=== PATIENT | female | born 1965 | race Caucasian/White ===

== ENCOUNTER 2020-03-24 16:25 | Outpatient (REF) | payer OTHER, SELFPAY | END 2020-03-24 16:26 | disposition home or self-care (01) | LOC: HO.LAB 16:25 | PROVIDERS: Visit Provider Internal Medicine | DX: Z20.828 Contact with and (suspected) exposure to other viral communicable diseases (principal) | CPT/HCPCS: 87635 ==

== ENCOUNTER 2020-04-09 08:55 | Outpatient (REF) | payer OTHER, SELFPAY | END 2020-04-09 08:56 | disposition home or self-care (01) | LOC: HO.LAB 08:55 | PROVIDERS: Visit Provider Internal Medicine | DX: Z20.828 Contact with and (suspected) exposure to other viral communicable diseases (principal) | CPT/HCPCS: 87635 ==

== ENCOUNTER 2020-04-28 08:46 | Outpatient (REF) | payer OTHER, SELFPAY | END 2020-04-28 08:47 | disposition home or self-care (01) | LOC: HO.LAB 08:46 | PROVIDERS: PCP Internal Medicine; Visit Provider Internal Medicine | DX: Z20.828 Contact with and (suspected) exposure to other viral communicable diseases (principal) | CPT/HCPCS: C9803; U0003 ==

== ENCOUNTER 2020-05-27 11:35 | Outpatient (REF) | payer OTHER, SELFPAY | END 2020-05-27 11:36 | disposition home or self-care (01) | LOC: HO.LAB 11:35 | PROVIDERS: PCP Internal Medicine; Visit Provider Internal Medicine | DX: Z20.828 Contact with and (suspected) exposure to other viral communicable diseases (principal) | CPT/HCPCS: C9803; U0003 ==

== ENCOUNTER 2022-05-16 14:00 | Outpatient (RCR) | payer OTHER, SELFPAY | END 2022-05-16 14:57 | disposition home or self-care (01) | LOC: HO.PT 14:00 | PROVIDERS: PCP Internal Medicine; Visit Provider Internal Medicine | DX: M54.50 Low back pain, unspecified (principal); M46.1 Sacroiliitis, not elsewhere classified | CPT/HCPCS: 97110; 97112; 97140; 97161 ==

== ENCOUNTER 2022-12-16 08:58 | Outpatient (REF) | payer OTHER, SELFPAY ==
[2022-12-19 13:37] LABS: TS Negative Control Passed; TS Panel A 2; TS Panel B 0; TS Positive Control Passed; TSpotTB Negative (Negative)
[2022-12-19 23:54] LABS: Rubeola IgG (Measles) >300.00 AU/mL
[2022-12-20 15:43] LABS: Anti Nuclear Antibody Screen NEGATIVE (NEGATIVE)
== END 2022-12-16 08:59 | disposition home or self-care (01) ==
LOC: HO.LAB 08:58
PROVIDERS: Visit Provider Internal Medicine
DX: Z01.84 Encounter for antibody response examination (principal); M25.50 Pain in unspecified joint; R19.7 Diarrhea, unspecified
CPT/HCPCS: 36415; 80061; 80076; 82306; 85025; 86038; 86140; 86431; 86481; 86735; 86762; 86765

== ENCOUNTER 2023-06-07 12:50 | Outpatient (REF) | payer OTHER, SELFPAY | END 2023-06-07 12:51 | disposition home or self-care (01) | LOC: HO.XRAY 12:50 | PROVIDERS: PCP Internal Medicine; Visit Provider Internal Medicine | DX: M72.2 Plantar fascial fibromatosis (principal) | CPT/HCPCS: 73630 ==

== ENCOUNTER 2023-07-10 10:35 | Outpatient (REF) | payer OTHER, SELFPAY ==
[2023-07-10 11:13] LABS: COVID-19 Test Negative (Negative); IDNOW Serial# 58CA691E; IDNOW Serial# 9DB6401D; Influenza A Negative (Negative); Influenza B2 Negative (Negative)
== END 2023-07-10 10:36 | disposition home or self-care (01) ==
LOC: HO.LAB 10:35
PROVIDERS: Visit Provider Physician Assistant Medical
DX: Z11.52 Encounter for screening for COVID-19 (principal); M79.10 Myalgia, unspecified site; R68.89 Other general symptoms and signs
CPT/HCPCS: 87502; 87635

== ENCOUNTER 2023-10-12 07:23 | Outpatient (REF) | payer OTHER, SELFPAY ==
[2023-10-12 09:19] LABS: Cholesterol 197 mg/dL (<200); HDL Cholesterol 76 mg/dL (>40); LDL Cholesterol Calculated 112 mg/dL (<100); Triglycerides 45 mg/dL (<150)
[2023-10-12 09:51] LABS: Cortisol Random 10.9 ug/dL
[2023-10-12 18:22] LABS: Cortisol Random 6.8 ug/dL
[2023-10-13 07:24] LABS: LDL Cholesterol Direct 88 mg/dL (<100)
[2023-10-18 14:08] LABS: Adrenocorticotropic Hormone 10 pg/mL (6-50)
== END 2023-10-12 07:24 | disposition home or self-care (01) ==
LOC: HO.LAB 07:23
PROVIDERS: PCP Internal Medicine; Visit Provider Nurse Practitioner Family
DX: R53.83 Other fatigue (principal); E78.5 Hyperlipidemia, unspecified
CPT/HCPCS: 36415; 80061; 82024; 82533; 83721

== ENCOUNTER 2023-11-30 11:23 | Outpatient (REF) | payer OTHER, SELFPAY ==
--- NOTE | ~2023-11-30 | XR_ITS ---
Examination: Bilateral knees CLINICAL INFORMATION: Pain COMPARISON: 07/18/2019 right knee TECHNIQUE: AP, lateral, oblique views of both knees. FINDINGS: Left kidney revealed no evidence of joint effusion fractures or osseous destruction. There is no narrowing of the joint spaces. Right knee revealed no evidence of fractures, dislocation, joint effusion. Osseous structures are unremarkable. XR/XR knee LT 3V IMPRESSION: unremarkable bilateral knees
--- NOTE | ~2023-11-30 | XR_ITS ---
Examination: Right hand and right wrist. COMPARISON: None TECHNIQUE: 3 views of right hand and right wrist CLINICAL INFORMATION: Pain FINDINGS: There is no evidence of fractures or osseous destruction. No evidence of osteoarthritis. Soft tissues unremarkable. XR/XR hand RT min 3V IMPRESSION: no abnormal findings
--- NOTE | ~2023-11-30 | XR_ITS ---
Examination: Bilateral knees CLINICAL INFORMATION: Pain COMPARISON: 07/18/2019 right knee TECHNIQUE: AP, lateral, oblique views of both knees. FINDINGS: Left kidney revealed no evidence of joint effusion fractures or osseous destruction. There is no narrowing of the joint spaces. Right knee revealed no evidence of fractures, dislocation, joint effusion. Osseous structures are unremarkable. XR/XR knee RT 3V IMPRESSION: unremarkable bilateral knees
--- NOTE | ~2023-11-30 | XR_ITS ---
Examination: Right hand and right wrist. COMPARISON: None TECHNIQUE: 3 views of right hand and right wrist CLINICAL INFORMATION: Pain FINDINGS: There is no evidence of fractures or osseous destruction. No evidence of osteoarthritis. Soft tissues unremarkable. XR/XR wrist RT min 3V IMPRESSION: no abnormal findings
== END 2023-11-30 11:24 | disposition home or self-care (01) ==
LOC: HO.HHCX 11:23
PROVIDERS: Visit Provider Internal Medicine
DX: M17.10 Unilateral primary osteoarthritis, unspecified knee (principal); M65.9 Synovitis and tenosynovitis, unspecified; M25.531 Pain in right wrist; M79.641 Pain in right hand
CPT/HCPCS: 73110; 73130; 73562

== ENCOUNTER 2023-12-05 09:24 | Outpatient (REF) | payer OTHER, SELFPAY ==
[2023-12-05 12:24] LABS: Cholesterol 205 mg/dL (<200); HDL Cholesterol 80 mg/dL (>40); LDL Cholesterol Calculated 117 mg/dL (<100); Triglycerides 41 mg/dL (<150)
[2023-12-05 12:34] LABS: Erythrocyte Sedimentation Rate 6 MM/HR (0-20)
[2023-12-05 12:43] LABS: TSH reflex Free T4 2.42 uIU/mL (0.32-4.0); Vitamin D 25-OH Total 51.8 ng/mL (>30)
[2023-12-05 13:16] LABS: Reflex LDLD? No
== END 2023-12-05 09:25 | disposition home or self-care (01) ==
LOC: HO.HHCL 09:24
PROVIDERS: Visit Provider Internal Medicine
DX: M17.0 Bilateral primary osteoarthritis of knee (principal); M17.10 Unilateral primary osteoarthritis, unspecified knee
CPT/HCPCS: 36415; 80061; 82306; 84443; 85652

== ENCOUNTER 2024-02-29 10:58 | Outpatient (REF) | payer OTHER, SELFPAY ==
--- NOTE | ~2024-02-29 | XR_ITS ---
EXAMINATION: XR FOOT, RIGHT CLINICAL INFORMATION: Right foot trauma. Pain. COMPARISON: Right foot x-rays of 06/07/2023 TECHNIQUE: AP, lateral, and oblique views of the right foot. FINDINGS: There is no evidence of acute fracture or dislocation. No focal erosion. Normal osseous mineralization. No soft tissue air or radiopaque foreign body is seen. No significant abnormality of the bones, joints or soft tissues is demonstrated. XR/XR foot RT min 3V IMPRESSION: No evidence of acute fracture or dislocation in the right foot. Electronically signed by: Norman Haji MD 03/14/2024 10:13 AM EDT
--- NOTE | ~2024-02-29 | XR_ITS ---
EXAMINATION: XR KNEE, LEFT CLINICAL INFORMATION: Left knee pain COMPARISON: Left knee x-rays of 11/30/2023 TECHNIQUE: Three views of the left knee. FINDINGS: Probable minimal narrowing of the knee joint spaces. No evidence of significant subarticular sclerosis and cystic changes. Minimal motion artifacts are noted. No evidence of acute fracture or dislocation. No suprapatellar joint effusion. No significant marginal osteophytic changes are noted. No evidence of radiopaque foreign body or soft tissue air. No soft tissue calcifications. XR/XR knee LT 3V IMPRESSION: No evidence of acute fracture or dislocation in the left knee. Minimal degenerative changes in the left knee. Electronically signed by: Norman Haji MD 03/14/2024 10:19 AM EDT
== END 2024-02-29 10:59 | disposition home or self-care (01) ==
LOC: HO.XRAY 10:58
PROVIDERS: PCP Internal Medicine; Visit Provider Internal Medicine
DX: S99.921A Unspecified injury of right foot, initial encounter (principal); S93.601A Unspecified sprain of right foot, initial encounter; M17.12 Unilateral primary osteoarthritis, left knee
CPT/HCPCS: 73562; 73630

== ENCOUNTER 2024-03-15 09:20 | Outpatient (REF) | payer OTHER, SELFPAY ==
[2024-03-21 23:12] LABS: Testosterone, Total 50 ng/dL (2-45)
== END 2024-03-15 09:21 | disposition home or self-care (01) ==
LOC: HO.HHCL 09:20
PROVIDERS: Visit Provider Advanced Practice Midwife
DX: R37 Sexual dysfunction, unspecified (principal); Z79.899 Other long term (current) drug therapy
CPT/HCPCS: 36415; 84403

== ENCOUNTER 2024-05-21 17:13 | Outpatient (REF) | payer OTHER, SELFPAY ==
[2024-05-22 11:47] LABS: Bacterial Vaginosis PCR NEGATIVE (Negative); Candida Group PCR NOT DETECTED (Not Detect); Candida glab krusei PCR NOT DETECTED (Not Detect); Trichomonas vaginalis PCR NOT DETECTED (Not Detect)
--- OUTSIDE RECORDS SUMMARY | 2024-05-22 22:30 | XMS_ITS ---
Author Name [facility] Organization Unknown Results Test Name/Text Value Interpretation Date Range Source TSH WITH REFLEX T4 FREE 1.92uIU/mL Normal [id number] 0.35 - 4.5 [facility] PROLACTIN 6.6ng/mL Normal [id number] [facility] VITAMIN D (25-HYDROXY) 37.4ng/mL Normal [id number] 30 - 100 [facility] WBC 5.6K/uL Normal [id number] 3.7 - 10.3 [facility] ABSOLUTE GRANULOCYTES 3.1K/uL Normal [id number] 2.2 - 7.3 [facility] ABSOLUTE BASO 0.1K/uL Normal [id number] 0 - 0.2 [facility] RBC 4.42M/uL Normal [id number] 4 - 5.4 [facility] H IMMATURE GRANULOCYTES 0% Normal [id number] 0 - 0 .45 [facility] EOSINOPHILS 3% Normal [id number] 0 - 6 [facility] MPV 11fL Normal [id number] 8 - 12 [facility] H ABSOLUTE MONOS 0.4K/uL Normal [id number] 0.2 - 1.5 CT [facility] BASOPHILS 1% Normal [id number] 0 - 2 [facility] H NUCLEATED RBC 0% Normal [id number] 0 - 0.2 [facility] MCV 92fL Normal [id number] 83 - 102 [facility] H MCH 30PG Normal [id number] 27 - 34 [facility] H HCT 40.6% Normal [id number] 36 - 46 [facility] H ABSOLUTE LYMPHS 1.8K/uL Normal [id number] 1.5 - 4.9 C [facility] GRANULOCYTES 56% Normal [id number] 23 - 78 [facility] MONOCYTES 7% Normal [id number] 0 - 12 [facility] H ABSOLUTE EOS 0.2K/uL Normal [id number] 0 - 0.7 [facility] LYMPHS 32% Normal [id number] 16 - 50 [facility] H ABSOLUTE IMMATURE GRANULOCYTES 0K/uL Normal [id number] 0 - 0.3 [facility] HGB 13.2g/dL Normal [id number] 12.1 - 15.7 [facility] MMH RDW 14.1% Above high normal [id number] 11.1 - 13 .3 [facility] PLATELET COUNT 205K/uL Normal [id number] 150 - 480 [facility] MCHC 32.5g/dL Normal [id number] 31 - 36 [facility] ABSOLUTE NUCLEATED RBC 0K/uL Normal [id number] 0 - 0.012 [facility]
== END 2024-05-21 17:14 | disposition home or self-care (01) ==
LOC: HO.HHCLNP 17:13
PROVIDERS: Visit Provider Advanced Practice Midwife
DX: N89.8 Other specified noninflammatory disorders of vagina (principal)
CPT/HCPCS: 0352U

== ENCOUNTER 2024-11-27 12:46 | Outpatient (REF) | payer OTHER, SELFPAY ==
--- NOTE | ~2024-11-27 | XR_ITS ---
EXAMINATION: XR HIP, RIGHT CLINICAL INFORMATION: right hip pain COMPARISON: None available. TECHNIQUE: Two views of the right hip. FINDINGS: No fracture. Alignment is anatomic. Hip joint space is maintained. Soft tissues are unremarkable. XR/XR hip RT min 2V IMPRESSION: Normal right hip. Electronically signed by: Dante Hagan MD 11/27/2024 02:00 PM EDT
--- OUTSIDE RECORDS SUMMARY | 2024-11-27 14:36 | XMS_ITS | Encounter Summary ---
Author Organization [employer] Address [address] [facility] [place] [address] Care Team Providers Care Sales Consultant Insurance Name Role Phone Amara Lou MD Primary Care Provider + Reason for Visit * Reason Comments Med Refill Encounter Details Date Type Department Care Team ([facility] st Contact Info) Description 09/06/2023 Refill [facility] OPTOMETRY [address] [place], [place] [phone] Garrett, Jaqueline, OD [address] [place] [address] Social History Tobacco Use Types Packs/Day Years Used Date Smoking Tobacco: Never Smokeless Tobacco: Never Alcohol Use Standard Drinks/Week Comments Never 0 (1 standard drink = 0.6 oz pur e alcohol) Housing Stability Answer Date Recorded What is your housing situation today? I have sharlajane cole 04/11/[address] you li ve. Do you have problems with any of the following? None of the above 04/11/2023 Food Insecurity Answer Date Recorded Within the past 12 months, y ou worried that your food would run out before you got money to buy more: Never True 04/11/2023 Within the past 12 months,th e food you bought just didn't last and you didn't have enough money to get more: Never True Transportation Answer Date Recorded In the past 12 months, has l ack of transportation kept you from medical appts, meetings, work or from getting things needed for daily living? No 04/11/2023 Utilities Answer Date Recorded In the past 12 months, has t he electric, gas, oil or water company threatened to shut off services in your home? No 04/11/2023 Depression Answer Date Recorded Patient Health Questionnaire-2 Score 0 11/24/2022 Comments Unknown Sex and Gender Information Value Date Recorded Sex Assigned at Female 04/11/2022 10:16 AM EDT Legal Sex Female 10:16 AM EDT Gender Identity Female 04/11/2022 10:16 AM EDT Sexual Orientation Choose not to disclose 2021 10:16 AM EDT documented as of this encounter Plan of Treatment Upcoming Encounters Date Type Department Care Team (Late st Contact Info) Description 12/05/2024 9:45 AM EDT Office Visit [facility] MEDICINE [address] [place] [address] [phone] Amara Lou MD [address] [place] [phone] documented as of this encounter Visit Diagnoses Not on filedocumented in this encounter Care Teams Sales Consultant Insurance Relationship Specialty Start Date End Date Amara Lou MD [address] [place] [address] [phone] PCP - General Family Medicine 03/14/16 documented as of this encounter
== END 2024-11-27 12:47 | disposition home or self-care (01) ==
LOC: HO.XRAY 12:46
PROVIDERS: PCP Internal Medicine; Visit Provider Internal Medicine
DX: M46.1 Sacroiliitis, not elsewhere classified (principal)
CPT/HCPCS: 73502

== ENCOUNTER → 2024-11-27 12:50 | Outpatient (BNV) | payer OTHER, SELFPAY | PROVIDERS: PCP Internal Medicine; Visit Provider Radiology Diagnostic Radiology | DX: M25.551 Pain in right hip (principal) | CPT/HCPCS: 73502 ==

== ENCOUNTER 2024-12-04 09:15 | Outpatient (REF) | payer OTHER, SELFPAY ==
[2024-12-04 09:30] LABS: MANUAL DIFF FLAG NO
[2024-12-04 09:50] LABS: Basophils Absolute Auto 0.1 X10*3/uL (0.0-0.2); Basophils Percent Auto 1.7 % (0-2); Eosinophils Absolute Auto 0.2 X10*3/uL (0.0-0.4); Eosinophils Percent Auto 3.6 % (0-4); Hematocrit 40.2 % (37.0-47.0); Hemoglobin 13.2 g/dl (12.0-16.0); Imm Gran Abs Auto 0.02 X10*3/uL (0.00-0.03); Imm Gran Pct Auto 0.4 % (0.0-0.4); Lymphocytes Absolute Auto 1.7 X10*3/uL (1.2-4.9); Lymphocytes Percent Auto 34.9 % (20-40); Mean Corpuscular HGB Conc 32.8 g/dl (31.0-35.0); Mean Corpuscular Hemoglobin 30.1 pg (27.0-33.0); Mean Corpuscular Volume 91.8 fL (80.0-98.0); Mean Platelet Volume 10.3 fL (9.4-12.3); Monocytes Absolute Auto 0.3 X10*3/uL (0.1-1.2); Monocytes Percent Auto 6.1 % (2-11); Neutrophils Absolute Auto 2.5 x10*3/uL (2.0-8.3); Neutrophils Percent Auto 53.3 % (45-73); Platelet Count 204 X10*3/uL (160-400); Red Blood Count 4.38 X10*6/uL (4.20-5.50); Red Cell Distribution Width 14.2 % (11.0-16.0); White Blood Count 4.8 X10*3/uL (4.8-10.8)
--- OUTSIDE RECORDS SUMMARY | 2024-12-04 10:05 | XMS_ITS | Encounter Summary ---
Author Organization [employer] Address [address] 7[address] [place] [address] Care Team Providers Care Ornamental Painter Name Role Phone Amara Lou MD Primary Care Provider + Reason for Visit * Reason Comments Med Refill Encounter Details Date Type Department Care Team ([facility] st Contact Info) Description 09/06/2023 Refill [facility] OPTOMETRY [address] [place], [place] [phone] Garrett, Jaqueline, OD [address] [place] [address] Social History Tobacco Use Types Packs/Day Years [...] Description 12/05/2024 9:45 AM EDT Office Visit [facility] MEDICINE [address] [place] [address] [phone] Amara Lou MD [address] [place] [phone] documented as of this encounter Visit Diagnoses Not on filedocumented in this encounter Care Teams Ornamental Painter Relationship Specialty Start Date End Date Amara Lou MD [address] [place] [address] [phone] PCP - General Family Medicine 03/14/16 documented as of this encounter
[2024-12-04 10:20] LABS: Rheumatoid Factor < 13.0 IU/mL (<15.0)
[2024-12-04 10:21] LABS: C Reactive Protein 0.46 mg/dL (< or = 0.50); Cholesterol 213 mg/dL (<200); HDL Cholesterol 83 mg/dL (>40); LDL Cholesterol Calculated 121 mg/dL (<100); Triglycerides 46 mg/dL (<150)
[2024-12-04 10:33] LABS: Erythrocyte Sedimentation Rate 9 MM/HR (0-20)
[2024-12-04 10:45] LABS: TSH reflex Free T4 3.23 uIU/mL (0.32-4.0); Uric Acid 4.2 mg/dL (2.4-5.7); Vitamin D 25-OH Total 29.3 ng/mL (>30)
[2024-12-04 10:48] LABS: HBS Num1 17.15 mIU/mL (0-7.99); HBc Num1 0.05 S/CO (0.00-0.79); HBsAGNum1 0.44 S/CO (0.00-0.99); Hepatitis B Core Antibody Nonreactive (Nonreactive); Hepatitis B Surface Antigen Negative (Negative); ~HepC Num1 0.07 S/CO (0.00-0.79); ~Hepatitis A Antibody IgM Nonreactive (Nonreactive); ~Hepatitis B Surface Antibody REACTIVE (Nonreactive); ~Hepatitis C Antibody Nonreactive (Nonreactive)
[2024-12-04 11:43] LABS: Reflex LDLD? No
[2024-12-06 11:43] LABS: Anti Nuclear Antibody Screen NEGATIVE (NEGATIVE)
== END 2024-12-04 09:16 | disposition home or self-care (01) ==
LOC: HO.LAB 09:15
PROVIDERS: PCP Internal Medicine; Visit Provider Internal Medicine
DX: M17.0 Bilateral primary osteoarthritis of knee (principal); F41.9 Anxiety disorder, unspecified; N95.1 Menopausal and female climacteric states
CPT/HCPCS: 36415; 80061; 82306; 84443; 84550; 85025; 85652; 86038; 86140; 86431; 86704; 86706; 86709; 86803; 87340

== ENCOUNTER 2025-02-05 14:27 | Outpatient (AMB) | payer OTHER, SELFPAY ==
--- NOTE | 2025-02-05 14:48 | MHC.OFFVIS ---
Vital Signs 02/05/25 14:56 Height 5 ft Weight 127 lb BMI 24.8 BP 85/51 L Blood Pressure Location Lt brachial Position Sitting Pulse 86 Pulse Oximetry (%) 96 Oxygen Delivery Method Room Air Intake Visit Reasons: epigastric pain Intake Note: Patient new consult for Epigastric pain. Patient cc: GERD, nauseas on and off, burping. abdominal pain/no digestive the food, and loose stool. Denies any other GI issues. Heel Builder Required: No Accompanied by: Self / Same As Patient Allergies clarithromycin (CLARITHROMYCIN) Allergy (Intermediate, Verified 02/05/25 15:06) INSOMNIA HPI Comments Details: 60 y.o F with PMH of PUD s/p partial gastrectomy, POTS, asthma who is here for GI issues as below. Pt reports longstanding issues with gastritis and gastric ulcers - had to have a surgery back in [facility] for duodenal ulcer when she was in her teens. Is very sensitive to certain foods in terms of pain and bloating. More recently since 2-3 months ago, has been noticing increased bloating and discomfort juan c on empty stomach. Has increased belching. Unable to tolerate her morning coffee. Sometimes takes crackers to help. Bowels are normal colored and normal consistency. Has been taking pantoprazole which hasnt been helping. Prev prescribed famotidine by [facility] which was helpful. Also notices some correlation with stress levels at home - was sick recently. Last colo around 2019 per pt report with 10 year recall. [facility], [facility] Medical History (Updated 02/05/25 @ 15:36 by Larisa Tony MD) History of gastric ulcer Prolapsed external hemorrhoids Surgical History (Updated 02/05/25 @ 17:11 by Larisa Tony MD) Hx of section History of partial gastrectomy Social History (Updated 02/05/25 @ 15:10 by April Wyatt) Household Members: Family Alcohol intake: never Patient Tobacco Use Status: Never used Tobacco Review of Systems Const All systems reviewed & are unremarkable except as noted in HPI and below Physical Exam Exam Exam: No apparent distress Nonicteric Abdomen soft, nondistended Alert and oriented x3, normal gait Vital Signs: Last Vital Signs Pulse 86 02/05/25 14:56 BP 85/51 L 02/05/25 14:56 Pulse Ox 96 02/05/25 14:56 Oxygen Delivery Method Room Air 02/05/25 14:56 BMI result Body Mass Index 24.8 Assessment & Plan Assessment & Plan (1) Postprandial epigastric pain: Code(s): R10.13 - Epigastric pain Category: Medical (2) Abdominal bloating: Code(s): R14.0 - Abdominal distension (gaseous) Category: Medical (3) History of partial gastrectomy: Code(s): Z90.3 - Acquired absence of stomach [part of] Category: Medical Plan Ddx include recurrent PUD, H pylori gastritis or ulcer, symptomatic cholelithiasis, celiac, GERD. Plan: - Labs - US Abd - UGIS - EGD to be booked - H Pylori testing OFF ppi and H2 wanda x 2 weeks - Switch to famotidine 20 once daily FOllow up after egd Orders: Orders TSH reflex Free T4 Today R14.0 - Abdominal distension (gaseous) US abdomen complete Today R10.13 - Epigastric pain FL upper GI series Today R10.13 - Epigastric pain Transglutaminase IgA Today R14.0 - Abdominal distension (gaseous) Immunoglobulin A Today R14.0 - Abdominal distension (gaseous) Medications: Changed From famotidine (Heartburn Relief (famotidine)) 10 mg PO BID 3 months 180 tabs 3RF To famotidine 20 mg PO DAILY 90 tabs 0RF 90 days Coding Level of Care Code New Pt Level 4 (54179) Complex EM visit Add On G2211 Diagnoses Postprandial epigastric pain R10.13 Abdominal bloating R14.0 History of partial gastrectomy Z90.3
[2025-02-05 14:56] VITALS: BP 85/51; PULSE 86; O2SAT 96; BMI 24.8
--- OUTSIDE RECORDS SUMMARY | 2025-02-05 15:28 | XMS_ITS | Encounter Summary ---
Author Organization [employer] Address [address] [facility] 7 [place] [address] Care Team Providers Care Client Service Professional Name Role Phone Amara Lou MD Primary Care Provider + Encounter Details Date Type Department Care Team (Latest Contact Info) Description 07/03/2019 Abstract [facility] CONVERSIONS Dental, Provider, DDS Social History Tobacco Use Types Packs/Day Years Used Date Smoking Tobacco: Never Assessed Comments Unknown Sex and Gender Information Value Date Recorded Sex Assigned at Female 04/11/2022 10:16 AM EDT Legal Sex Female 10:16 AM EDT Gender Identity Female 04/11/2022 10:16 AM EDT Sexual Orientation Choose not to disclose 2021 10:16 AM EDT documented as of this encounter Plan of Treatment Upcoming Encounters Date Type Department Care Team (Late st Contact Info) Description 02/18/2025 9:00 AM EDT Office Visit [facility] MEDICINE [address] [place] [address] Amara Lou MD [address] [place] [address] documented as of this encounter Visit Diagnoses Not on filedocumented in this encounter Care Teams Client Service Professional Relationship Specialty Start Date End Date Amara Lou MD [address] [place] [phone] PCP - General Family Medicine 03/14/16 documented as of this encounter
--- OUTSIDE RECORDS SUMMARY | 2025-02-05 15:28 | XMS_ITS | Encounter Summary ---
Author Organization [employer] Address [address] [facility] 7 [place] [address] Care Team Providers Care Grape Grower Name Role Phone Amara Lou MD Primary Care Provider + Reason for Visit * Reason Comments Med Refill Encounter Details Date Type Department Care Team (Late st Contact Info) Description 11/04/2022 Refill [facility] MEDICINE [address] [place] [address] [phone] Amara Lou MD [address] [place] [address] [phone] Vertigo Social History Tobacco Use Types Packs/Day Years Used Date Smoking Tobacco: Never Smokeless Tobacco: Never Comments Unknown Sex and Gender Information Value [...] Description 02/18/2025 9:00 AM EDT Office Visit [facility] MEDICINE [address] [place] [address] [phone] Amara Lou MD [address] [place] [address] [phone] documented as of this encounter Visit Diagnoses Diagnosis Vertigo Dizziness and giddiness documented in this encounter Care Teams Grape Grower Relationship Specialty Start Date End Date Amara Lou MD [address] [place] [phone] PCP - General Family Medicine 03/14/16 documented as of this encounter
--- OUTSIDE RECORDS SUMMARY | 2025-02-05 15:28 | XMS_ITS | Encounter Summary ---
Author Organization [employer] Address [address] [facility] [address] [place] [address] Care Team Providers Care Hydroponics Worker Name Role Phone Amara Lou MD Primary Care Provider + Reason for Visit * Reason Comments Med Refill Encounter Details Date Type Department Care Team ([facility] st Contact Info) Description 09/06/2023 Refill [facility] OPTOMETRY [address] [place], [place] [phone] Garrett, Jaqueline, OD [address] [place] [address] Social History Tobacco Use Types Packs/Day Years [...] Description 02/18/2025 9:00 AM EDT Office Visit [facility] MEDICINE [address] [place] [address] [phone] Amara Lou MD [address] [place] [phone] documented as of this encounter Visit Diagnoses Not on filedocumented in this encounter Care Teams Hydroponics Worker Relationship Specialty Start Date End Date Amara Lou MD [address] [place] [address] [phone] PCP - General Family Medicine 03/14/16 documented as of this encounter
--- OUTSIDE RECORDS SUMMARY | 2025-02-05 15:28 | XMS_ITS | Encounter Summary ---
Author Organization [employer] Address [address] [facility] 7 [place] [address] Care Team Providers Care Service Specialist Name Role Phone Amara Lou MD Primary Care Provider + Encounter Details Date Type Department Care Team (Latest Contact Info) Description 08/13/2020 Abstract [facility] CONVERSIONS Dental, Provider, DDS Social History [...] Description 02/18/2025 9:00 AM EDT Office Visit [facility] MEDICINE [address] [place] [address] Amara Lou MD [address] [place] [address] documented as of this encounter Visit Diagnoses Not on filedocumented in this encounter Care Teams Service Specialist Relationship Specialty Start Date End Date Amara Lou MD [address] [place] [address] PCP - General Family Medicine 03/14/16 documented as of this encounter
--- OUTSIDE RECORDS SUMMARY | 2025-02-05 15:28 | XMS_ITS ---
Author Name [facility] Organization Unknown Results Test Name/Text Value Interpretation Date Range Source PROLACTIN 6.6 ng/mL Normal 09/28/2023 [facility] VITAMIN D (25-HYDROXY) 37.4 ng/mL Normal 09/27/2023 30 - 100 [facility] TSH WITH REFLEX T4 FREE 1.92 uIU/mL Normal 09/28/2023 0.3 5 - 4.5 [facility] ABSOLUTE BASO 0.1 K/uL Normal 09/27/2023 0 - 0.2 [facility] EOSINOPHILS 3.0 % Normal 09/27/2023 0 - 6 [facility] H WBC 5.6 K/uL Normal 09/27/2023 3.7 - 10.3 [facility] ABSOLUTE GRANULOCYTES 3.1 K/uL Normal 09/27/2023 2.2 - 7 .3 [facility] HGB 13.2 g/dL Normal 09/27/2023 12.1 - 15.7 [facility] MCV 92.0 fL Normal 09/27/2023 83 - 102 [facility] MCHC 32.5 g/dL Normal 09/27/2023 31 - 36 [facility] ABSOLUTE LYMPHS 1.8 K/uL Normal 09/27/2023 1.5 - 4.9 [facility] PLATELET COUNT 205.0 K/uL Normal 09/27/2023 150 - 480 [facility] IMMATURE GRANULOCYTES 0.0 % Normal 09/27/2023 0 - 0.4 5 [facility] BASOPHILS 1.0 % Normal 09/27/2023 0 - 2 [facility] HCT 40.6 % Normal 09/27/2023 36 - 46 [facility] MONOCYTES 7.0 % Normal 09/27/2023 0 - 12 [facility] MPV 11.0 fL Normal 09/27/2023 8 - 12 [facility] MCH 30.0 PG Normal 09/27/2023 27 - 34 [facility] NUCLEATED RBC 0.0 % Normal 09/27/2023 0 - 0.2 [facility]H ABSOLUTE EOS 0.2 K/uL Normal 09/27/2023 0 - 0.7 [facility] MH RDW 14.1 % Above high normal 09/27/2023 11.1 - 13.3 [facility] GRANULOCYTES 56.0 % Normal 09/27/2023 23 - 78 [facility] MH ABSOLUTE MONOS 0.4 K/uL Normal 09/27/2023 0.2 - 1.5 [facility] RBC 4.42 M/uL Normal 09/27/2023 4 - 5.4 [facility] LYMPHS 32.0 % Normal 09/27/2023 16 - 50 [facility] ABSOLUTE NUCLEATED RBC 0.0 K/uL Normal 09/27/2023 0 - 0. 012 [facility] ABSOLUTE IMMATURE GRANULOCYTES 0.0 K/uL Normal 09/27/2023 0 - 0.3 [facility] Encounters Encounter Type Encounter Reason Primary Diagnosis Location Date Ambulatory [facility] 09/27/2023 Care Team Organization Name Specialty Phone Email Start Date End [facility] provided,No Primary Care 09/28/2023 01/05/2024 [facility] No provided Primary Care 09/27/2023
--- OUTSIDE RECORDS SUMMARY | 2025-02-05 15:28 | XMS_ITS | Encounter Summary ---
Author Organization [employer] Address [address] [facility] [address] [facility] [address] [place] [address] Care Team Providers Care Helicopter Pilot Name Role Phone Amara Lou MD Primary Care Provider + Encounter Details Date Type Department Care Team ([facility] st Contact Info) Description 12/12/2024 Results Follow-Up [facility] MEDICINE [address] [place] [address] Teri Kat, [facility] [address] [place] [address] Testosterone, Total, males (Adult), [place] Social History Tobacco Use Types Packs/Day Years Used Date Smoking Tobacco: Never Passive Smoke Exposure: Never Smokeless Tobacco: Never Alcohol Use Standard Drinks/Week Comments Never 0 (1 standard drink = 0.6 oz pur e alcohol) Housing Stability Answer Date Recorded What is your housing situation today? I have sharla cole 12/05/[address] you li ve. Do you have problems with any of the following? None of the above 12/05/2024 Food Insecurity Answer Date Recorded Within the past 12 months, y ou worried that your food would run out before you got money to buy more: Never True 12/05/2024 Within the past 12 months,th e food you bought just didn't last and you didn't have enough money to get more: Never True Transportation Answer Date Recorded In the past 12 months, has l ack of transportation kept you from medical appts, meetings, work or from getting things needed for daily living? No 12/05/2024 Utilities Answer Date Recorded In the past 12 months, has t he electric, gas, oil or water company threatened to shut off services in your home? No 12/05/2024 Depression Answer Date Recorded Patient Health Questionnaire-2 Score 0 12/05/2024 Internet Access Answer Date Recorded Internet Access Q1 No 12/05/2024 Internet Access Q2 I do not want or need it 11/11 Comments No Sex and Gender Information Value Date Recorded [...] AM EDT Office Visit [facility] MEDICINE [address] [place] [phone] Amara Lou MD [address] [place] [phone] documented as of this encounter Visit Diagnoses Not on filedocumented in this encounter Care Teams Helicopter Pilot Relationship Specialty Start Date End Date Amara Lou MD [address] [place] [phone] PCP - General Family Medicine 03/14/16 documented as of this encounter
--- OUTSIDE RECORDS SUMMARY | 2025-02-05 15:28 | XMS_ITS | Encounter Summary ---
Author Organization [employer] Address [address] [facility] 7 [place] [address] Care Team Providers Care Leather Stitcher Name Role Phone Amara Lou MD Primary Care Provider + Reason for Visit * Reason Comments Med Refill Encounter Details Date Type Department Care Team ([facility] Contact Info) Description 12/23/2022 Refill [facility] MEDICINE [address] [place], [place] [phone] Amara Lou MD [address] [place] [address] Vertigo Social History Tobacco Use Types Packs/Day Years Used Date Smoking Tobacco: Never Smokeless Tobacco: Never Alcohol Use Standard Drinks/Week Comments Never 0 (1 standard drink = 0.6 oz pur e alcohol) Depression Answer Date Recorded Patient Health Questionnaire-2 Score 0 11/24/2022 Comments Unknown Sex and Gender Information Value Date Recorded Sex Assigned at Female 04/11/2022 10:16 AM EDT Legal Sex Female 10:16 AM EDT Gender Identity Female 04/11/2022 10:16 AM EDT Sexual Orientation Choose not to disclose 2021 10:16 AM EDT COVID-19 Exposure Response Date Recorded In the last 10 days, have yo u been in contact with someone who was confirmed or suspected to have Coronavirus/COVID-19? No / Unsure 11/24/2022 9:22 AM EDT documented as of this encounter Plan of Treatment Upcoming Encounters Date Type Department Care Team ([facility] Contact Info) Description 02/18/2025 9:00 AM EDT Office Visit [facility] MEDICINE [address] [place] [address] Amara Lou MD [address] [place] [address] documented as of this encounter Visit Diagnoses Diagnosis Vertigo Dizziness and giddiness documented in this encounter Care Teams Leather Stitcher Relationship Specialty Start Date End Date Amara Lou MD [address] [place] [phone] PCP - General Family Medicine 03/14/16 documented as of this encounter
--- OUTSIDE RECORDS SUMMARY | 2025-02-05 15:28 | XMS_ITS | Encounter Summary ---
Author Organization [employer] Address [address] [place] [address] Care Team Providers Care Aerospace Assembler Name Role Phone Amara Lou MD Primary Care Provider + Encounter Details Date Type Department Care Team (Latest Contact Info) Description 06/19/2018 Abstract [facility] CONVERSIONS Dental, Provider, DDS Social History [...] Description 02/18/2025 9:00 AM EDT Office Visit [facility] MEDICINE [address] [place] [address] Amara Lou MD [address] [place] [address] documented as of this encounter Visit Diagnoses Not on filedocumented in this encounter Care Teams Aerospace Assembler Relationship Specialty Start Date End Date Amara Lou MD [address] [place] [address] PCP - General Family Medicine 03/14/16 documented as of this encounter
--- OUTSIDE RECORDS SUMMARY | 2025-02-05 15:28 | XMS_ITS | Clinical Summary ---
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 02/06/20 20 Active zoster vaccine, live, (Zostavax) 00234 UNT/0.65ML injection inject 0.65 milliliter by subcutaneous route once 01/09/20 19 Active estradiol (Estrace) 0.1 MG/GM vaginal creamIndicatio ns:Perimenopau se 0.5g daily x 1 week then 0.5g intravaginally three times per week for 2 weeks then 0.5g intravaginally BIW thereafter 42.5 g 2 01/12/20 23 Active azelastine (Astelin) 0.1 % nasal spray Administer 1 spray into each nostril at bedtime. Use in each nostril as directed 30 mL 01/08/20 24 Active meclizine (Antivert) 12.5 MG tablet TAKE 1 TABLET BY MOUTH THREE TIMES DAILY NEEDED FOR DIZZINESS 90 tablet 1 10/05/19 25 Active meloxicam (Mobic) 15 MG tablet Take 1 tablet (15 mg) by mouth Once per day. 30 tablet 11/28/19 25 026 Active betamethasone valerate (Valisone) 0.1 % cream Apply topically if needed in the morning and at bedtime (dryness). 45 g 2 11/28/19 Active pantoprazole (ProtoNix) 40 MG EC tablet TAKE 1 TABLET BY MOUTH EVERY DAY BEFORE BREAKFAST. DO NOT BREAK, CRUSH, DISSOLVE OR CHEW. 90 tablet 1 12/27/19 25 Active escitalopram (Lexapro) 5 MG tablet Take 1 tablet (5 mg) by mouth Once per day. 90 tablet 1 01/09/20 25 025 Active Acetaminophen Extra Strength 500 MG tablet TAKE 1 TABLET BY MOUTH EVERY 6 HOURS NEEDED FOR MILD PAIN 120 tablet 10/05/19 25 025 Discontin ued(Thera py completed ) venlafaxine XR (Effexor XR) 37.5 MG 24 hr capsule Take 1 capsule (37.5 mg) by mouth 2 times daily. Do not crush or chew. 60 capsule 1 11/28/19 025 Discontin ued(Side effects) Active Problems Problem Noted Date Diagnosed Date Hypercholesterolemia 12/05/2024 Assessment & Plan (12/05/2024 3:12 PM EDT): LDL is slightly high, I discussed with patient regarding low-fat diet and gave her information on lifestyle modifications We discussed re rx options. Recommended moderate amount of exercise and increase consumption of fruit, vegetables, fish and high fiber foods. Should decrease consumption of highly saturated fats or trans fats. Follow lipids in 1 year Hypersomnia 11/27/2024 Assessment & Plan (11/27/2024 12:52 PM EDT): Order labs, it could be also related to menopause or even S-Citalopram. Follow-up with me in 4 to 6 weeks, will consider referral to sleep specialist Bursitis of right hip 11/27/2024 Assessment & Plan (11/27/2024 12:51 PM EDT): Associated to sacroiliitis, she is referred to PT Follow-up in 3 months, may need steroid injection Given information regarding acupuncture Heel pain, chronic, right 02/28/2024 Assessment & Plan (02/28/2024 7:00 PM EDT): Its probably related to a calcaneal spur. Advised to use a donut shaped insole on affected area and re consult prn Dietary counseling 01/08/2024 Exercise counseling 01/08/2024 Overweight 01/08/2024 Assessment & Plan (01/08/2024 10:27 AM EDT): Discussed re weight reduction options including exercise, life style modifications, diet Recommended to decrease soda and sugary beverage consumption, increase protein intake with meals (at least 1 portion of protein with each meal) to assist with satiety, increase dietary fiber Recommended at least 150 min/week of moderate intensity exercise, she exercises routinely. Tenosynovitis of finger and hand 11/30/2023 Assessment & Plan (11/30/2023 3:05 PM EDT): Advised to use hand immobilizer prn activities and overnight Menopause syndrome 11/30/2023 Assessment & Plan (11/27/2024 12:44 PM EDT): We discussed about option treatment for HRT but I told her that importantly she needs to clarify about her mother's history of breast cancer (unclear at this time she did or did not have breast cancer) and also verified with [facility] if her breast lesions are not a contraindication for HRT (I believe they are not, but according to patient they told her there are premalignant lesions?). She will continue on vaginal estrogen cream for dyspareunia I will refer her to pelvic floor physical therapy at the [address] [place] [address] in [place] I will treat anxiety and follow-up with her in 6 weeks Assessment & Plan (01/08/2024 10:23 AM EDT): On estrogen cream by [facility] Advised to discuss systemic HRT instead due to multiple sxs including decreased libido. She inquired about testosterone, we discussed about it being 2nd or 3rd tier rx, mostly for decreased libido and vaginal dryness if not corrected with topical estrogens or systemic HRT (combined). Advised to clarify about her mother's hx early breast Ca? If def not the case, she may bot have contraindication for systemic rx Assessment & Plan (11/30/2023 3:08 PM EDT): Has decreased libido/dyspareunia and exacerbation of arthralgias. Advised to discuss with [facility] re oral HRT, has ? Hx breast Ca? Dental calculus 10/11/2023 Encounter for preventive health examination 11/10 Assessment & Plan (12/05/2024 3:17 PM EDT): Discussed with patient re increase fresh fruit and vegetable intake. Counseled re moderate exercise as tolerated, up to 20min/d Patient feels safe at home. I advised to fill healthcare proxy form and drop with medical records. PAP smear: UTD. Next 1 due on 2027 Mammogram: UTD, next one due on April 2025 Bone density test: N/A, due at age 67 Eye exam: UTD, next one due on April 2025 CRC screen: UTD, next 1 due 2030 Lipids/FBS: UTD, next 1 due in 2025 Vaccinations: Advised to complete Zoster (shingrix 2 ) and recommended Bivalent covid booster, she can have them at a local pharmacy. Other adult immunizations are up-to-date dental visit: Up to date, next 1 due on May 2025 Assessment & Plan (11/24/2022 3:11 PM EDT): Discussed with patient re increase fresh fruit and vegetable intake. Counseled re moderate exercise as tolerated, up to 20min/d Patient feels safe at home. PAP smear: Reportedly up to date, obtain last report from [facility] Mammogram: Reportedly up to date, obtain last report from [facility] Bone density test: N/A, due at age 67 Eye exam: Up to date, next one due on 11/2024 CRC screen: Obtain report form [facility] and fu at next appt Lipids/FBS: TBO Vaccinations: Complete Zoster (shingrix 2 ) and recommended Bivalent covid booster, she will have them at local pharmacy. Order MMR titers, Hep B is up to date, titers due On 2023 Dental visit: Up to date Varicose veins of both lower extremities with pa in 11/24/2022 Assessment & Plan (11/30/2023 2:59 PM EDT): Reassurance, re consult prn May need laser rx, unclear if covered by insurance. Assessment & Plan (11/24/2022 2:52 PM EDT): Multiple spider veins on LE Recons prn, will fu at next RV Anxiety 05/04/2022 Assessment & Plan (11/27/2024 12:50 PM EDT): She has been doing well on Lexapro, however there is concern regarding decreased libido or headaches. She has been cutting down slowly medication, advised her to keep on 2.5 mg for the next 2 or 3 weeks and stop. She will start venlafaxine 37.5 mg daily for the next 2 weeks and increase to 75 mg if tolerated. Follow-up in 6 weeks Assessment & Plan (04/22/2024 5:56 PM EST): She's doing well on lexapro but given patient's concern re low libido, I will slowly titrate it down to off. Will start Lexapro 2.5mg today and fu w me in 2-3m. FU anxiety on HRT Assessment & Plan (12/23/2022 10:27 AM EDT): Seems to be doing well on low dose lexapro, I told her that symptoms may even improve on HRT, see above she is able to contract for safety, no change in medications, FU with me in 6 months Chronic serous otitis media of right ear 022 Inflammation of sacroiliac joint 05/04/2022 Assessment & Plan (11/27/2024 12:51 PM EDT): Given multiple site OA, I will order arthritis workup and x-ray. Rx meloxicam x 1 to 2 weeks and Tylenol as needed Refer to PT and follow-up with me after she completes PT Polyarthropathy 05/04/2022 Assessment & Plan (12/05/2024 3:20 PM EDT): For inflammatory arthritis are negative, discussed with patient that she probably has degenerative arthritis and pain may be triggered by menopausal changes. She will start physical therapy for hip bursitis and will continue with knee OA. Continue meloxicam daily with Tylenol as needed, advised to come to acupuncture. Will work on weight reduction and continue exercise, will consider HRT although I have discussed with her the importance of obtaining accurate information regarding her mother's history of? Breast cancer, she should follow-up with [facility] Primary osteoarthritis of both knees 05/04/2022 Assessment & Plan (11/27/2024 12:50 PM EDT): Chronic, has improved with PT in the past. Advised to take meloxicam for 1 or 2 weeks and then Tylenol as needed Will start with PT for hip bursitis follow-up in 3 months to see if she needs additional treatment for OA refer to orthopedics, may need surgery Assessment & Plan (01/08/2024 10:20 AM EDT): Xray are normal, most likely has mild/mod arthritis, mostly with ligament and meniscal compromise as she's very symptomatic. Start PT Take Meloxicam for 1-2w when sxs restart Advised to come to acupuncture FU in 3m Assessment & Plan (11/30/2023 3:01 PM EDT): Mostly on left side this time. Has failed conservative rx, will order Xrays again and refer to PT Rx Meloxicam daily x 2w + Tylenol prn Fu with me in 1mo, consider referral to orthopedics if sxs have not improved. Assessment & Plan (11/24/2022 3:02 PM EDT): Take tylenol prn, recommend acupuncture. FU with orthopedics for knee injection. 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 Follow-up with me as scheduled for 6 weeks. Assessment & Plan (11/24/2022 3:03 PM EDT): She has been on lexapro 5m > 1y, fu at next appt w labs, consider increasing meds. Feels safe at home Epigastric pain 07/25/2017 Assessment & Plan (04/22/2024 5:54 PM EST): Doing well on Protonix Food intolerance 07/25/2017 Weight loss 07/25/2017 Asthenia 04/24/2017 Viral upper respiratory tract infection 04/04/20 17 Acute back pain with sciatica 02/16/2017 Neck pain 02/16/2017 Mild intermittent asthma 03/28/2016 Postural orthostatic tachycardia syndrome 2012 Cough 02/24/2012 Assessment & Plan (01/08/2024 10:18 AM EDT): It's probably sinus congestin Advised to use Flonase daily and Astelin at bedtime, she's sp Augmentin 10d ago. Order PFTs due to hx asthma and fu in 3m It is most likely residual from covid. Allergic rhinitis 11/14/2011 Breast lump 11/14/2011 Contact dermatitis 11/14/2011 Assessment & Plan (11/27/2024 12:52 PM EDT): On fingers. Advised to use Betamethasone cream and covering affected areas with gauze, she will use protective gloves for house chores or activities that require handling chemicals Disorder of skin 11/14/2011 Tinnitus 11/14/2011 Resolved Problems Problem Noted Date Diagnosed Date Resolved Date Sprain of right ankle 04/22/20242024 Assessment & Plan (04/22/2024 5:57 PM EST): Xrays were normal Continue ankle immobilizer to complete 3-4w Refer to PT Foot trauma, right, initial encounter 02/28/2024 12/05/2024 Assessment & Plan (02/28/2024 7:00 PM EDT): Twist and inversion trauma. See sprain. Arthralgia 11/24/2022 12/05/2024 Assessment & Plan (12/23/2022 2:16 PM EDT): She has underlying OA, no evidence of inflammatory arthritis Or it could be related to menopause vs triggered by environmental agents. Start ibuprofen 600mg in the morning and tylenol 650 qhs x 2w then prn (to decrease risk of GI intolerance) Encouraged to continue exercise, avoid red meat or other inflammatory foods FU in 3 months, repeat CBC with CRP Discussed with pt that symptoms may improve with HRT she will fu with [facility] Assessment & Plan (11/24/2022 2:53 PM EDT): On multiple sites, I don't see significant deformity or inflammation/synovitis today. RO inflammatory arthritis, I think is OA exacerbated by menopause/anxiety. Order labs, use tylenol prn Herpes labialis 05/04/2022 12/05/2024 Herpes simplex 05/04/2022 12/05/2024 Perimenopause 04/04/2017 11/30/2023 Assessment & Plan (12/23/2022 2:17 PM EDT): Pt could be a candidate for HRT but unfortunately I don't have latest PAP smear and mammogram and it is unclear why is she getting them every year. I explained to her that I would like to make sure that there is no other [facility] pathology before I start HRT. She agreed with the POC. We will try to obtain 2021 pap smear and mammorgam from [facility], pt has appointment with [facility] in February. FU in 2mo Assessment & Plan (11/24/2022 3:04 PM EDT): May be a candidate for HRT, I told her to fu with her [facility]. Order labs to evaluate CV RF, dayami and PAP smear results n/a t me FU at upcoming appt consider vaginal HRT cream Encounters Date Type Department Care Team Description 12/25/2024 Refill [facility] [address] [place], [place] [phone] Rodrigo Lou MD 12/12/2024 Results Follow-Up [address] [address] Teri Kat CNM Testosterone, Total, males (Adult), [place] 12/11/[address] [address] Rodrigo Lou MD 12/05/2024 9:45 AM EDT Office Visit [address] [address] Rodrigo Lou MD Encounter for preventive health examination (Primary Dx); Hypercholesterolemia; Polyarthropathy; Anxiety disorder, transient organic 12/05/2024 Travel 12/04/[address] [address] Rodrigo Lou MD chart prep 12/03/2024 Results Follow-Up [address] [address] Rodrigo Lou MD XR Hip 2 or 3 Views Right 11/27/2024 10:00 AM EDT Office Visit [address] [address] Rodrigo Lou MD Menopause syndrome (Primary Dx); Allergic contact dermatitis, unspecified trigger; Anxiety; Primary osteoarthritis of both knees; Bursitis of other bursa of right hip; Inflammation of sacroiliac joint (CMS/HCC); Hypersomnia 11/27/2024 Patient Outreach [address] [address] Rodrigo Lou MD Pre-visit Planning (SDOH to be done in office ) 11/27/2024 Travel 11/26/2024 Telephone [facility] [address] [place] [address] Rodrigo Lou MD Chart prep 11/20/2024 Patient Outreach [facility] [address] [place], [place] [phone] Rodrigo Lou MD Pre-visit Planning (SDOH unable to reach [facility] ) from Last 3 Months Immunizations Immunization Administration Dates Next Due Hep B, adult 06/12/2001 Influenza Injectable Quadriv alant Preservative Free IIV4 MDCK 02/24/2022,02/25/2021,02/27/2020 Influenza injectable quadriv alent IIV4 with preservative 02/20/2019,02/21/2018 Influenza, IIV3, injectable 03/30/2011 MMR 06/12/2001 TD (adult), 2 Lf tetanus tox oid, preservative free, adsorbed 07/27/2001 Tdap 06/15/2022,04/20/2012 Zoster, live 01/08/2019 Family History Medical History Relation Name Comments htn Father Breast cancer Mother per garcía Maloney did not have breast cancer Arthritis Sister Relation Name Status Comments Father Mother Sister Social History Tobacco Use Types Packs/Day Years Used Date Smoking Tobacco: Never Passive Smoke Exposure: Never Smokeless Tobacco: Never Tobacco Cessation:Counseling Given: Not Answered Alcohol Use Standard Drinks/Week Comments Never 0 [...] not to disclose 2021 10:16 AM EDT Last Filed Vital Signs Vital Sign Reading Time Taken Comments Blood Pressure 118/68 12/05/2024 10:10 AM EDT Pulse 80 12/05/2024 10:10 AM EDT Temperature 36.4 C (97.5 F) 12/05/2024 10:10 AM EDT Respiratory Rate 12 12/05/2024 10:10 AM EDT Oxygen Saturation 98% 05/21/2024 1:02 PM EST Inhaled Oxygen Concentration - - Weight 58.7 kg (129 lb 6 oz) 12/05/2024 10:10 AM EDT Height 152.4 cm (5') 12/05/2024 10:10 AM EDT Body Mass Index 25.27 12/05/2024 10:10 AM EDT Plan of Treatment Upcoming Encounters Date Type Department Care Team (Late st Contact Info) Description 02/18/2025 9:00 AM EDT Office Visit [facility] [address] [place] [address] Rodrigo Lou MD [address] [place] [address] Health Maintenance Due Date Last Done Comments CT Colonography 1967 FIT DNA/Cologuard 1967 FIT 1967 FOBT 1967 HIV Screening 1967 Sigmoidoscopy 1967 Pneumococcal Vaccine: 50+ Years (1 of 2 - PCV) 1986 Zoster Vaccines (2 of 3) 03/05/2019 01/08/2019 Dental Oral Exam 02/14/2021 08/13/2020, , 12/31/2018, Additional history exists Dental X-Ray: Bitewings 08/14/2021 08/14/19 21, 12/31/2018, 01/05/2018, Additional history exists Dental X-Ray: Full Mouth 08/15/2023 08/13/2020, 08/11 COVID-19 Vaccine ( season) 2024 05/11/2021, 07/07/2020, 06/09/2020 Influenza Vaccine (#1) 2025 2, 02/25/2021, 02/27/2020, Additional history exists Mammogram 04/29/2025 04/29/2024 Dental Prophylaxis 05/05/2025 11/01/2024, 0 08/13/2020, 07/03/2019, Additional history exists Alcohol/Substance Use Screening 12/05/2025 12/05/2024 Depression Screening 12/05/2025 12/05/2024, 12/06/19 25 Disability Screening 12/05/2025 12/05/2024 SDOH Screening 12/05/2025 12/05/2024 Tobacco Screening 12/05/2025 12/05/2024 Pap Smear 02/15/2026 02/15/2023 Cervical Cancer Screening 02/16/2028 HPV/Cotest 02/16/2028 02/15/2023 Colonoscopy 03/19/2031 03/19/2021, 03/19/2021 Colorectal Cancer Screening 03/19/2031 DTaP/Tdap/Td Vaccines (3 - Td or Tdap) 06/15/2032 06/15/2022, 04/20/2012, 07/27/2001 RSV Patients and Patients Aged 60 years or older (1 - 1-dose 75+ series) 2042 Hepatitis B Vaccines Discontinued 06/12/2001 Hepatitis C Screening Completed 12/04/2024 HIB Vaccines Aged Out No longer eligi ble based on patient's age to complete this topic HPV Vaccines Aged Out No longer eligi ble based on patient's age to complete this topic Hepatitis A Vaccines Aged Out No long er eligible based on patient's age to complete this topic IPV Vaccines Aged Out No longer eligi ble based on patient's age to complete this topic Meningococcal B Vaccine Aged Out No l onger eligible based on patient's age to complete this topic Meningococcal Vaccine Aged Out No rigoberto berny eligible based on patient's age to complete this topic RSV under 20 months Aged Out No longe r eligible based on patient's age to complete this topic Rotavirus Vaccines Aged Out No longer eligible based on patient's age to complete this topic Procedures Procedure Name Priority Date/Time Associated Diagnosis Comments VITAMIN D,25-OH,TOTAL,IA Routine 12/04/2024 9:28 AM EDT Primary osteoarthritis of both knees LIPID PANEL WITH REFLEX TO DIRECT LDL Routine 12/04/2024 9:28 AM EDT Menopause syndrome TSH W/REFLEX TO FT4 Routine 12/04/2024 9 :28 AM EDT Anxiety Primary osteoarthritis of both knees HEPATITIS PANEL, GENERAL Routine 12/04/2024 9:28 AM EDT Primary osteoarthritis of both knees CBC WITH AUTO DIFFERENTIAL Routine 12/04/2024 9:28 AM EDT Primary osteoarthritis of both knees URIC ACID Routine 12/04/2024 9:28 AM EDT Primary osteoarthritis of both knees RHEUMATOID FACTOR Routine 12/04/2024 9:2 8 AM EDT Primary osteoarthritis of both knees C-REACTIVE PROTEIN Routine 12/04/2024 9: 28 AM EDT Primary osteoarthritis of both knees SED RATE BY MODIFIED WESTERGREN Routine 12/04/2024 9:28 AM EDT Primary osteoarthritis of both knees RODRIGO SCREEN, IFA, W/REFL TITER AND PATTERN Routine 12/04/2024 9:28 AM EDT Primary osteoarthritis of both knees XR HIP 2 OR 3 VIEWS RIGHT Routine 11/27/2024 1:10 PM EDT Inflammation of sacroiliac joint (CMS/HCC) HM PAP/HPV Routine 02/15/2023 HM COLONOSCOPY Routine 03/19/2021 7:46 AM EDT PROPHYLAXIS - ADULT Routine 08/13/2020 1 2:00 AM EST INTRAORAL - COMPLETE SERIES OF RADIOGRAPHIC IMAGES Routine 08/13/2020 12:00 AM EST PERIODIC ORAL EVALUATION - ESTABLISHED PATIENT Routine 08/13/2020 12:00 AM EST from Last 3 Months or Most Recently Relevant to Health Maintenance Results * (ABNORMAL) Vitamin D, 25-Hydroxy, Total, Immunoassay (12/04/2024 9:28 AM EDT) Vitamin D 25-OH Total 29.3(L) >30 ng/mL [facility] Comment: Health Based Reference Values*< 20 ng/mL Bocmqyavo14-25 ng/mL Insufficient> 30 ng/mL Sufficient*Coy HERNANDEZ. N Engl J Med. 2007;357:266-280There is no well-established upper level of normal vitamin Dlevels. Some laboratories use 50 ng/mL as an upper limit ofnormal. However, toxicity is patient-dependent and may occurat any level. Careful correlation with the patient'spresentation is necessary and, if there is concern forvitamin D toxicity, treatment should be consideredirrespective of the serum level.Care must be taken in interpreting Vitamin D results fromdifferent laboratories and methodologies. Published datademonstrated that results from patients undergoinghemodialysis may show a negative bias when tested withvarious automated 25-OH vitamin D assays when compared toLC-MS/MS.When testing samples from patients whose predominant form ofVitamin D is Vitamin D2, such as patients receiving VitaminD2 supplementation, results that are subtherapeutic shouldbe confirmed with another method such as LC-MS/MS. Blood 12/04/2024 9:28 AM EDT 12/04/2024 9:28 AM EDT us Rodrigo Lou MD LAB BLOOD ORDERABLES Fin al Result [facility] [address] [place] [phone] * TSH with Reflex to Free T4 (12/04/2024 9:28 AM EDT) TSH reflex Free T4 3.23 0.32 - 4.0 uIU/mL [facility] Blood 12/04/2024 9:28 AM EDT 12/04/2024 9:28 AM EDT Rodrigo Lou MD LAB BLOOD ORDERABLES Fin al Result Performing Organization Address [facility] Co de Phone Number [facility] [address] [place] [phone] * (ABNORMAL) Lipid Panel with Reflex to Direct LDL (12/04/2024 9:28 AM EDT) Triglycerides 46 <150 mg/dL [facility] Comment:Desirable Triglyceri de: less than 150 mg/dLBorderline High Triglyceride 150-199 mg/dLHigh Triglyceride: 200-499 mg/dLVery High Triglyceride: greater than or equal to 5OO mg/dL Cholesterol 213(H) <200 mg/dL [facility] Comment:Desirable Cholestero l: less than 200 mg/dLBorderline High Cholesterol: 200-239 mg/dLHigh Cholesterol: greater than 239 mg/dL LDL Cholesterol Calculated 121(H) <100 mg/dL [facility] Comment:Desirable LDL: less than 100 mg/dLNear Optimal/Above Optimal LDL: 110- 129 mg/dLBorderline High LDL: 130-159 mg/dLHigh LDL: 160-189 mg/dLVery High LDL: greater than or equal to 190 mg/dL HDL Cholesterol 83 >40 mg/dL [facility] Comment:Desirable HDL: great er than 40 mg/dL Note: This HDL assay may give artificially low results in patients with liver disease. Blood 12/04/2024 9:28 AM EDT 12/04/2024 9:28 AM EDT us Rodrigo Lou MD LAB BLOOD ORDERABLES Fin al Result Performing Organization Address [facility]/ZIP Co de Phone Number [facility] [address] [place] [address] [phone] * Hepatitis Panel, General (12/04/2024 9:28 AM EDT) Hepatitis A IgM Nonreactive Nonreactive [facility] Comment:IgM antibodies to MCDUFFIE V not detected; does not exclude earlyacute or recovered HAV infection. ~Hepatitis B Surface Antibody REACTIVE Nonreactive [facility] Comment:REACTIVE: > 11.99 mI U/mL Hepatitis B Core Antibody Nonreactive Nonreactive [facility] Hepatitis C Antibody Nonreactive Nonreactive [facility] Comment:Antibodies to HCV no t detected; does not exclude early acuteHCV infection. Hepatitis B Surface Ag Negative Negative [facility] Blood 12/04/2024 9:28 AM EDT 12/04/2024 9:28 AM EDT us Rodrigo Lou MD LAB BLOOD ORDERABLES Fin al Result [facility] [address] [place], [place] [phone] * CBC auto differential (12/04/2024 9:28 AM EDT) White Blood Count 4.8 4.8 - 10.8 X10*3/uL [facility] Red Blood Count 4.38 4.20 - 5.50 X10*6/uL [facility] Hemoglobin 13.2 12.0 - 16.0 g/dl [facility] Hematocrit 40.2 37.0 - 47.0 % [facility] Mean Corpuscular Volume 91.8 80.0 - 98.0 fL [facility] Mean Corpuscular Hemoglobin 30.1 27.0 - 33.0 pg [facility] Mean Corpuscular HGB Conc 32.8 31.0 - 35.0 g/dl [facility] Red Cell Distribution Width 14.2 11.0 - 16.0 % [facility] Platelet Count 204 160 - 400 X10*3/uL [facility] Mean Platelet Volume 10.3 9.4 - 12.3 fL [facility] Neutrophils Percent Auto 53.3 45 - 73 % [facility] Imm Gran Pct Auto 0.4 0.0 - 0.4 % [facility] Lymphocytes Percent Auto 34.9 20 - 40 % [facility] Monocytes Percent Auto 6.1 2 - 11 % [facility] Eosinophils Percent Auto 3.6 0 - 4 % [facility] Basophils Percent Auto 1.7 0 - 2 % [facility] NRBC Pct Auto 0.0 0.0 - 0.2 /100WBC [facility] Neutrophils Absolute Auto 2.5 2.0 - 8.3 x10*3/uL [facility] Imm Gran Abs Auto 0.02 0.00 - 0.03 X10*3/uL [facility] Lymphocytes Absolute Auto 1.7 1.2 - 4.9 X10*3/uL [facility] Monocytes Absolute Auto 0.3 0.1 - 1.2 X10*3/uL [facility] Eosinophils Absolute Auto 0.2 0.0 - 0.4 X10*3/uL [facility] Basophils Absolute Auto 0.1 0.0 - 0.2 X10*3/uL [facility] NRBC Abs Auto 0.000 0.0 - 0.012 X10*3/uL [facility] Blood Venous blood specimen / Unknown 12/04/2024 9:28 AM EDT 12/04/2024 9:28 AM EDT us Rodrigo Lou MD LAB BLOOD ORDERABLES Fin al Result Performing Organization Address [facility] Co de Phone Number [facility] [address] [place] [phone] * Sed Rate by Modified Jenniferren (12/04/2024 9:28 AM EDT) Erythrocyte Sedimentation Rate 9 0 - 20 MM/HR [facility] Comment:Patients with polycy themia and many hemoglobin abnormalitiesmay have depressed sed rates whereas patients with anemiamay have elevated sed rates. Blood Venous blood specimen / Unknown 12/04/2024 9:28 AM EDT 12/04/2024 9:28 AM EDT us Rodrigo Lou MD LAB BLOOD ORDERABLES Fin al Result Performing Organization Address City/[facility]/ZIP Co de Phone Number [facility] [address] [place] [phone] * Rheumatoid Factor (12/04/2024 9:28 AM EDT) Pathologist [facility] Rheumatoid Factor <13.0 <15.0 IU/mL [facility] Blood Venous blood specimen / Unknown 12/04/2024 9:28 AM EDT 12/04/2024 9:28 AM EDT Rodrigo Lou MD LAB BLOOD ORDERABLES Fin al Result Performing Organization Address [facility]/ZIP Co de Phone Number [facility] [address] [place] [address] [phone] * C-reactive Protein (12/04/2024 9:28 AM EDT) [facility] C Reactive Protein 0.46 < or = 0.50 mg/dL [facility] Blood Venous blood specimen / Unknown 12/04/2024 9:28 AM EDT 12/04/2024 9:28 AM EDT Rodrigo Lou MD LAB BLOOD ORDERABLES Fin al Result Performing Organization Address [facility] Co de Phone Number [facility] [address] [place] [address] [phone] * RODRIGO Screen,IFA, with Reflex to Titer and Pattern (12/04/2024 9:28 AM EDT) [facility] Anti Nuclear Antibody Screen NEGATIVE NEGATIVE [facility] Comment:RODRIGO IFA is a first l ine screen for detecting thepresence of up to approximately 150 autoantibodies invarious autoimmune diseases. A negative RODRIGO IFA resultsuggests an RODRIGO-associated autoimmune disease is notpresent at this time, but is not definitive. If thereis high clinical suspicion for Sjogren's syndrome,testing for anti-SS-A/Ro antibody should be considered.Anti-Ashley-1 antibody should be considered for clinicallysuspected inflammatory myopathies.AC-0: NegativeInternational Consensus on RODRIGO Patterns(https://doi.org/10.1515/nwdr-7180-4351)For additional information, please refer tohttp://education.Zorap/faq/YRC922(This link is being provided for informational/educational purposes only.)THIS TEST WAS PERFORMED AT:[employer] [address] [id number] VIGIL MD RODRIGO Titer TNP [facility] RODRIGO Pattern TNP [facility] RODRIGO TITER 2 (REF LAB) [facility] 2 [facility] ROD[facility] TITER 3 [facility] ROD[facility]IGO PATTERN 3 [facility] Blood Venous blood specimen / Unknown 12/04/2024 9:28 AM EDT 12/04/2024 9:28 AM EDT Rodrigo Lou MD LAB BLOOD ORDERABLES Fin al Result Performing Organization Address City/[facility]/ZIP Co de Phone Number [facility] [address] [place] [phone] * Uric acid (12/04/2024 9:28 AM EDT) Uric Acid 4.2 2.4 - 5.7 mg/dL [facility] Blood Venous blood specimen / Unknown 12/04/2024 9:28 AM EDT 12/04/2024 9:28 AM EDT Rodrigo Lou MD LAB BLOOD ORDERABLES Fin al Result Performing Organization Address [facility]/ZIP Co de Phone Number [facility] [address] [place] [phone] * XR Hip 2 or 3 Views Right (11/27/2024 1:10 PM EDT) Anatomical Region Laterality Modality Lower Extremities, Hip Right Radiograp hic Imaging 11/27/2024 1:10 PM EDT Narrative 11/27/2024 2:03 PM EDT [address] [address] XRay Report Signed Patient: Rodrigo Kennedy MR#: [id number] : 1965 Acct:[id number] Age/Sex: 59 / F ADM Date: 11/27/24 Loc: HO.DEJUANAY Attending Dr: Rodrigo Lou MD Ordering Physician: Rodrigo Lou MD Date of Service: 11/27/24 Procedure(s): XR hip RT min 2V Accession Number(s): [id number] cc: Rodrigo Lou MD EXAMINATION: XR HIP, RIGHT CLINICAL INFORMATION: right hip pain COMPARISON: None available. TECHNIQUE: Two views of the right hip. FINDINGS: No fracture. Alignment is anatomic. Hip joint space is maintained. Soft tissues are unremarkable. XR/XR hip RT min 2V IMPRESSION: Normal right hip. Electronically signed by: Dante Hagan MD 11/27/2024 02:00 PM EDT Dictated By: Dante Hagan MD Signed By: <Electronically signed by Dante Hagan MD in OV> 11/27/24 1400 DD/ 1310 TD/TT: 11/27/24 1323 Pathology Collector: Procedure Note Donotuseinterpreter, Image - 11/27/[address] [address] XRay Report Signed Patient: Rodrigo Kennedy LMR#: [id number] : 1965Acct:[id number] Age/Sex: 59 / FADM Date: 11/27/24 Loc: HOALISIA Attending Dr: Rodrigo Lou MD Ordering Physician: Rodrigo Lou MD Date of Service: 11/27/24 Procedure(s): XR hip RT min 2V Accession Number(s): [id number] cc: Rodrigo Lou MD EXAMINATION: XR HIP, RIGHT CLINICAL INFORMATION: right hip pain COMPARISON: None available. TECHNIQUE: Two views of the right hip. FINDINGS: No fracture. Alignment is anatomic. Hip joint space is maintained. Soft tissues are unremarkable. XR/XR hip RT min 2V IMPRESSION: Normal right hip. Electronically signed by: Dante Hagan MD 11/27/2024 02:00 PM EDT RP Dictated By: Dante Hagan MD Signed By: <Electronically signed by Dante Hagan MD in OV> 11/27/24 1400 DD/ 1310 TD/TT: 11/27/24 1323 Pathology Collector: Rodrigo Lou MD IMG XR PROCEDURES Final Result * Pap Smear (02/15/2023) Pap Negative for intraephithelial lesion or malignancy Negative for intraephithelial lesion or malignancy, Other HPV Not Detected Undetected, Indeterminate, Quantitative, Not Detected Historical Provider HEALTH MAINTENANCE Final Result * Colonoscopy (03/19/2021 7:46 AM EDT) Historical Provider HEALTH MAINTENANCE Final Result from Last 3 Months or Most Recently Relevant to Health Maintenance Insurance [facility] , [address] [place] [address] Care Teams Tire Rebuilder Relationship Specialty Start Date End Date Rodrigo Lou MD [address] [place] [phone] PCP - General Family Medicine 03/14/16
--- OUTSIDE RECORDS SUMMARY | 2025-02-05 15:28 | XMS_ITS | Encounter Summary ---
Author Organization [employer] Address [address] [facility] 7 [place] [address] Care Team Providers Care Laser Systems Engineer Name Role Phone Amara Lou MD Primary Care Provider + Encounter Details Date Type Department Care Team (Late st Contact Info) Description 05/04/2022 Abstract [facility] ADULT DENTAL [address] [place] [address] Dental, Provider, DDS Social History Tobacco Use [...] Description 02/18/2025 9:00 AM EDT Office Visit [facility] MEDICINE [address] [place] [address] Amara Lou MD [address] [place] [address] documented as of this encounter Procedures Procedure Name Priority Date/Time Associated Diagnosis Comments 19 PREFABRICATED POST AND CORE IN ADDITION TO CROWN Routine 05/04/2022 12:00 AM EST 3 PREFABRICATED POST AND CORE IN ADDITION TO CROWN Routine 05/04/2022 12:00 AM EST 4 MOD COMPOSITE FILLING Routine 11/23/20 22 12:00 AM EST 5 DO COMPOSITE FILLING Routine 2 12:00 AM EST 7 L COMPOSITE FILLING Routine 05/04/2022 12:00 AM EST 10 L COMPOSITE FILLING Routine 2 12:00 AM EST 12 DO COMPOSITE FILLING Routine 05/04/20 12:00 AM EST 13 MO COMPOSITE FILLING Routine 05/04/20 12:00 AM EST 14 DOL COMPOSITE FILLING Routine 022 12:00 AM EST 18 B COMPOSITE FILLING Routine 2 12:00 AM EST 21 O COMPOSITE FILLING Routine 2 12:00 AM EST 20 DO COMPOSITE FILLING Routine 05/04/20 12:00 AM EST 28 O COMPOSITE FILLING Routine 2 12:00 AM EST 29 DO COMPOSITE FILLING Routine 05/04/20 12:00 AM EST 31 B COMPOSITE FILLING Routine 2 12:00 AM EST 31 MO AMALGAM FILLING Routine 05/04/2022 12:00 AM EST 18 MO AMALGAM FILLING Routine 05/04/2022 12:00 AM EST 15 MOL AMALGAM FILLING Routine 2 12:00 AM EST 2 MOL AMALGAM FILLING Routine 05/04/2022 12:00 AM EST 32 EXTRACTION Routine 05/04/2022 12:00 AM EST 17 EXTRACTION Routine 05/04/2022 12:00 AM EST 16 EXTRACTION Routine 05/04/2022 12:00 AM EST 1 EXTRACTION Routine 05/04/2022 12:00 AM EST 19 ROOT CANAL Routine 05/04/2022 12:00 AM EST 3 ROOT CANAL Routine 05/04/2022 12:00 AM EST 30 PFM CROWN Routine 05/04/2022 12:00 AM EST 19 PFM CROWN Routine 05/04/2022 12:00 AM EST 3 PFM CROWN Routine 05/04/2022 12:00 AM EST documented in this encounter Visit Diagnoses Not on filedocumented in this encounter Care Teams Laser Systems Engineer Relationship Specialty Start Date End Date Amara Lou MD [address] [place] [phone] PCP - General Family Medicine 03/14/16 documented as of this encounter
--- OUTSIDE RECORDS SUMMARY | 2025-02-05 15:28 | XMS_ITS | Encounter Summary ---
Author Organization [employer] Address [address] [facility] [address] 7[address] [place] [address] Care Team Providers Care Professor Of Communication And Writing Name Role Phone Amara Lou MD Primary Care Provider + Encounter Details Date Type Department Care Team ([facility] st Contact Info) Description 11/08/2023 Orders Only [facility] MEDICINE [address] [place] [address] ProviderAnastasiya MD Social History Tobacco Use Types Packs/Day Years [...] Description 02/18/2025 9:00 AM EDT Office Visit [facility] MEDICINE [address] [place] [address] Amara Lou MD [address] [place] [address] documented as of this encounter Procedures Procedure Name Priority Date/Time Associated Diagnosis Comments COLONOSCOPY Routine 03/19/2021 7:48 AM EDT documented in this encounter Results * Hm Colonoscopy (03/19/2021 7:48 AM EDT) Historical Provider HEALTH MAINTENANCE Final Result documented in this encounter Visit Diagnoses Not on filedocumented in this encounter Care Teams Professor Of Communication And Writing Relationship Specialty Start Date End Date Amara Lou MD [address] [place] [phone] PCP - General Family Medicine 03/14/16 documented as of this encounter
--- OUTSIDE RECORDS SUMMARY | 2025-02-05 15:28 | XMS_ITS | Encounter Summary ---
Author Organization [employer] Address [address] [facility] 7t [place] [address] Care Team Providers Care Acoustical Installer Name Role Phone Amara Lou MD Primary Care Provider + Reason for Visit * Reason Comments Med Refill Encounter Details Date Type Department Care Team ([facility] st Contact Info) Description 06/03/[address] [facility] MEDICINE [address] [place], [place] [phone] Teri Kat CN [address] [place] [address] Social History Tobacco Use Types Packs/Day Years Used Date Smoking Tobacco: Never Smokeless Tobacco: Never Alcohol Use Standard Drinks/Week Comments Never 0 (1 standard drink = 0.6 oz pur e alcohol) Housing Stability Answer Date Recorded What is your housing situation today? I have sharla cole 11/30/[address] you li ve. Do you have problems with any of the following? None of the above 11/30/2023 Food Insecurity Answer Date Recorded Within the past 12 months, y ou worried that your food would run out before you got money to buy more: Never True 11/30/2023 Within the past 12 months,th e food you bought just didn't last and you didn't have enough money to get more: Never True Transportation Answer Date Recorded In the past 12 months, has l ack of transportation kept you from medical appts, meetings, work or from getting things needed for daily living? No 11/30/2023 Utilities Answer Date Recorded In the past 12 months, has t he electric, gas, oil or water company threatened to shut off services in your home? No 11/30/2023 Depression Answer Date Recorded Patient Health Questionnaire-2 Score 0 11/30/2023 Internet Access Answer Date Recorded Internet Access Q1 No 02/12/2024 Internet Access Q2 I do not want or need it 07/2023 Comments No Sex and Gender Information Value Date Recorded Sex Assigned at Female 04/11/2022 10:16 AM EDT Legal Sex Female 10:16 AM EDT Gender Identity Female 04/11/2022 10:16 AM EDT Sexual Orientation Choose not to disclose 2021 10:16 AM EDT documented as of this encounter Miscellaneous Notes * Telephone Encounter - Teri Kat CNM - 06/03/2024 2:18 PM EST She and I decided to discontinue patch at last visit. documented in this encounter Plan of Treatment Upcoming Encounters Date Type Department Care Team (Late st Contact Info) Description 02/18/2025 9:00 AM EDT Office Visit [facility] MEDICINE [address] [place] [address] Amara Lou MD [address] [place] [address] documented as of this encounter Visit Diagnoses Not on filedocumented in this encounter Care Teams Acoustical Installer Relationship Specialty Start Date End Date Amara Lou MD [address] [place] [phone] PCP - General Family Medicine 03/14/16 documented as of this encounter
== END 2025-02-05 15:45 | disposition home or self-care (01) ==
LOC: HO.HGI 14:28
PROVIDERS: PCP Internal Medicine; Visit Provider Internal Medicine
DX: R10.13 Epigastric pain (principal); R14.0 Abdominal distension (gaseous); Z90.3 Acquired absence of stomach [part of]
CPT/HCPCS: 99204; G2211

== ENCOUNTER 2025-02-12 14:03 | Outpatient (REF) | payer OTHER, SELFPAY ==
--- OUTSIDE RECORDS SUMMARY | 2025-02-12 16:20 | XMS_ITS | Encounter Summary ---
Author Organization [employer] Address [address] [facility] 7 [place] [address] Care Team Providers Care Headstart Teacher Name Role Phone Amara Lou MD Primary Care Provider + Encounter Details Date Type Department Care Team (Latest Contact Info) Description 07/03/2019 Abstract [facility] CONVERSIONS Dental, Provider, DDS Social History [...] Description 02/18/2025 9:00 AM EDT Office Visit [facility] MEDICINE [address] [place] [address] Amara Lou MD [address] [place] [address] documented as of this encounter Visit Diagnoses Not on filedocumented in this encounter Care Teams Headstart Teacher Relationship Specialty Start Date End Date Amara Lou MD [address] [place] [phone] PCP - General Family Medicine 03/14/16 documented as of this encounter
--- OUTSIDE RECORDS SUMMARY | 2025-02-12 16:20 | XMS_ITS | Encounter Summary ---
Author Organization [employer] Address [address] [facility] 7 [place] [address] Care Team Providers Care Hand Compositor Name Role Phone Amara Lou MD Primary Care Provider + Encounter Details Date Type Department Care Team (Latest Contact Info) Description 08/13/2020 Abstract [facility] CONVERSIONS Dental, Provider, DDS Social History [...] Description 02/18/2025 9:00 AM EDT Office Visit [facility] MEDICINE [address] [place] [address] Amara Lou MD [address] [place] [address] documented as of this encounter Visit Diagnoses Not on filedocumented in this encounter Care Teams Hand Compositor Relationship Specialty Start Date End Date Amara Lou MD [address] [place] [address] PCP - General Family Medicine 03/14/16 documented as of this encounter
--- OUTSIDE RECORDS SUMMARY | 2025-02-12 16:20 | XMS_ITS | Encounter Summary ---
Author Organization [employer] Address [address] [facility] [address] 7t [place] [address] Care Team Providers Care Dental Assistant Name Role Phone Amara Lou MD Primary Care Provider + Encounter Details Date Type Department Care Team ([facility] st Contact Info) Description 11/08/2023 Orders Only [facility] MEDICINE [address] [place] [address] ProviderAnastasiya MD Social History Tobacco Use Types [...] 9:00 AM EDT Office Visit [facility] MEDICINE [address] [place] [address] Amara Lou MD [address] [place] [address] documented as of this encounter Procedures Procedure Name Priority Date/Time Associated Diagnosis Comments COLONOSCOPY Routine 03/19/2021 7:48 AM EDT documented in this encounter Results * Hm Colonoscopy (03/19/2021 7:48 AM EDT) Historical Provider HEALTH MAINTENANCE Final Result documented in this encounter Visit Diagnoses Not on filedocumented in this encounter Care Teams Dental Assistant Relationship Specialty Start Date End Date Amara Lou MD [address] [place] [phone] PCP - General Family Medicine 03/14/16 documented as of this encounter
--- OUTSIDE RECORDS SUMMARY | 2025-02-12 16:20 | XMS_ITS | Encounter Summary ---
Author Organization [employer] Address [address] [facility] 7t [place] [address] Care Team Providers Care Railroad Police Officer Name Role Phone Amara Lou MD Primary Care Provider + Reason for Visit * Reason Comments Med Refill Encounter Details Date Type Department Care Team ([facility] st Contact Info) Description 06/03/[address] [facility] MEDICINE [address] [place], [place] [phone] Teri Kat CN [address] [place] [address] Social History Tobacco Use Types Packs/Day Years Used Date Smoking Tobacco: Never Smokeless Tobacco: Never Alcohol Use Standard Drinks/Week Comments Never 0 (1 standard drink = 0.6 oz pur e alcohol) Housing Stability Answer Date Recorded What is your housing situation today? I have hsarla cole 11/30/[address] you [...] Description 02/18/2025 9:00 AM EDT Office Visit [facility] MEDICINE [address] [place] [address] Amara Lou MD [address] [place] [address] documented as of this encounter Visit Diagnoses Not on filedocumented in this encounter Care Teams Railroad Police Officer Relationship Specialty Start Date End Date Amara Lou MD [address] [place] [phone] PCP - General Family Medicine 03/14/16 documented as of this encounter
--- OUTSIDE RECORDS SUMMARY | 2025-02-12 16:20 | XMS_ITS | Encounter Summary ---
Author Organization [employer] Address [address] [facility] [address] 7[address] [place] [address] Care Team Providers Care Rodding Machine Tender Name Role Phone Amara Lou MD Primary Care Provider + Reason for Visit * Reason Comments Med Refill Encounter Details Date Type Department Care Team ([facility] st Contact Info) Description 09/06/2023 Refill [facility] OPTOMETRY [address] [place], [place] [phone] Garrett, Jaqueline, OD [address] [place] [address] Social History Tobacco Use Types Packs/Day Years [...] AM EDT Office Visit [facility] MEDICINE [address] [place] [address] [phone] Amara Lou MD [address] [place] [phone] documented as of this encounter Visit Diagnoses Not on filedocumented in this encounter Care Teams Rodding Machine Tender Relationship Specialty Start Date End Date Amara Lou MD [address] [place] [address] [phone] PCP - General Family Medicine 03/14/16 documented as of this encounter
--- OUTSIDE RECORDS SUMMARY | 2025-02-12 16:20 | XMS_ITS | Encounter Summary ---
Author Organization [employer] Address [address] [facility] 7 [place] [address] Care Team Providers Care Mophead Trimmer And Wrapper Name Role Phone Amara Lou MD Primary Care Provider + Encounter Details Date Type Department Care Team (Late st Contact Info) Description 05/04/2022 Abstract [facility] ADULT DENTAL [address] [place] [address] Dental, Provider, DDS Social History Tobacco Use [...] Description 02/18/2025 9:00 AM EDT Office Visit [facility] MEDICINE [address] [place] [address] Amara Lou MD [address] [place] [address] documented as of this encounter Procedures Procedure [...] on filedocumented in this encounter Care Teams Mophead Trimmer And Wrapper Relationship Specialty Start Date End Date Amara Lou MD [address] [place] [phone] PCP - General Family Medicine 03/14/16 documented as of this encounter
--- OUTSIDE RECORDS SUMMARY | 2025-02-12 16:20 | XMS_ITS | Encounter Summary ---
Author Organization [employer] Address [address] [facility] 7 [place] [address] Care Team Providers Care Gas Technician Name Role Phone Amara Lou MD Primary Care Provider + Reason for Visit * Reason Comments Med Refill Encounter Details Date Type Department Care Team ([facility] Contact Info) Description 12/23/2022 Refill [facility] MEDICINE [address] [place], [place] [phone] Amara Lou MD [address] [place] [address] Vertigo Social History Tobacco Use Types Packs/Day [...] Upcoming Encounters Date Type Department Care Team ([facility] Contact Info) Description 02/18/2025 9:00 AM EDT Office Visit [facility] MED[facility]INE [address] [place] [address] Amara Lou MD [address] [place] [address] documented as of this encounter Visit Diagnoses Diagnosis Vertigo Dizziness and giddiness documented in this encounter Care Teams Gas Technician Relationship Specialty Start Date End Date Amara Lou MD [address] [place] [phone] PCP - General Family Medicine 03/14/16 documented as of this encounter
--- OUTSIDE RECORDS SUMMARY | 2025-02-12 16:20 | XMS_ITS | Encounter Summary ---
Author Organization [employer] Address [address] [facility] 7 [place] [address] Care Team Providers Care Knitting Machine Operator Helper Name Role Phone Amara Lou MD Primary Care Provider + Reason for Visit * Reason Comments Med Refill Encounter Details Date Type Department Care Team (Late st Contact Info) Description 11/04/2022 Refill [facility] MEDICINE [address] [place] [address] [phone] Amara Lou MD [address] [place] [address] [phone] Vertigo Social History Tobacco Use Types Packs/Day [...] Description 02/18/2025 9:00 AM EDT Office Visit [facility] MEDICINE [address] [place] [address] [phone] Amara Lou MD [address] [place] [address] [phone] documented as of this encounter Visit Diagnoses Diagnosis Vertigo Dizziness and giddiness documented in this encounter Care Teams Knitting Machine Operator Helper Relationship Specialty Start Date End Date Amara Lou MD [address] [place] [phone] PCP - General Family Medicine 03/14/16 documented as of this encounter
--- OUTSIDE RECORDS SUMMARY | 2025-02-12 16:20 | XMS_ITS | Encounter Summary ---
Author Organization [employer] Address 75 [facility] 7 [place] [address] Care Team Providers Care Vehicle Leasing And Rental Manager Name Role Phone Amara Lou MD Primary Care Provider + Encounter Details Date Type Department Care Team (Latest Contact Info) Description 06/19/2018 Abstract [facility] CONVERSIONS Dental, Provider, DDS Social History [...] Description 02/18/2025 9:00 AM EDT Office Visit [facility] [address] [place] [address] Amara Lou MD [address] [place] [address] documented as of this encounter Visit Diagnoses Not on filedocumented in this encounter Care Teams Vehicle Leasing And Rental Manager Relationship Specialty Start Date End Date Amara Lou MD [address] [place] [address] PCP - General Family Medicine 03/14/16 documented as of this encounter
--- OUTSIDE RECORDS SUMMARY | 2025-02-12 16:20 | XMS_ITS | Clinical Summary ---
Author Organization [employer] Address 75 [facility] 7t [place] [address] Care Team Providers Care Solid Waste Collection Worker Name Role Phone Amara Lou MD Primary Care Provider + Allergies Active Allergy Reactions Criticality Noted Date Comments Clarithromycin High 08/28/2014 Monosodium Glutamate 07/21/2017 [place] Oil 08/13/2020 Tilactase 08/13/2020 Medications albuterol (ProAir HFA) 108 (90 Base) MCG/ACT inhaler Inhale 2 puffs every 4 (four) hours if needed. 0 Active zoster vaccine, live, (Zostavax) 87964 UNT/0.65ML injection inject 0.65 milliliter by subcutaneous route once 9 Active estradiol (Estrace) 0.1 MG/GM vaginal creamIndicatio ns:Perimenopau se 0.5g daily x 1 week then 0.5g intravaginally three times per week for 2 weeks then 0.5g intravaginally BIW thereafter 42.5 g 2 3 Active azelastine (Astelin) 0.1 % nasal spray Administer 1 spray into each nostril at bedtime. Use in each nostril as directed 30 mL 4 Active meclizine (Antivert) 12.5 MG tablet TAKE 1 TABLET BY MOUTH THREE TIMES DAILY NEEDED FOR DIZZINESS 90 tablet 1 5 Active meloxicam (Mobic) 15 MG tablet Take 1 tablet (15 mg) by mouth Once per day. 30 tablet 5 026 Active betamethasone valerate (Valisone) 0.1 % cream Apply topically if needed in the morning and at bedtime (dryness). 45 g 2 5 Active pantoprazole (ProtoNix) 40 MG EC tablet TAKE 1 TABLET BY MOUTH EVERY DAY BEFORE BREAKFAST. DO NOT BREAK, CRUSH, DISSOLVE OR CHEW. 90 tablet 1 5 Active escitalopram (Lexapro) 5 MG tablet Take 1 tablet (5 mg) by mouth Once per day. 90 tablet 1 5 025 Active Active Problems Problem Noted Date Diagnosed Date [...] have breast cancer) and also verified with CHEMICAL COMPOUNDER if her breast lesions are not a contraindication for HRT (I believe they are not, but according to patient they told her there are premalignant lesions?). She will continue on vaginal estrogen cream for dyspareunia I will refer her to pelvic floor physical therapy at the [address] [place] [address] in [place] I will treat anxiety and follow-up with her in 6 weeks Assessment & Plan (01/08/2024 10:23 AM EDT): On estrogen cream by CHEMICAL COMPOUNDER Advised to discuss systemic HRT instead due [...] exacerbation of arthralgias. Advised to discuss with CHEMICAL COMPOUNDER re oral HRT, has ? Hx breast [...] up to date, obtain last report from [facility] CHEMICAL COMPOUNDER Mammogram: Reportedly up to date[facility] test: N/A, due at age 67 Eye exam: Up to date, next one due on 11/2024 CRC screen: Obtain report form [facility] and fu at next appt Lipids/FBS: TBO [...] of? Breast cancer, she should follow-up with CHEMICAL COMPOUNDER Primary osteoarthritis of both knees 05/04/2022 Assessment [...] improve with HRT she will fu with CHEMICAL COMPOUNDER Assessment & Plan (11/24/2022 2:53 PM EDT): [...] make sure that there is no other CHEMICAL COMPOUNDER pathology before I start HRT. She agreed with the POC. We will try to obtain 2021 pap smear and mammorgam from [facility], pt has appointment with CHEMICAL COMPOUNDER in February. FU in 2mo Assessment & Plan (11/24/2022 3:04 PM EDT): May be a candidate for HRT, I told her to fu with her CHEMICAL COMPOUNDER. Order labs to evaluate CV RF, dayami and PAP smear results n/a t me FU at upcoming appt consider vaginal HRT cream Encounters Date Type Department Care Team Description 02/07/2025 Patient Outreach [facility] [address] [place] [address] Amara Lou MD Pre-visit Planning (SDOH screening completed on 12/05/2024) 12/25/2024 Refill [facility] [address] [place], [place] [phone] Amara Lou MD 12/12/2024 Results Follow-Up [address] [address] Teri Kat, W[place] Testosterone, Total, males (Adult), [place] 12/11/[address] [address] Amara Lou MD 12/05/2024 9:45 AM EDT Office Visit [address] [address] Amara Lou MD Encounter for preventive health examination (Primary Dx); Hypercholesterolemia; Polyarthropathy; Anxiety disorder, transient organic 12/05/2024 Travel 12/04/[address] [address] Amara Lou MD chart prep 12/03/2024 Results Follow-Up [address] [address] Amara Lou MD XR Hip 2 or 3 Views Right 11/27/2024 10:00 AM EDT Office Visit [address] [address] Amara Lou MD Menopause syndrome (Primary Dx); Allergic contact dermatitis, unspecified trigger; Anxiety; Primary osteoarthritis of both knees; Bursitis of other bursa of right hip; Inflammation of sacroiliac joint ([facility]/HCC); Hypersomnia 11/27/2024 Patient Outreach [address] [address] Amara Lou MD Pre-visit Planning (SDOH to be done in office ) 11/27/2024 Travel 11/26/2024 Telephone [facility] [address] [place] [address] Amara Lou MD Chart prep 11/20/2024 Patient Outreach [facility] [address] [place] [address] Amara Lou MD Pre-visit Planning (SDOH unable to reach [facility] ) from Last 3 Months Immunizations Immunization [...] Description 02/18/2025 9:00 AM EDT Office Visit [facility] [address] [place], [place] [phone] Amara Lou MD [address] [place], [place] [phone] Health Maintenance Due Date Last Done Comments [...] AM EDT Primary osteoarthritis of both knees AMARA SCREEN, IFA, W/REFL TITER AND PATTERN Routine [...] Vitamin D 25-OH Total 29.3(L) >30 ng/mL [facility] Comment: Health Based Reference Values*< 20 ng/mL Hpxyuvvjo96-44 ng/mL Insufficient> 30 ng/mL Sufficient*Coy HERNANDEZ. N [...] AM EDT 12/04/2024 9:28 AM EDT us Amara Lou MD LAB BLOOD ORDERABLES Fin al Result Performing Organization Address City/[facility]/ZIP Co de Phone Number [facility] [address] [place] [phone] * TSH with Reflex to Free T4 (12/04/2024 9:28 AM EDT) TSH reflex Free T4 3.23 0.32 - 4.0 uIU/mL [facility] Blood 12/04/2024 9:28 AM EDT 12/04/2024 9:28 AM EDT Amara Lou MD LAB BLOOD ORDERABLES Fin al Result Performing Organization Address City/[facility]/ZIP Co de Phone Number [facility] [address] [place] [phone] * (ABNORMAL) Lipid Panel with Reflex to Direct LDL (12/04/2024 9:28 AM EDT) Triglycerides 46 <150 mg/dL [facility] Comment:Desirable Triglyceri de: less than 150 mg/dLBorderline High Triglyceride 150-199 mg/dLHigh Triglyceride: 200-499 mg/dLVery High Triglyceride: greater than or equal to 5OO mg/dL Cholesterol 213(H) <200 mg/dL [facility] Comment:Desirable Cholestero l: less than 200 mg/dLBorderline High Cholesterol: 200-239 mg/dLHigh Cholesterol: greater than 239 mg/dL LDL Cholesterol Calculated 121(H) <100 mg/dL [facility] Comment:Desirable LDL: less than 100 mg/dLNear Optimal/Above Optimal LDL: 110- 129 mg/dLBorderline High LDL: 130-159 mg/dLHigh LDL: 160-189 mg/dLVery High LDL: greater than or equal to 190 mg/dL HDL Cholesterol 83 >40 mg/dL [facility] Comment:Desirable HDL: great er than 40 mg/dL Note: This HDL assay may give artificially low results in patients with liver disease. Blood 12/04/2024 9:28 AM EDT 12/04/2024 9:28 AM EDT us Amara Lou MD LAB BLOOD ORDERABLES Fin al Result [facility] [address] [place] [phone] * Hepatitis Panel, General (12/04/2024 9:28 AM EDT) Hepatitis A IgM Nonreactive Nonreactive [facility] Comment:IgM antibodies to MCDUFFIE V not detected; does not exclude earlyacute or recovered HAV infection. ~Hepatitis B Surface Antibody REACTIVE Nonreactive [facility] Comment:REACTIVE: > 11.99 mI U/mL Hepatitis B Core Antibody Nonreactive Nonreactive [facility] Hepatitis C Antibody Nonreactive Nonreactive [facility] Comment:Antibodies to HCV no t detected; does not exclude early acuteHCV infection. Hepatitis B Surface Ag Negative Negative [facility] Blood 12/04/2024 9:28 AM EDT 12/04/2024 9:28 AM EDT Amara Lou MD LAB BLOOD ORDERABLES Fin al Result [facility] [address] [place] [phone] * CBC auto differential (12/04/2024 9:28 AM EDT) White Blood Count 4.8 4.8 - 10.8 X10*3/uL [facility] Red Blood Count 4.38 4.20 - 5.50 X10*6/uL [facility] Hemoglobin 13.2 12.0 - 16.0 g/dl [facility] Hematocrit 40.2 37.0 - 47.0 % [facility] Mean Corpuscular Volume 91.8 80.0 - 98.0 fL [facility] Mean Corpuscular Hemoglobin 30.1 27.0 - 33.0 pg [facility] Mean Corpuscular HGB Conc 32.8 31.0 - 35.0 g/dl [facility] Red Cell Distribution Width 14.2 11.0 - 16.0 % [facility] Platelet Count 204 160 - 400 X10*3/uL [facility] Mean Platelet Volume 10.3 9.4 - 12.3 fL [facility] Neutrophils Percent Auto 53.3 45 - 73 % [facility] Imm Gran Pct Auto 0.4 0.0 - 0.4 % [facility] Lymphocytes Percent Auto 34.9 20 - 40 % [facility] Monocytes Percent Auto 6.1 2 - 11 % [facility] Eosinophils Percent Auto 3.6 0 - 4 % [facility] Basophils Percent Auto 1.7 0 - 2 % [facility] NRBC Pct Auto 0.0 0.0 - 0.2 /100WBC [facility] Neutrophils Absolute Auto 2.5 2.0 - 8.3 x10*3/uL [facility] Imm Gran Abs Auto 0.02 0.00 - 0.03 X10*3/uL [facility] Lymphocytes Absolute Auto 1.7 1.2 - 4.9 X10*3/uL [facility] Monocytes Absolute Auto 0.3 0.1 - 1.2 X10*3/uL [facility] Eosinophils Absolute Auto 0.2 0.0 - 0.4 X10*3/uL [facility] Basophils Absolute Auto 0.1 0.0 - 0.2 X10*3/uL [facility] NRBC Abs Auto 0.000 0.0 - 0.012 X10*3/uL [facility] Blood Venous blood specimen / Unknown 12/04/2024 9:28 AM EDT 12/04/2024 9:28 AM EDT us Amara Lou MD LAB BLOOD ORDERABLES Fin al Result Performing Organization Address City/[facility]/ZIP Co de Phone Number [facility] [address] [place] [phone] * Sed Rate by Modified Mookieergren (12/04/2024 9:28 AM EDT) Pathologist [facility] Erythrocyte Sedimentation Rate 9 0 - 20 MM/HR [facility] Comment:Patients with polycy themia and many hemoglobin abnormalitiesmay have depressed sed rates whereas patients with anemiamay have elevated sed rates. Blood Venous blood specimen / Unknown 12/04/2024 9:28 AM EDT 12/04/2024 9:28 AM EDT us Amara Lou MD LAB BLOOD ORDERABLES Fin al Result Performing Organization Address City/[facility]/ZIP Co de Phone Number [facility] [address] [place] [phone] * Rheumatoid Factor (12/04/2024 9:28 AM EDT) Pathologist [facility] Rheumatoid Factor <13.0 <15.0 IU/mL [facility] Blood Venous blood specimen / Unknown 12/04/2024 9:28 AM EDT 12/04/2024 9:28 AM EDT Amara Lou MD LAB BLOOD ORDERABLES Fin al Result Performing Organization Address [facility] Co de Phone Number [facility] [address] [place] [phone] * C-reactive Protein (12/04/2024 9:28 AM EDT) C Reactive Protein 0.46 < or = 0.50 mg/dL [facility] Blood Venous blood specimen / Unknown 12/04/2024 9:28 AM EDT 12/04/2024 9:28 AM EDT Amara Lou MD LAB BLOOD ORDERABLES Fin al Result Performing Organization Address [facility] Co de Phone Number [facility] [address] [place] [phone] * AMARA Screen,IFA, with Reflex to Titer and Pattern (12/04/2024 9:28 AM EDT) Anti Nuclear Antibody Screen NEGATIVE NEGATIVE [facility] Comment:AMARA IFA is a first l ine screen for detecting thepresence of up to approximately 150 autoantibodies invarious autoimmune diseases. A negative AMARA IFA resultsuggests an AMARA-associated autoimmune disease is notpresent at this time, but is not definitive. If thereis high clinical suspicion for Sjogren's syndrome,testing for anti-SS-A/Ro antibody should be considered.Anti-Ashley-1 antibody should be considered for clinicallysuspected inflammatory myopathies.AC-0: NegativeInternational Consensus on AMARA Patterns(https://doi.org/10.1515/ubcj-9655-4331)For additional information, please refer tohttp://education.Banjo.fl3ur/faq/ARG647(This link is being provided for informational/educational purposes only.)THIS TEST WAS PERFORMED AT:[employer] [place] [phone] VIGIL MD AMARA Titer TNP [facility] AMARA Pattern TNP [facility] AMARA TITER 2 (REF LAB) [facility] AMARA Pattern 2 TNP [facility] AMARA TITER 3 [facility] AMARA PATTERN 3 [facility] Blood Venous blood specimen / Unknown 12/04/2024 9:28 AM EDT 12/04/2024 9:28 AM EDT Amara Lou MD LAB BLOOD ORDERABLES Fin al Result Performing Organization Address [facility] Co de Phone Number [facility] [address] [place] [phone] * Uric acid (12/04/2024 9:28 AM EDT) Uric Acid 4.2 2.4 - 5.7 mg/dL [facility] Blood Venous blood specimen / Unknown 12/04/2024 9:28 AM EDT 12/04/2024 9:28 AM EDT Amara Lou MD LAB BLOOD ORDERABLES Fin al Result Performing Organization Address [facility] de Phone Number [facility] [address] [place] [phone] * XR Hip 2 or 3 Views Right (11/27/2024 1:10 PM EDT) Anatomical Region Laterality Modality Lower Extremities, Hip Right Radiograp hic Imaging 11/27/2024 1:10 PM EDT Narrative 11/27/2024 2:03 PM EDT [address] [address] XRay Report Signed Patient: Amara Kennedy MR#: [id number] : 1965 Acct:[id number] Age/Sex: 59 / F ADM Date: 11/27/24 Loc: HO.XRAY Attending Dr: Amara Lou MD Ordering Physician: Amara Lou MD Date of Service: 11/27/24 Procedure(s): XR hip RT min 2V Accession Number(s): [id number] cc: Amara Lou MD EXAMINATION: XR HIP, RIGHT CLINICAL [...] 11/27/24 1400 DD/ 1310 TD/TT: 11/27/24 1323 Regulatory Associate: Procedure Note Donotuseinterpreter, Image - 11/27/2024 [place] [address] XRay Report Signed Patient: Amara Kennedy LMR#: [id number] : 1965Acct:[id number] Age/Sex: 59 / FADM Date: 11/27/24 Loc: HO.XRAY Attending Dr: Amara Lou MD Ordering Physician: Amara Lou MD Date of Service: 11/27/24 Procedure(s): XR hip RT min 2V Accession Number(s): [id number] cc: Amara Lou MD EXAMINATION: XR HIP, RIGHT CLINICAL [...] 11/27/24 1400 DD/ 1310 TD/TT: 11/27/24 1323 Regulatory Associate: Amara Lou MD IMG XR PROCEDURES Final Result * Pap Smear (02/15/2023) Pap Negative for intraephithelial lesion or malignancy Negative for intraephithelial lesion or malignancy, Other HPV Not Detected Undetected, Indeterminate, Quantitative, Not Detected Historical Provider HEALTH MAINTENANCE Final Result * Colonoscopy (03/19/2021 7:46 AM EDT) Historical Provider HEALTH MAINTENANCE Final Result from Last 3 Months or Most Recently Relevant to Health Maintenance Insurance [facility] , [address] [place] [address] Care Teams Solid Waste Collection Worker Relationship Specialty Start Date End Date Amara Lou MD [address] [place] [phone] PCP - General Family Medicine 03/14/16
--- OUTSIDE RECORDS SUMMARY | 2025-02-12 16:20 | XMS_ITS | Encounter Summary ---
Author Organization [employer] Address [address] 7t [place] [address] Care Team Providers Care Machine Shop Specialist Name Role Phone Amara Lou MD Primary Care Provider + Encounter Details Date Type Department Care Team ([facility] st Contact Info) Description 12/12/2024 Results Follow-Up [facility] [address] [place] [address] Teri Kat, [facility] [address] [place] [address] Testosterone, Total, males (Adult), [place] Social History [...] Description 02/18/2025 9:00 AM EDT Office Visit [facility] [address] [place] [phone] Amara Lou MD [address] [place] [phone] documented as of this encounter Visit Diagnoses Not on filedocumented in this encounter Care Teams Machine Shop Specialist Relationship Specialty Start Date End Date Amara Lou MD [address] [place] [phone] PCP - General Family Medicine 03/14/16 documented as of this encounter
--- OUTSIDE RECORDS SUMMARY | 2025-02-12 16:20 | XMS_ITS | Encounter Summary ---
Author Organization [employer] Address 75 [facility] 7 [place] [address] Care Team Providers Care Clearance Coordinator Name Role Phone Amara Lou MD Primary Care Provider + Reason for Visit * Reason Comments Pre-visit Planning SDOH screening compl eted on 12/05/2024 Encounter Details Date Type Department Care Team ([facility] st Contact Info) Description 02/07/2025 Patient Outreach [facility] [address] [place], [place] [phone] Amara Lou MD [address] [place], [place] [phone] Pre-visit Planning (SDOH screening completed on 12/05/2024) Social History Tobacco Use Types Packs/Day Years [...] AM EDT documented as of this encounter Progress Notes * Marisabel Duckworth - 02/07/2025 9:27 AM EDT CC Marisabel placed successful outbound call to patient for pre-visit planning. Patient name and confirmed. Patient confirms appt date and time, and has transportation. Biggest concern for appointment at this time is none Patient advised to bring to appointment a photo id and insurance card. Appropriate screenings completed in anticipation of appointment. documented in this encounter Plan of Treatment Upcoming Encounters Date Type Department Care Team (Late st Contact Info) Description 02/18/2025 9:00 AM EDT Office Visit [facility] [address] [place] [address] Amara Lou MD [address] [place] [address] documented as of this encounter Visit Diagnoses Not on filedocumented in this encounter Care Teams Clearance Coordinator Relationship Specialty Start Date End Date Amara Lou MD [address] [place] [address] PCP - General Family Medicine 03/14/16 documented as of this encounter
[2025-02-13 07:53] LABS: Immunoglobulin A 143 mg/dL (47-310)
== END 2025-02-12 14:04 | disposition home or self-care (01) ==
LOC: HO.HHCL 14:03
PROVIDERS: PCP Internal Medicine; Visit Provider Internal Medicine
DX: R14.0 Abdominal distension (gaseous) (principal)
CPT/HCPCS: 36415; 82784; 84443; 86364

== ENCOUNTER 2025-02-26 10:09 | Outpatient (REF) | payer OTHER, SELFPAY | END 2025-02-26 10:10 | disposition home or self-care (01) | LOC: HO.LAB 10:09 | PROVIDERS: PCP Internal Medicine; Visit Provider Internal Medicine | DX: R14.0 Abdominal distension (gaseous) (principal); R10.13 Epigastric pain | CPT/HCPCS: 83013 ==

== ENCOUNTER 2025-02-26 10:09 | Outpatient (AMB) | payer OTHER, SELFPAY ==
--- NOTE | 2025-02-26 10:21 | AM.OFFVISNUR ---
Intake Visit Reasons: H. Pylori Intake Note: Patient presents for collection of?H Pylori?breath test. Patient has been fasting for 1 hour (nothing to eat, drink, no chewing gum or smoking) has not taken any antacid medication for at least 2 weeks and has no allergies to artificial sweeteners.?? Allergies clarithromycin (CLARITHROMYCIN) Allergy (Intermediate, Verified 02/05/25 15:06) INSOMNIA Assessment & Plan Assessment & Plan (1) Abdominal bloating: Code(s): R14.0 - Abdominal distension (gaseous) Category: Medical (2) Postprandial epigastric pain: Code(s): R10.13 - Epigastric pain Category: Medical Plan Patient presents for collection of?H Pylori?breath test. Patient has been fasting for 1 hour (nothing to eat, drink, no chewing gum or smoking) has not taken any antacid medication for at least 2 weeks and has no allergies to artificial sweeteners.???This test checks for an overgrowth of bacteria in your stomach. We all have bacteria but some may have more than others. It is treatable. if the test comes back negative there is nothing else to do. If the test result is positive we will treat you with 2 antibiotics and a medication to decrease the acid in your stomach (PPI) for 2 weeks. Two weeks after you have completed the treatment we will retest you to make sure the overgrowth has resolved. Patient Instructions: Process for specimen collection and reason for testing was explained to the patient. Specimen collection. Patient instructed to take a deep breath and then exhale into the blue bag, filling it up as much as possible. Patient instructed to drink a mixture of water and the artificial sweetener with a straw. A 15 minute wait period was observed. Patient instructed to take a deep breath and then exhale into the pink bag, filling it up as much as possible. Coding Level of Care Code Est Pt Level 1 (86510) Diagnoses Abdominal bloating R14.0 Postprandial epigastric pain R10.13
--- OUTSIDE RECORDS SUMMARY | 2025-02-26 12:21 | XMS_ITS | Encounter Summary ---
Author Organization [employer] Address [address] [facility] [address] 7[address] [place] [address] Care Team Providers Care Ferryboat Deckhand Name Role Phone Amara Lou MD Primary Care Provider + Encounter Details Date Type Department Care Team ([facility] st Contact Info) Description 11/08/2023 Orders Only [facility] [address] [place] [address] ProviderAnastasiya MD Social History Tobacco Use Types [...] as of this encounter Plan of Treatment Not on file documented as of this encounter Procedures Procedure Name Priority Date/Time Associated Diagnosis Comments HM COLONOSCOPY Routine 03/19/2021 7:48 AM EDT documented in this encounter Results * Hm Colonoscopy (03/19/2021 7:48 AM EDT) us Historical Provider HEALTH MAINTENANCE Final Result documented in this encounter Visit Diagnoses Not on filedocumented in this encounter Care Teams Ferryboat Deckhand Relationship Specialty Start Date End Date Amara Lou MD [address] [place] [phone] PCP - General Family Medicine 03/14/16 documented as of this encounter
--- OUTSIDE RECORDS SUMMARY | 2025-02-26 12:21 | XMS_ITS | Encounter Summary ---
Author Organization [employer] Address [address] [facility] 7 [place] [address] Care Team Providers Care Molding Technician Name Role Phone Amara Lou MD Primary Care Provider + Encounter Details Date Type Department Care Team (Latest Contact Info) Description 08/13/2020 Abstract [facility] Dental, Provider, DDS Social History Tobacco [...] on file documented as of this encounter Visit Diagnoses Not on filedocumented in this encounter Care Teams Molding Technician Relationship Specialty Start Date End Date Amara Lou MD [address] [place] [phone] PCP - General Family Medicine 03/14/16 documented as of this encounter
--- OUTSIDE RECORDS SUMMARY | 2025-02-26 12:21 | XMS_ITS | Encounter Summary ---
Author Organization [employer] Address [address] [facility] [address] [place] [address] Care Team Providers Care Club Manager Name Role Phone Amara Lou MD Primary Care Provider + Encounter Details Date Type Department Care Team (Latest Contact Info) Description 07/03/2019 Abstract C CONVERSIONS Dental, Provider, DDS Social History Tobacco [...] on filedocumented in this encounter Care Teams Club Manager Relationship Specialty Start Date End Date Amara Lou MD [address] [place] [id number] PCP - General Family Medicine 03/14/16 documented as of this encounter
--- OUTSIDE RECORDS SUMMARY | 2025-02-26 12:21 | XMS_ITS | Clinical Summary ---
Author Organization [employer] Address [address] [facility] [address] [place] [address] Care Team Providers Care Provider Network Mgr Name Role Phone Rodrigo Lou MD Primary Care Provider + Allergies Active Allergy Reactions Criticality Noted Date Comments Clarithromycin High 08/28/2014 Monosodium Glutamate 07/21/2017 Merced Oil 08/13/2020 Tilactase 08/13/2020 Medications zoster vaccine, live, (Zostavax) 65029 UNT/0.65ML injection inject 0.65 milliliter by subcutaneous route once 019 Active estradiol (Estrace) 0.1 MG/GM vaginal creamIndicati ons:Perimenop ause 0.5g daily x 1 week then 0.5g intravaginally three times per week for 2 weeks then 0.5g intravaginally BIW thereafter 42.5 g 2 023 Active azelastine (Astelin) 0.1 % nasal spray Administer 1 spray into each nostril at bedtime. Use in each nostril as directed 30 mL 024 Active meclizine (Antivert) 12.5 MG tablet TAKE 1 TABLET BY MOUTH THREE TIMES DAILY NEEDED FOR DIZZINESS 90 tablet 1 025 Active betamethasone valerate (Valisone) 0.1 % cream Apply topically if needed in the morning and at bedtime (dryness). 45 g 2 025 Active escitalopram (Lexapro) 5 MG tablet Take 1 tablet (5 mg) by mouth Once per day. 90 tablet 1 025 2024 Active albuterol (ProAir HFA) 108 (90 Base) MCG/ACT inhaler Inhale 2 puffs every 4 (four) hours if needed for wheezing or shortness of breath. 18 g Active meloxicam (Mobic) 15 MG tablet Take 1 tablet (15 mg) by mouth Once per day. 30 tablet 025 2025 Active albuterol (ProAir HFA) 108 (90 Base) MCG/ACT inhaler Inhale 2 puffs every 4 (four) hours if needed. 020 2024 Discontinued(R eorder (will not trigger notification to Pharmacy)) meloxicam (Mobic) 15 MG tablet Take 1 tablet (15 mg) by mouth Once per day. 30 tablet 025 2024 Discontinued(R eorder (will not trigger notification to Pharmacy)) pantoprazole (ProtoNix) 40 MG EC tablet TAKE 1 TABLET BY MOUTH EVERY DAY BEFORE BREAKFAST. DO NOT BREAK, CRUSH, DISSOLVE OR CHEW. 90 tablet 1 025 2024 Discontinued(I neffective) sucralfate (Carafate) 1 g tablet Take 1 tablet (1 g) by mouth before breakfast, before lunch, before evening meal, and at bedtime for 7 days. 28 tablet 025 2024 Active Problems Problem Noted Date Diagnosed Date Postprandial bloating 02/18/2025 Assessment & Plan (02/18/2025 2:56 PM EDT): Unclear if symptoms are related to dumping syndrome vs anxiety vs significant GERD (exacerbated by menopausal changes). H. pylori testing is pending She will start sucralfate after H. pylori testing x 1 week and continue as needed until she follows up with GI Continue Pepcid for now I gave her information regarding dumping syndrome, to remain hydrated, to have a small and fraction meals always including protein and avoid high carb loads. 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 IBS. I gave her information regarding lifestyle and dietary modifications. Will consider checking vitamin and trace minerals labs at next visit Hypercholesterolemia 12/05/2024 Assessment & Plan (12/05/2024 3:12 [...] of moderate intensity exercise, she exercises routinely. Menopause syndrome 11/30/2023 Assessment & Plan (02/18/2025 2:59 PM EDT): Surgical oncology information and report of breast biopsy reviewed. Given patient's new information regarding absence of family history of breast cancer, she may be a candidate for HRT or other menopause treatments. She tells me she has appointment with [employer] [employer] [facility] (format proofreader Flakita Yu) in few weeks. Increase Lexapro for treatment of anxiety, she did not tolerate venlafaxine. Follow-up with me in 3 to 4 months Assessment & Plan (11/27/2024 12:44 PM EDT): We discussed about option treatment for HRT but I told her that importantly she needs to clarify about her mother's history of breast cancer (unclear at this time she did or did not have breast cancer) and also verified with [employer] if her breast lesions are not a contraindication for HRT (I believe they are not, but according to patient they told her there are premalignant lesions?). She will continue on vaginal estrogen cream for dyspareunia I will refer her to pelvic floor physical therapy at the [address] [place] [address] in [place] I will treat anxiety and follow-up with her in 6 weeks Assessment & Plan (01/08/2024 10:23 AM EDT): On estrogen cream by [employer] Advised to discuss systemic HRT instead due [...] exacerbation of arthralgias. Advised to discuss with [employer] re oral HRT, has ? Hx breast Ca? Dental calculus 10/11/2023 Arthralgia 11/24/2022 Assessment & Plan (02/18/2025 3:02 PM EDT): No evidence of inflammatory arthritis on more recent exams. Symptoms may be have been exacerbated by menopause, will start meloxicam daily x 2 weeks then as needed, can take Tylenol as needed breakthrough pain Advised to use compression gloves at night, she is doing hand exercises at home (she did OT few years ago) Assessment & Plan (12/23/2022 2:16 PM EDT): [...] improve with HRT she will fu with [employer] Assessment & Plan (11/24/2022 2:53 PM EDT): On multiple sites, I don't see significant deformity or inflammation/synovitis today. RO inflammatory arthritis, I think is OA exacerbated by menopause/anxiety. Order labs, use tylenol prn Encounter for preventive health examination 11/10 Assessment [...] up to date, obtain last report from [facility] [employer] Mammogram: Reportedly up to date, [facility]: N/A, due at age 67 Eye exam: Up to date, next one due on 11/2024 CRC screen: Obtain report form [facility] and fu at next appt Lipids/FBS: TBO [...] next RV Anxiety 05/04/2022 Assessment & Plan (02/18/2025 3:00 PM EDT): She did not tolerate venlafaxine, she will increase Lexapro to 5 mg daily and follow-up with me in 3 to 4 months Will follow closely regarding decreased libido, she is probably a candidate for menopausal treatment, (she wants to follow-up with format proofreader for this, see above) Will add hydroxyzine as needed if symptoms do not improve, so that she can take for anxiety exacerbation, patient will call me back in about 2 to 3 weeks if symptoms do not improve significantly Assessment & Plan (11/27/2024 12:50 PM EDT): [...] medications, FU with me in 6 months Inflammation of sacroiliac joint 05/04/2022 Assessment & [...] of? Breast cancer, she should follow-up with [facility] [facility] Primary osteoarthritis of both knees 05/04/2022 Assessment [...] hemorrhoids 03/15/2018 Chronic low back pain 10/06/2017 Vertigo 10/06/2017 Epigastric pain 07/25/2017 Assessment & Plan (04/22/2024 5:54 PM EST): Doing well on Protonix Food intolerance 07/25/2017 Asthenia 04/24/2017 Mild intermittent asthma 03/28/2016 Assessment & Plan (02/18/2025 3:00 PM EDT): No recent exacerbation, use albuterol as needed Advised regarding PCV, influenza and COVID immunization this fall Postural orthostatic tachycardia syndrome 2012 Breast lump 11/14/2011 Overview (02/18/2025): Sp biopsy on 2011 (basytate): Fibroadenoma with ductal sclerosis + adenosis and ductal hyperplasia without atypia or apocrine changes. FU by surgical oncology Assessment & Plan (02/18/2025 3:14 PM EDT): Patient status post breast biopsy in 2011 with benign findings: Fibroadenoma with no malignant changes. Continue routine mammogram screening, follow-up with surgical oncology Advised to avoid smoking. She may not be a high risk candidate for HRT for menopausal symptoms, she will follow-up with format proofreader and with me in 3 months. Contact dermatitis 11/14/2011 Assessment & Plan (02/18/2025 3:01 PM EDT): On hands, doing well on Betamethasone Advised to use protective gloves Assessment & Plan (11/27/2024 12:52 PM EDT): On fingers. Advised to use Betamethasone cream and covering affected areas with gauze, she will use protective gloves for house chores or activities that require handling chemicals Tinnitus 11/14/2011 Resolved Problems Problem Noted Date Diagnosed Date Resolved Date Sprain of right ankle 04/22/20242024 Assessment & Plan (04/22/2024 5:57 PM EST): Xrays were normal Continue ankle immobilizer to complete 3-4w Refer to PT Foot trauma, right, initial encounter 02/28/2024 12/05/2024 Assessment & Plan (02/28/2024 7:00 PM EDT): Twist and inversion trauma. See sprain. 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 Follow-up with me as scheduled for 6 weeks. Assessment & Plan (11/24/2022 3:03 PM EDT): She has been on lexapro 5m > 1y, fu at next appt w labs, consider increasing meds. Feels safe at home Weight loss 07/25/2017 02/18/2025 Perimenopause 04/04/2017 11/30/2023 Assessment & Plan (12/23/2022 2:17 PM EDT): Pt could be a candidate for HRT but unfortunately I don't have latest PAP smear and mammogram and it is unclear why is she getting them every year. I explained to her that I would like to make sure that there is no other [employer] pathology before I start HRT. She agreed with the POC. We will try to obtain 2021 pap smear and mammorgam from [facility], pt has appointment with [employer]MENT INST[employer] in February. FU in 2mo Assessment & Plan (11/24/2022 3:04 PM EDT): May be a candidate for HRT, I told her to fu with her [employer]. Order labs to evaluate CV RF, dayami and PAP smear results n/a t me FU at upcoming appt consider vaginal HRT cream Viral upper respiratory tract infection 04/04/2017 02/18/2025 Acute back pain with sciatica 02/16/2017 02/18/2025 Neck pain 02/16/2017 02/18/2025 Cough 02/24/2012 02/18/2025 Assessment & Plan (01/08/2024 10:18 AM EDT): It's probably sinus congestin Advised to use Flonase daily and Astelin at bedtime, she's sp Augmentin 10d ago. Order PFTs due to hx asthma and fu in 3m It is most likely residual from covid. Allergic rhinitis 11/14/2011 02/18/2025 Disorder of skin 11/14/2011 02/18/2025 Encounters Date Type Department Care Team Description 02/18/2025 9:00 AM EDT Office Visit [facility] [address] [place] [address] Rdorigo Lou MD Anxiety (Primary Dx); Arthralgia of both hands; Dumping syndrome; Menopause syndrome; Mass of breast, unspecified laterality; Allergic contact dermatitis, unspecified trigger; Postprandial bloating; Mild intermittent asthma without complication 02/18/2025 Travel 02/17/[address] [address] Rodrigo Lou MD chart prep 02/17/2025 Travel 02/12/2025 Orders Only GENERIC EXTERNAL DATA DEPARTMENT Provider, Generic External Data 02/07/2025 Patient Outreach [address] [address] Rodrigo Lou MD Pre-visit Planning (SDOH screening completed on 12/05/2024) 12/25/[address] [address] Rodrigo Lou MD 12/12/2024 Results Follow-Up [address] [address] Teri Kat, CN Testosterone, Total, males (Adult), [place] 12/11/[address] [address] Rodrigo Lou MD 12/05/2024 9:45 AM EDT Office Visit [address] [address] Rodrigo Lou MD Encounter for preventive health examination (Primary Dx); Hypercholesterolemia; Polyarthropathy; Anxiety disorder, transient organic 12/05/2024 Travel 12/04/[address] [address] Rodrigo Lou MD chart prep 12/03/2024 Results Follow-Up [address] [address] Rodrigo Lou MD XR Hip 2 or 3 Views Right 11/27/2024 10:00 AM EDT Office Visit [address] [address] Rodrigo Lou MD Menopause syndrome (Primary Dx); Allergic contact dermatitis, unspecified trigger; Anxiety; Primary osteoarthritis of both knees; Bursitis of other bursa of right hip; Inflammation of sacroiliac joint (CMS/HCC); Hypersomnia 11/27/2024 Patient Outreach [address] [address] Rodrigo Lou MD Pre-visit Planning (SDOH to be done in office ) 11/27/2024 Travel 11/26/2024 Telephone [facility] [address] [place] [address] Rodrigo Lou MD Chart prep from Last 3 Months Immunizations Immunization Administration [...] Father Breast cancer Mother per garcía Maloney r did not have breast cancer Arthritis Sister [...] Sign Reading Time Taken Comments Blood Pressure 110/60 02/18/2025 8:58 AM EDT Pulse 80 02/18/2025 8:58 AM EDT Temperature 36.3 C (97.4 F) 02/18/2025 8:58 AM EDT Respiratory Rate 20 02/18/2025 8:58 AM EDT Oxygen Saturation 98% 05/21/2024 1:02 PM EST Inhaled Oxygen Concentration - - Weight 57.7 kg (127 lb 3.2 oz) 02/18/2025 8:58 A M EDT Height 152.4 cm (5') 02/18/2025 8:58 AM EDT Body Mass Index 24.84 02/18/2025 8:58 AM EDT Plan of Treatment Health Maintenance Due Date Last Done Comments [...] 08/15/2023 08/13/2020, 08/11 COVID-19 Vaccine ( season) 2025 05/11/2021, 07/07/2020, 06/09/2020 Influenza Vaccine (#1) 2025 , 02/25/2021, 02/27/2020, Additional history exists Mammogram 04/29/2025 [...] Procedure Name Priority Date/Time Associated Diagnosis Comments TISSUE TRANSGLUTAMINASE AB, IGA Routine 02/12/2025 2:06 PM EDT IMMUNOGLOBULIN A Routine 02/12/2025 2:06 PM EDT TSH W/REFLEX TO FT4 Routine 02/12/2025 2 :06 PM EDT VITAMIN D,25-OH,TOTAL,IA Routine 12/04/2024 9:28 AM EDT [...] Recently Relevant to Health Maintenance Results * TSH with Reflex to Free T4 (02/12/2025 2:06 PM EDT) Only the most recent of2 resultswithin the time period is included. TSH reflex Free T4 1.50 0.32 - 4.0 uIU/mL [facility] 02/12/2025 2:06 PM EDT 02/12/2025 4:17 PM EDT Generic External Data Provider LAB BLOOD ORDERAB LES Final Result Performing Organization Address [facility] Co de Phone Number [facility] [address] [place] [phone] * Tissue Transglutaminase Antibody, IgA (02/12/2025 2:06 PM EDT) Transglutaminase IgA <1.0 U/mL [facility] Comment:Value Interpretation ----- <15.0 Antibody not detected> or = 15.0 Antibody detectedTHIS TEST WAS PERFORMED AT:[employer] [place] [phone] VIGIL MD 02/12/2025 2:06 PM EDT 02/12/2025 4:17 PM EDT Generic External Data Provider LAB BLOOD ORDERAB LES Final Result Performing Organization Address [facility] Co de Phone Number [facility] [address] [place] [phone] * Immunoglobulin A (02/12/2025 2:06 PM EDT) Immunoglobulin A, Qn, Serum 143 47 - 310 mg/dL [facility] Comment:THIS TEST WAS PERFOR MED AT:[facility] [place] [phone] VIGIL MD 02/12/2025 2:06 PM EDT 02/12/2025 4:17 PM EDT us Generic External Data Provider LAB BLOOD ORDERAB LES Final Result [facility] [address] [place] [phone] * (ABNORMAL) Vitamin D, 25-Hydroxy, Total, Immunoassay (12/04/2024 9:28 AM EDT) Vitamin D 25-OH Total 29.3(L) >30 ng/mL [facility] Comment: Health Based Reference Values*< 20 ng/mL [id number] ng/mL Insufficient> 30 ng/mL Sufficient*Coy HERNANDEZ. N [...] ORDERABLES Fin al Result Performing Organization Address [facility] Co de Phone Number [facility] [address] [place] [phone] * (ABNORMAL) Lipid Panel with Reflex to Direct LDL (12/04/2024 9:28 AM EDT) Triglycerides 46 <150 mg/dL [facility] Comment:Desirable Triglyceri de: less than 150 mg/dLBorderline High Triglyceride 150-199 mg/dLHigh Triglyceride: 200-499 mg/dLVery High Triglyceride: greater than or equal to 5OO mg/dL Cholesterol 213(H) <200 mg/dL [facility] Comment:Desirable Cholestero l: less than 200 mg/dLBorderline High Cholesterol: 200-239 mg/dLHigh Cholesterol: greater than 239 mg/dL LDL Cholesterol Calculated 121(H) <100 mg/dL [facility] Comment:Desirable LDL: less than 100 mg/dLNear Optimal/Above Optimal LDL: 110- 129 mg/dLBorderline High LDL: 130-159 mg/dLHigh LDL: 160-189 mg/dLVery High LDL: greater than or equal to 190 mg/dL HDL Cholesterol 83 >40 mg/dL [facility] Comment:Desirable HDL: great er than 40 mg/dL Note: This HDL assay may give artificially low results in patients with liver disease. Blood 12/04/2024 9:28 AM EDT 12/04/2024 9:28 AM EDT us Rodrigo Lou MD LAB BLOOD ORDERABLES Fin al Result Performing Organization Address [facility]/ZIP Co de Phone Number [facility] [address] [place] [phone] * Hepatitis Panel, General (12/04/2024 9:28 AM EDT) Hepatitis A IgM Nonreactive Nonreactive [facility] Comment:IgM antibodies to MCDUFFIE V not detected; does not exclude earlyacute or recovered HAV infection. ~Hepatitis B Surface Antibody REACTIVE Nonreactive [facility] Comment:REACTIVE: > 11.99 mI U/mL Hepatitis B Core Antibody Nonreactive Nonreactive [facility] Hepatitis C Antibody Nonreactive Nonreactive [facility] Comment:Antibodies to HCV no t detected; does not exclude early acuteHCV infection. Hepatitis B Surface Ag Negative Negative [facility] Blood 12/04/2024 9:28 AM EDT 12/04/2024 9:28 AM EDT us Rodrigo Lou MD LAB BLOOD ORDERABLES Fin al Result [facility] [address] [place] [phone] [phone] * CBC auto differential (12/04/2024 9:28 AM EDT) White Blood Count 4.8 4.8 - 10.8 X10*3/uL [facility] Red Blood Count 4.38 4.20 - 5.50 X10*6/uL [facility] Hemoglobin 13.2 12.0 - 16.0 g/dl [facility] Hematocrit 40.2 37.0 - 47.0 % [facility] Mean Corpuscular Volume 91.8 80.0 - 98.0 fL [facility] Mean Corpuscular Hemoglobin 30.1 27.0 - 33.0 pg [facility] Mean Corpuscular HGB Conc 32.8 31.0 - 35.0 g/dl [facility] Red Cell Distribution Width 14.2 11.0 - 16.0 % [facility] Platelet Count 204 160 - 400 X10*3/uL [facility] Mean Platelet Volume 10.3 9.4 - 12.3 fL [facility] Neutrophils Percent Auto 53.3 45 - 73 % [facility] Imm Gran Pct Auto 0.4 0.0 - 0.4 % [facility] Lymphocytes Percent Auto 34.9 20 - 40 % [facility] Monocytes Percent Auto 6.1 2 - 11 % [facility] Eosinophils Percent Auto 3.6 0 - 4 % [facility] Basophils Percent Auto 1.7 0 - 2 % [facility] NRBC Pct Auto 0.0 0.0 - 0.2 /100WBC [facility] Neutrophils Absolute Auto 2.5 2.0 - 8.3 x10*3/uL [facility] Imm Gran Abs Auto 0.02 0.00 - 0.03 X10*3/uL [facility] Lymphocytes Absolute Auto 1.7 1.2 - 4.9 X10*3/uL [facility] Monocytes Absolute Auto 0.3 0.1 - 1.2 X10*3/uL [facility] Eosinophils Absolute Auto 0.2 0.0 - 0.4 X10*3/uL [facility] Basophils Absolute Auto 0.1 0.0 - 0.2 X10*3/uL [facility] NRBC Abs Auto 0.000 0.0 - 0.012 X10*3/uL [facility] Blood Venous blood specimen / Unknown 12/04/2024 9:28 AM EDT 12/04/2024 9:28 AM EDT us Rodrigo Lou MD LAB BLOOD ORDERABLES Fin al Result Performing Organization Address City/[facility]/ZIP Co de Phone Number [facility] [address] [place] [phone] * Sed Rate by Modified Payal (12/04/2024 9:28 AM EDT) Erythrocyte Sedimentation Rate 9 0 - 20 MM/HR [facility] Comment:Patients with polycy themia and many hemoglobin abnormalitiesmay have depressed sed rates whereas patients with anemiamay have elevated sed rates. Blood Venous blood specimen / Unknown 12/04/2024 9:28 AM EDT 12/04/2024 9:28 AM EDT us Rodrigo Lou MD LAB BLOOD ORDERABLES Fin al Result [facility] [address] [place] [phone] * Rheumatoid Factor (12/04/2024 9:28 AM EDT) Pathologist [facility] Rheumatoid Factor <13.0 <15.0 IU/mL [facility] Blood Venous blood specimen / Unknown 12/04/2024 9:28 AM EDT 12/04/2024 9:28 AM EDT Rodrigo Lou MD LAB BLOOD ORDERABLES Fin al Result Performing Organization Address [facility] Co de Phone Number [facility] [address] [place] [phone] * C-reactive Protein (12/04/2024 9:28 AM EDT) Pathologist [facility] C Reactive Protein 0.46 < or = 0.50 mg/dL [facility] Blood Venous blood specimen / Unknown 12/04/2024 9:28 AM EDT 12/04/2024 9:28 AM EDT Rodrigo Lou MD LAB BLOOD ORDERABLES Fin al Result Performing Organization Address [facility] Co de Phone Number [facility] [address] [place] [phone] * RODRIGO Screen,IFA, with Reflex to Titer and Pattern (12/04/2024 9:28 AM EDT) Pathologist [facility] Anti Nuclear Antibody Screen NEGATIVE NEGATIVE [facility] Comment:RODRIGO IFA is a first [...] clinicallysuspected inflammatory myopathies.AC-0: NegativeInternational Consensus on RODRIGO Patterns(https://doi.org/10.1515/tiwo-2198-3317)For additional information, please refer tohttp://education.M_SOLUTION/faq/EHL764(This link is being provided for informational/educational purposes only.)THIS TEST WAS PERFORMED AT:[employer] [address] [phone] VIGIL MD RODRIGO Titer TNP [facility] RODRIGO Pattern TNP [facility] RODRIGO TITER 2 (REF LAB) [facility]OD[facility] Pattern 2 TNP [facility] RODRIGO TITER 3 [facility] RODRIGO PATTERN 3 [facility] Blood Venous blood specimen / Unknown 12/04/2024 9:28 AM EDT 12/04/2024 9:28 AM EDT Rodrigo Lou MD LAB BLOOD ORDERABLES Fin al Result Performing Organization Address City/[facility]/ZIP Co de Phone Number [facility] [address] [place] [phone] * Uric acid (12/04/2024 9:28 AM EDT) Uric Acid 4.2 2.4 - 5.7 mg/dL [facility] Blood Venous blood specimen / Unknown 12/04/2024 9:28 AM EDT 12/04/2024 9:28 AM EDT Rodrigo Lou MD LAB BLOOD ORDERABLES Fin al Result Performing Organization Address [facility]/ZIP Co de Phone Number [facility] [address] [place] [phone] * XR Hip 2 or 3 Views Right (11/27/2024 1:10 PM EDT) Anatomical Region Laterality Modality Lower Extremities, Hip Right Radiograp hic Imaging 11/27/2024 1:10 PM EDT Narrative 11/27/2024 2:03 PM EDT [address] [address] XRay Report Signed Patient: Rodrigo Kennedy MR#: [id number] : 1965 Acct:[id number] Age/Sex: 59 / F ADM Date: 11/27/24 Loc: HO.XRAY Attending Dr: Rodrigo Lou MD Ordering Physician: Rodrigo Lou MD Date of Service: 11/27/24 Procedure(s): XR hip RT min 2V Accession Number(s): [id number] cc: Rodrigo Lou MD EXAMINATION: XR HIP, [...] 11/27/24 1400 DD/ 1310 TD/TT: 11/27/24 1323 Ear Flap Binder: Procedure Note Donotuseinterpreter, Image - 11/27/[address] [address] XRay Report Signed Patient: Rodrigo Kennedy LMR#: [id number] : 1965Acct:[id number] Age/Sex: 59 / FADM Date: 11/27/24 Loc: HO.SEAN Attending Dr: Rodrigo Lou MD Ordering Physician: Rodrigo Lou MD Date of Service: 11/27/24 Procedure(s): XR hip RT min 2V Accession Number(s): [id number] cc: Rodrigo Lou MD EXAMINATION: XR HIP, RIGHT CLINICAL INFORMATION: right hip pain COMPARISON: None available. TECHNIQUE: Two views of the right hip. FINDINGS: No fracture. Alignment is anatomic. Hip joint space is maintained. Soft tissues are unremarkable. XR/XR hip RT min 2V IMPRESSION: Normal right hip. Electronically signed by: Dante Hagan MD 11/27/2024 02:00 PM EDT Dictated By: Dante aHgan MD Signed By: <Electronically signed by Dante Hagan MD in OV> 11/27/24 1400 DD/ 1310 TD/TT: 11/27/24 1323 Ear Flap Binder: Rodrigo Lou MD IMG XR PROCEDURES Final [...] Most Recently Relevant to Health Maintenance Insurance [facility] , [address] [place] [address] Care Teams Provider Network Mgr Relationship Specialty Start Date End Date Rodrigo Lou MD [address] [place] [phone] PCP - General Family Medicine 03/14/16
--- OUTSIDE RECORDS SUMMARY | 2025-02-26 12:21 | XMS_ITS | Encounter Summary ---
Author Organization [id number] Address 75 [facility] 7 [place] [address] Care Team Providers Care Applied Psychology Teacher Name Role Phone Amara Lou MD Primary Care Provider + Reason for Visit * Reason Comments Med Refill Encounter Details Date Type Department Care Team ([facility] st Contact Info) Description 06/03/2024 Refill [facility] [address] [place], [place] [phone] Teri Kat CN [address] [place] [address] Social History Tobacco Use Types Packs/Day Years [...] documented in this encounter Plan of Treatment Not on file documented as of this encounter Visit Diagnoses Not on filedocumented in this encounter Care Teams Applied Psychology Teacher Relationship Specialty Start Date End Date Amara Lou MD [address] [place] [phone] PCP - General Family Medicine 03/14/16 documented as of this encounter
--- OUTSIDE RECORDS SUMMARY | 2025-02-26 12:21 | XMS_ITS | Encounter Summary ---
Author Organization [employer] Address 75 [facility] 7 [place] [address] Care Team Providers Care International Broadcast Music Librarian Name Role Phone Amara Lou MD Primary Care Provider + Encounter Details Date Type Department Care Team (Latest Contact Info) Description 06/19/2018 Abstract [facility] Dental, Provider, DDS Social [...] on filedocumented in this encounter Care Teams International Broadcast Music Librarian Relationship Specialty Start Date End Date Amara Lou MD [address] [place] [phone] PCP - General Family Medicine 03/14/16 documented as of this encounter
--- OUTSIDE RECORDS SUMMARY | 2025-02-26 12:21 | XMS_ITS | Encounter Summary ---
Author Organization [employer] Address 75 [facility] 7 [place] [address] Care Team Providers Care Dolly Pusher Name Role Phone Amara Lou MD Primary Care Provider + Reason for Visit * Reason Comments Med Refill Encounter Details Date Type Department Care Team ([facility] st Contact Info) Description 12/23/2022 Refill [facility] [address] [place], [place] [phone] Amara Lou MD [address] [place] [address] Vertigo Social History Tobacco Use Types Packs/Day [...] giddiness documented in this encounter Care Teams Dolly Pusher Relationship Specialty Start Date End Date Amara Lou MD [address] [place] [address] PCP - General Family Medicine 03/14/16 documented as of this encounter
--- OUTSIDE RECORDS SUMMARY | 2025-02-26 12:21 | XMS_ITS | Encounter Summary ---
Author Organization [employer] Address [address] [facility] [address] 7[address] [place] [address] Care Team Providers Care Hr Director Name Role Phone Amara Lou MD Primary Care Provider + Encounter Details Date Type Department Care Team ([facility] st Contact Info) Description 05/04/2022 Abstract [facility] D[facility] [address] [place] [address] Dental, Provider, DDS Social History Tobacco Use [...] AM EST 4 MOD COMPOSITE FILLING Routine 05/04/20 12:00 AM EST 5 DO COMPOSITE FILLING Routine 12:00 AM EST 7 L COMPOSITE FILLING Routine 05/04/2022 12:00 AM EST 10 L COMPOSITE FILLING Routine 12:00 AM EST 12 DO COMPOSITE FILLING Routine 05/04/20 12:00 AM EST 13 MO COMPOSITE FILLING Routine 05/04/20 12:00 AM EST 14 DOL COMPOSITE FILLING Routine 022 12:00 AM EST 18 B COMPOSITE FILLING Routine 12:00 AM EST 21 O COMPOSITE FILLING [...] AM EST 15 MOL AMALGAM FILLING Routine 12:00 AM EST 2 MOL AMALGAM FILLING [...] on filedocumented in this encounter Care Teams Hr Director Relationship Specialty Start Date End Date Amara Lou MD [address] [place] [phone] PCP - General Family Medicine 03/14/16 documented as of this encounter
--- OUTSIDE RECORDS SUMMARY | 2025-02-26 12:21 | XMS_ITS | Encounter Summary ---
Author Organization [employer] Address 75 [facility] 7 [place] [address] Care Team Providers Care Tube Laser Operator Name Role Phone Amara Lou MD Primary Care Provider + Reason for Visit * Reason Comments Med Refill Encounter Details Date Type Department Care Team ([facility] st Contact Info) Description 11/04/2022 Refill [facility] MED[facility]INE [address] [place] [address] Amara Lou MD 230 [place] [address] Vertigo Social History Tobacco Use Types Packs/Day [...] giddiness documented in this encounter Care Teams Tube Laser Operator Relationship Specialty Start Date End Date Amara Lou MD [address] [place] [address] PCP - General Family Medicine 03/14/16 documented as of this encounter
--- OUTSIDE RECORDS SUMMARY | 2025-02-26 12:21 | XMS_ITS | Encounter Summary ---
Author Organization [employer] Address [address] [facility] 7t [place] [address] Care Team Providers Care Allergist Name Role Phone Amara Lou MD Primary Care Provider + Reason for Visit * Reason Comments Med Refill Encounter Details Date Type Department Care Team ([facility] st Contact Info) Description 09/06/2023 Refill [facility] OPTOMETRY [address] [place], [place] [phone] Garrett, Jaqueline, OD [address] [place] [address] Social History Tobacco Use Types Packs/Day Years [...] on filedocumented in this encounter Care Teams Allergist Relationship Specialty Start Date End Date Amara Lou MD [address] [place] [phone] PCP - General Family Medicine 03/14/16 documented as of this encounter
== END 2025-02-26 10:44 | disposition home or self-care (01) ==
LOC: HO.HGI 10:10
PROVIDERS: PCP Internal Medicine; Visit Provider Internal Medicine
DX: R14.0 Abdominal distension (gaseous) (principal); R10.13 Epigastric pain
CPT/HCPCS: 99499

== ENCOUNTER 2025-03-27 06:17 | Day surgery (SDC) | payer OTHER, SELFPAY ==
--- OUTSIDE RECORDS SUMMARY | 2025-03-05 15:08 | XMS_ITS | Encounter Summary ---
Author Organization [employer] Address 75 [facility] 7 [place] [address] Care Team Providers Care Tube Builder Name Role Phone Amara Lou MD Primary [...] on filedocumented in this encounter Care Teams Tube Builder Relationship Specialty Start Date End Date Amara Lou MD [address] [place] [phone] PCP - General Family Medicine 03/14/16 documented as of this encounter
--- OUTSIDE RECORDS SUMMARY | 2025-03-05 15:08 | XMS_ITS | Encounter Summary ---
Author Organization [employer] Address 75 [facility] 7 [place] [address] Care Team Providers Care Gas Dispenser Name Role Phone Amara Lou MD Primary [...] on filedocumented in this encounter Care Teams Gas Dispenser Relationship Specialty Start Date End Date Amara Lou MD [address] [place] [phone] PCP - General Family Medicine 03/14/16 documented as of this encounter
--- OUTSIDE RECORDS SUMMARY | 2025-03-05 15:08 | XMS_ITS | Clinical Summary ---
Author Organization [employer] Address 75 [facility] 7t [place] [address] Care Team Providers Care Sales Officer Name Role Phone Rodrigo Lou MD Primary Care Provider + Allergies Active Allergy Reactions Criticality Noted Date Comments Clarithromycin High 08/28/2014 Monosodium Glutamate 07/21/2017 Sanders Oil 08/13/2020 Tilactase 08/13/2020 Medications zoster vaccine, live, (Zostavax) 85063 UNT/0.65ML injection inject 0.65 milliliter by subcutaneous [...] She tells me she has appointment with PAPER INSPECTOR (matrix supervisor Flakita Yu) in few weeks. Increase Lexapro [...] have breast cancer) and also verified with PAPER INSPECTOR if her breast lesions are not a contraindication for HRT (I believe they are not, but according to patient they told her there are premalignant lesions?). She will continue on vaginal estrogen cream for dyspareunia I will refer her to pelvic floor physical therapy at the [address] [place] [address] in [place] I will treat anxiety and follow-up with her in 6 weeks Assessment & Plan (01/08/2024 10:23 AM EDT): On estrogen cream by PAPER INSPECTOR Advised to discuss systemic HRT instead due [...] exacerbation of arthralgias. Advised to discuss with PAPER INSPECTOR re oral HRT, has ? Hx breast [...] improve with HRT she will fu with PAPER INSPECTOR Assessment & Plan (11/24/2022 2:53 PM EDT): [...] up to date, obtain last report from [facility] PAPER INSPECTOR Mammogram: Reportedly up to date[facility] Bone density test: N/A, due at age 67 Eye exam: Up to date, next one due on 11/2024 CRC screen: Obtain report form [facility] and fu at next appt Lipids/FBS: [...] menopausal treatment, (she wants to follow-up with matrix supervisor for this, see above) Will add hydroxyzine [...] of? Breast cancer, she should follow-up with PAPER INSPECTOR Primary osteoarthritis of both knees 05/04/2022 Assessment [...] for menopausal symptoms, she will follow-up with matrix supervisor and with me in 3 months. Contact [...] make sure that there is no other PAPER INSPECTOR pathology before I start HRT. She agreed with the POC. We will try to obtain 2021 pap smear and mammorgam from [facility], pt has appointment with PAPER INSPECTOR in February. FU in 2mo Assessment & Plan (11/24/2022 3:04 PM EDT): May be a candidate for HRT, I told her to fu with her PAPER INSPECTOR. Order labs to evaluate CV RF, dayami [...] Encounters Date Type Department Care Team Description 02/26/2025 Orders Only GENERIC EXTERNAL DATA DEPARTMENT Provider, Generic External Data 02/18/2025 9:00 AM EDT Office Visit [facility] [address] [place] [address] Rodrigo Lou MD Anxiety (Primary Dx); Arthralgia of both hands; Dumping syndrome; Menopause syndrome; Mass of breast, unspecified laterality; Allergic contact dermatitis, unspecified trigger; Postprandial bloating; Mild intermittent asthma without complication 02/18/2025 Travel 02/17/[address] [address] Rodrigo Lou MD chart prep 02/17/2025 Travel 02/12/2025 Orders Only GENERIC EXTERNAL DATA DEPARTMENT Provider, Generic External Data 02/07/2025 Patient Outreach [address] [address] Rodrigo Lou MD Pre-visit Planning (SDOH screening completed on 12/05/2024) 12/25/[address] [address] Rodrigo Lou MD 12/12/2024 Results Follow-Up [address] [address] Teri Kat, CNM Testosterone, Total, males (Adult), [place] 12/11/[address] [address] Rodrigo Lou MD 12/05/2024 9:45 AM EDT Office Visit [address] [address] Rodrigo Lou MD Encounter for preventive health examination (Primary Dx); Hypercholesterolemia ; Polyarthropathy; Anxiety disorder, transient organic 12/05/2024 Travel 12/04/[address] [address] Rodrigo Lou MD chart prep 12/03/2024 Results Follow-Up [address] [address] Rodrigo Lou MD XR Hip 2 or 3 Views Right from Last 3 Months Immunizations Immunization Administration [...] your housing situation today? I have sharla douglas 12/05/[address] you li [...] Procedure Name Priority Date/Time Associated Diagnosis Comments HELICOBACTER PYLORI, UREA BREATH TEST Routine 02/26/2025 10:45 AM EDT TISSUE TRANSGLUTAMINASE AB, IGA Routine 02/12/2025 2:06 [...] AM EDT Primary osteoarthritis of both knees HM PAP/HPV Routine 02/15/2023 HM COLONOSCOPY Routine 03/19/2021 7:46 AM EDT PROPHYLAXIS - ADULT Routine 08/13/2020 1 2:00 AM EST INTRAORAL - COMPLETE SERIES OF RADIOGRAPHIC IMAGES Routine 08/13/2020 12:00 AM EST PERIODIC ORAL EVALUATION - ESTABLISHED PATIENT Routine 08/13/2020 12:00 AM EST from Last 3 Months or Most Recently Relevant to Health Maintenance Results * Helicobacter pylori, Urea Breath Test (02/26/2025 10:45 AM EDT) H. pylori Breath Test Negative Negative [facility] Comment:Antimicrobials, prot on pump inhibitors and bismuthpreparations are known to suppress H. pylori. Ingestingthese medications within two weeks prior to performing thebreath test may produce negative test results. A positiveresult is still clinically valid. 02/26/2025 10:4 5 AM EDT 02/26/2025 6:42 PM EDT Generic External Data Provider LAB BODY FLUIDS A ND STOOLS ORDERABLES Final Result Performing Organization Address [facility] Co de Phone Number [facility] [address] [place] [phone] * TSH with Reflex to Free T4 (02/12/2025 2:06 PM EDT) Only the most recent of2 resultswithin the time period is included. TSH reflex Free T4 1.50 0.32 - 4.0 uIU/mL [facility] 02/12/2025 2:06 PM EDT 02/12/2025 4:17 PM EDT Generic External Data Provider LAB BLOOD ORDERAB LES Final Result Performing Organization Address [facility] Co de Phone Number [facility] [address] [place] [phone] * Tissue Transglutaminase Antibody, IgA (02/12/2025 2:06 PM EDT) Transglutaminase IgA <1.0 U/mL [facility] Comment:Value Interpretation ----- <15.0 Antibody not detected> or = 15.0 Antibody detectedTHIS TEST WAS PERFORMED AT:[email or web address] [place] [phone] VIGIL MD 02/12/2025 2:06 PM EDT 02/12/2025 4:17 PM EDT Generic External Data Provider LAB BLOOD ORDERAB LES Final Result Performing Organization Address [facility] Co de Phone Number [facility] [address] [place] [phone] * Immunoglobulin A (02/12/2025 2:06 PM EDT) Immunoglobulin A, Qn, Serum 143 47 - 310 mg/dL [facility] Comment:THIS TEST WAS PERFOR MED AT:[email or web address] [place] [phone] VIGIL MD 02/12/2025 2:06 PM EDT 02/12/2025 4:17 PM EDT us Generic External Data Provider LAB BLOOD ORDERAB LES Final Result [facility] [address] [place] [phone] [phone] * (ABNORMAL) Vitamin D, 25-Hydroxy, Total, Immunoassay (12/04/2024 9:28 AM EDT) Vitamin D 25-OH Total 29.3(L) >30 ng/mL [facility] Comment: Health Based Reference Values*< 20 ng/mL Ffzgmsikd22-11 ng/mL Insufficient> 30 ng/mL Sufficient*Coy HERNANDEZ. N [...] ORDERABLES Fin al Result Performing Organization Address [facility] Co de Phone Number [facility] [address] [place] [address] [phone] * (ABNORMAL) Lipid Panel with Reflex to Direct LDL (12/04/2024 9:28 AM EDT) Triglycerides 46 <150 mg/dL [facility] Comment:Desirable Triglyceri de: less than 150 mg/dLBorderline High Triglyceride 150-199 mg/dLHigh Triglyceride: 200-499 mg/dLVery High Triglyceride: greater than or equal to 5OO mg/dL Cholesterol 213(H) <200 mg/dL [facility] Comment:Desirable Cholestero l: less than 200 mg/dLBorderline High Cholesterol: 200-239 mg/dLHigh Cholesterol: greater than 239 mg/dL LDL Cholesterol Calculated 121(H) <100 mg/dL [facility] Comment:Desirable LDL: less than 100 mg/dLNear Optimal/Above Optimal LDL: 110- 129 mg/dLBorderline High LDL: 130-159 mg/dLHigh LDL: 160-189 mg/dLVery High LDL: greater than or equal to 190 mg/dL HDL Cholesterol 83 >40 mg/dL [facility] Comment:Desirable HDL: great er than 40 mg/dL Note: This HDL assay may give artificially low results in patients with liver disease. Blood 12/04/2024 9:28 AM EDT 12/04/2024 9:28 AM EDT us Rodrigo Lou MD LAB BLOOD ORDERABLES Fin al Result Performing Organization Address [facility] Co de Phone Number [facility] [address] [place] [phone] * Hepatitis Panel, General (12/04/2024 9:28 AM EDT) Hepatitis A IgM Nonreactive Nonreactive [facility] Comment:IgM antibodies to MCDUFFIE V not detected; does not exclude earlyacute or recovered HAV infection. ~Hepatitis B Surface Antibody REACTIVE Nonreactive [facility] Comment:REACTIVE: > 11.99 mI U/mL Hepatitis B Core Antibody Nonreactive Nonreactive [facility] Hepatitis C Antibody Nonreactive Nonreactive [facility] Comment:Antibodies to HCV no t detected; does not exclude early acuteHCV infection. Hepatitis B Surface Ag Negative Negative [facility] Blood 12/04/2024 9:28 AM EDT 12/04/2024 9:28 AM EDT us Rodrigo Lou MD LAB BLOOD ORDERABLES Fin al Result [facility] [address] [place] [phone] [phone] * CBC auto differential (12/04/2024 9:28 AM EDT) White Blood Count 4.8 4.8 - 10.8 X10*3/uL [facility] Red Blood Count 4.38 4.20 - 5.50 X10*6/uL [facility] Hemoglobin 13.2 12.0 - 16.0 g/dl [facility] Hematocrit 40.2 37.0 - 47.0 % [facility] Mean Corpuscular Volume 91.8 80.0 - 98.0 fL [facility] Mean Corpuscular Hemoglobin 30.1 27.0 - 33.0 pg [facility] Mean Corpuscular HGB Conc 32.8 31.0 - 35.0 g/dl [facility] Red Cell Distribution Width 14.2 11.0 - 16.0 % [facility] Platelet Count 204 160 - 400 X10*3/uL [facility] Mean Platelet Volume 10.3 9.4 - 12.3 fL [facility] Neutrophils Percent Auto 53.3 45 - 73 % [facility] Imm Gran Pct Auto 0.4 0.0 - 0.4 % [facility] Lymphocytes Percent Auto 34.9 20 - 40 % [facility] Monocytes Percent Auto 6.1 2 - 11 % [facility] Eosinophils Percent Auto 3.6 0 - 4 % [facility] Basophils Percent Auto 1.7 0 - 2 % [facility] NRBC Pct Auto 0.0 0.0 - 0.2 /100WBC [facility] Neutrophils Absolute Auto 2.5 2.0 - 8.3 x10*3/uL [facility] Imm Gran Abs Auto 0.02 0.00 - 0.03 X10*3/uL [facility] Lymphocytes Absolute Auto 1.7 1.2 - 4.9 X10*3/uL [facility] Monocytes Absolute Auto 0.3 0.1 - 1.2 X10*3/uL [facility] Eosinophils Absolute Auto 0.2 0.0 - 0.4 X10*3/uL [facility] Basophils Absolute Auto 0.1 0.0 - 0.2 X10*3/uL [facility] NRBC Abs Auto 0.000 0.0 - 0.012 X10*3/uL [facility] Blood Venous blood specimen / Unknown 12/04/2024 9:28 AM EDT 12/04/2024 9:28 AM EDT Rodrigo Lou MD LAB BLOOD ORDERABLES Fin al Result [facility] [address] [place] [address] [phone] * Sed Rate by Modified Payal (12/04/2024 9:28 AM EDT) Erythrocyte Sedimentation Rate 9 0 - 20 MM/HR [facility] Comment:Patients with polycy themia and many hemoglobin abnormalitiesmay have depressed sed rates whereas patients with anemiamay have elevated sed rates. Blood Venous blood specimen / Unknown 12/04/2024 9:28 AM EDT 12/04/2024 9:28 AM EDT us Rodrigo Lou MD LAB BLOOD ORDERABLES Fin al Result Performing Organization Address [facility] Co de Phone Number [facility] [address] [place] [phone] * Rheumatoid Factor (12/04/2024 9:28 AM EDT) Pathologist [facility] Rheumatoid Factor <13.0 <15.0 IU/mL [facility] Blood Venous blood specimen / Unknown 12/04/2024 9:28 AM EDT 12/04/2024 9:28 AM EDT Rodrigo Lou MD LAB BLOOD ORDERABLES Fin al Result Performing Organization Address [facility] Co de Phone Number [facility] [address] [place] [phone] * C-reactive Protein (12/04/2024 9:28 AM EDT) Pathologist [facility] C Reactive Protein 0.46 < or = 0.50 mg/dL [facility] Blood Venous blood specimen / Unknown 12/04/2024 9:28 AM EDT 12/04/2024 9:28 AM EDT Rodrigo Lou MD LAB BLOOD ORDERABLES Fin al Result Performing Organization Address [facility] Co de Phone Number [facility] [address] [place] [phone] * RODRIGO Screen,IFA, with Reflex to Titer and Pattern (12/04/2024 9:28 AM EDT) Anti Nuclear Antibody Screen NEGATIVE NEGATIVE [facility] Comment:RODRIGO IFA is a first l [...] clinicallysuspected inflammatory myopathies.AC-0: NegativeInternational Consensus on RODRIGO Patterns(https://doi.org/10.1515/wufv-4766-5303)For additional information, please refer tohttp://education.Spruceling/faq/EJB589(This link is being provided for informational/educational purposes only.)THIS TEST WAS PERFORMED AT:[email or web address] [place] [phone] VIGIL MD RODRIGO Titer TNP [facility] RODRIGO Pattern TNP [facility] RODRIGO TITER 2 (REF LAB) [facility] RODRIGO TITER 3 [facility] RODRIGO PATTERN 3 [facility] Blood Venous blood specimen / Unknown 12/04/2024 9:28 AM EDT 12/04/2024 9:28 AM EDT us Rodrigo Lou MD LAB BLOOD ORDERABLES Fin al Result Performing Organization Address City/[facility]/ZIP Co de Phone Number [facility] [address] [place] [phone] * Uric acid (12/04/2024 9:28 AM EDT) Uric Acid 4.2 2.4 - 5.7 mg/dL [facility] Blood Venous blood specimen / Unknown 12/04/2024 9:28 AM EDT 12/04/2024 9:28 AM EDT Rodrigo Lou MD LAB BLOOD ORDERABLES Fin al Result Performing Organization Address City/[facility]/ZIP Co de Phone Number [facility] [address] [place] [phone] * Hm Pap Smear (02/15/2023) Pap Negative for intraephithelial lesion or malignancy Negative for intraephithelial lesion or malignancy, Other HPV Not Detected Undetected, Indeterminate, Quantitative, Not Detected us Historical Provider HEALTH MAINTENANCE Final Result * Hm Colonoscopy (03/19/2021 7:46 AM EDT) us Historical Provider HEALTH MAINTENANCE Final Result from Last 3 Months or Most Recently Relevant to Health Maintenance Insurance [facility] , [address] [place] [address] Care Teams Sales Officer Relationship Specialty Start Date End Date Rodrigo Lou MD [address] [place] [phone] PCP - General Family Medicine 03/14/16
--- OUTSIDE RECORDS SUMMARY | 2025-03-05 15:08 | XMS_ITS | Encounter Summary ---
Author Organization [employer] Address [address] [facility] [address] 7[address] [place] [address] Care Team Providers Care Aircraft Machinist Name Role Phone Amara Lou MD Primary Care Provider + Reason for Visit * Reason Comments Med Refill Encounter Details Date Type Department Care Team ([facility] st Contact Info) Description 09/06/2023 Refill [facility] OPTOMETRY [address] [place], [place] [phone] Garrett, Jaqueline, OD [address] [place] [address] Social History Tobacco Use Types Packs/Day Years [...] on filedocumented in this encounter Care Teams Aircraft Machinist Relationship Specialty Start Date End Date Amara Lou MD [address] [place] [phone] PCP - General Family Medicine 03/14/16 documented as of this encounter
--- OUTSIDE RECORDS SUMMARY | 2025-03-05 15:08 | XMS_ITS | Encounter Summary ---
Author Organization [employer] Address [address] [facility] [address] 7[address] [place] [address] Care Team Providers Care Seamer Operator Name Role Phone Amara Lou MD Primary Care Provider + Encounter Details Date Type Department Care Team ([facility] st Contact Info) Description 05/04/2022 Abstract [facility] ADULT DENTAL [address] [place] [address] Dental, Provider, DDS Social History Tobacco Use [...] on filedocumented in this encounter Care Teams Seamer Operator Relationship Specialty Start Date End Date Amara Lou MD [address] [place] [phone] PCP - General Family Medicine 03/14/16 documented as of this encounter
--- OUTSIDE RECORDS SUMMARY | 2025-03-05 15:08 | XMS_ITS | Encounter Summary ---
Author Organization [employer] Address [address] [facility] 7 [place] [address] Care Team Providers Care Restoration Silversmith Name Role Phone Amara Lou MD Primary Care Provider + Reason for Visit * Reason Comments Med Refill Encounter Details Date Type Department Care Team ([facility] st Contact Info) Description 11/04/2022 Refill [facility] MEDICINE 230 [place] [address] Amara Lou MD 230 [place] [address] Vertigo Social History Tobacco Use Types Packs/Day [...] giddiness documented in this encounter Care Teams Restoration Silversmith Relationship Specialty Start Date End Date Amara Lou MD [address] [place] [address] PCP - General Family Medicine 03/14/16 documented as of this encounter
--- OUTSIDE RECORDS SUMMARY | 2025-03-05 15:08 | XMS_ITS | Encounter Summary ---
Author Organization [employer] Address [address] [facility] 7 [place] [address] Care Team Providers Care Slope Runner Name Role Phone Amara Lou MD Primary [...] on filedocumented in this encounter Care Teams Slope Runner Relationship Specialty Start Date End Date Amara Lou MD [address] [place] [address] PCP - General Family Medicine 03/14/16 documented as of this encounter
--- OUTSIDE RECORDS SUMMARY | 2025-03-05 15:08 | XMS_ITS | Encounter Summary ---
Author Organization [employer] Address [address] [facility] [address] 7[address] [place] [address] Care Team Providers Care Master Ocean Yacht Name Role Phone Amara Lou MD Primary Care Provider + Encounter Details Date Type Department Care Team ([facility] st Contact Info) Description 11/08/2023 Orders Only [facility] MEDICINE 230 [place] [address] ProviderAnastasiya MD Social History Tobacco Use Types [...] on filedocumented in this encounter Care Teams Master Ocean Yacht Relationship Specialty Start Date End Date Amara Lou MD [address] [place] [phone] PCP - General Family Medicine 03/14/16 documented as of this encounter
--- OUTSIDE RECORDS SUMMARY | 2025-03-05 15:08 | XMS_ITS | Encounter Summary ---
Author Organization [employer] Address [address] [facility] 7 [place] [address] Care Team Providers Care Asian Studies Program Chair Name Role Phone Amara Lou MD Primary Care Provider + Reason for Visit * Reason Comments Med Refill Encounter Details Date Type Department Care Team ([facility] st Contact Info) Description 12/23/2022 Refill [facility] MEDICINE 230 [place], [place] [phone] Amara Lou MD [address] [place] [address] Vertigo Social History Tobacco Use Types Packs/Day [...] giddiness documented in this encounter Care Teams Asian Studies Program Chair Relationship Specialty Start Date End Date Amara Lou MD [address] [place] [address] PCP - General Family Medicine 03/14/16 documented as of this encounter
--- OUTSIDE RECORDS SUMMARY | 2025-03-05 15:09 | XMS_ITS | Encounter Summary ---
Author Organization [employer] Address [address] [facility] 7 [place] [address] Care Team Providers Care Online Tutor Name Role Phone Amara Lou MD Primary Care Provider + Reason for Visit * Reason Comments Med Refill Encounter Details Date Type Department Care Team ([facility] st Contact Info) Description 06/03/2024 Refill [facility] MEDICINE [address] [place], [place] [phone] Teri Kat CN [address] [place] [address] Social History Tobacco Use Types Packs/Day Years [...] on filedocumented in this encounter Care Teams Online Tutor Relationship Specialty Start Date End Date Amara Lou MD [address] [place] [phone] PCP - General Family Medicine 03/14/16 documented as of this encounter
--- NOTE | 2025-03-25 10:40 | HO.ANESPROP2 ---
Documented by User: Aviva Teran NP 03/25/25 10:41 HPI - Anesthesia Eval Consult details Narrative: 60 yr old female for upper endoscopy [facility] Active Problems Active Problems: All Active Problems (Updated 02/05/25 @ 15:36 by Larisa Tony MD) History of partial gastrectomy (Acute) Abdominal bloating (Acute) Postprandial epigastric pain (Acute) Chronic serous OM (otitis media) (Acute) Herpes labialis (Acute) Vertigo (Acute) Depression with anxiety (Acute) Chronic pain of left knee (Acute) Chronic low back pain (Acute) POTS (postural orthostatic tachycardia syndrome) (Acute) Allergic rhinitis (Acute) Asthma (Acute) Past Medical History Medical History (Updated 03/27/25 @ 06:52 by Margaret Elam, ALBERTO) Anxiety Depression History of gastric ulcer Prolapsed external hemorrhoids Surgical History Surgical History (Updated 03/27/25 @ 06:43 by Margaret Elam, ALBERTO) Hx of esophagogastroduodenoscopy Hx of colonoscopy (~2019) Hx of section History of partial gastrectomy Social History Social History (Updated 02/05/25 @ 15:10 by April Wyatt) Household Members: Family Alcohol intake: never Patient Tobacco Use Status: Never used Tobacco Are you DNR?: No Advance Directives: No Advance Directives Information Provided: Yes Meds Allergies Allergy/AdvReac Type Severity Reaction Status Date / Time clarithromycin Allergy Intermediate INSOMNIA Verified 02/05/25 15:06 (CLARITHROMYCIN) Home Medications ?Medication ?Instructions ?Recorded ?Confirmed ?Last Taken ?Type escitalopram oxalate 5 mg tablet 5 mg PO DAILY 02/05/25 03/27/25 03/27/25 History magnesium aspart,citrate,oxide 1 mg PO DAILY 02/05/25 03/27/25 03/27/25 History Anti-Heartburn Ex-Str 1 mg PO TID 03/27/25 03/27/25 03/27/25 History albuterol sulfate 90 mcg/actuation 2 puff inhalation Q4H PRN Wheezing 03/27/25 03/27/25 03/27/20 History aerosol inhaler esomeprazole magnesium 20 mg 20 mg PO DAILY 03/27/25 03/27/25 03/27/25 History capsule,delayed release (Nexium) loratadine 10 mg tablet (Claritin) 10 mg PO DAILY 03/27/25 03/27/2503/27/25 History Documented by User: Flakita Estrada MD 03/27/25 07:10 PMF Past Medical History Medical History (Updated 03/27/25 @ 06:52 by Margaret Elam, ALBERTO) Anxiety Depression History of gastric ulcer Prolapsed external hemorrhoids Family History Family history of problems with anesthesia: No Surgical History Surgical History (Updated 03/27/25 @ 06:43 by Margaret Elam RN) Hx of esophagogastroduodenoscopy Hx of colonoscopy (~2019) Hx of section History of partial gastrectomy History of Problems with Anesthesia: No Social History Social History (Updated 02/05/25 @ 15:10 by April Wyatt) Household Members: Family Alcohol intake: never Patient Tobacco Use Status: Never used Tobacco Are you DNR?: No Advance Directives: No Advance Directives Information Provided: Yes Meds Allergies Allergy/AdvReac Type Severity Reaction Status Date / Time clarithromycin Allergy Intermediate INSOMNIA Verified 02/05/25 15:06 (CLARITHROMYCIN) Home Medications ?Medication ?Instructions ?Recorded ?Confirmed ?Last Taken ?Type escitalopram oxalate 5 mg tablet 5 mg PO DAILY 02/05/25 03/27/25 03/27/25 History magnesium aspart,citrate,oxide 1 mg PO DAILY 02/05/25 03/27/25 03/27/25 History Anti-Heartburn Ex-Str 1 mg PO TID 03/27/25 03/27/25 03/27/25 History albuterol sulfate 90 mcg/actuation 2 puff inhalation Q4H PRN Wheezing 03/27/25 03/27/25 03/27/20 History aerosol inhaler esomeprazole magnesium 20 mg 20 mg PO DAILY 03/27/25 03/27/25 03/27/25 History capsule,delayed release (Nexium) loratadine 10 mg tablet (Claritin) 10 mg PO DAILY 03/27/25 03/27/25 03/27/25 History Exam Airway Mallampati Class: II (2 caps laterally) TM Dist: >3cm Neck ROM: Full Heart: rrr Lungs: cta Assessment and Plan Assessment Anesthesia Assessment: Anesthesia Plan Discussed Final Anesthetic Review Family History of Problems with Anesthesia: No History of Problems with Anesthesia: No NPO: Yes ASA Class: II Final Preanesthetic Review: No Changes in Pt Med Stat, Meds/Allgs Chart Reviewed, Consent Obtained/Reviewed and Anes Risks/Benef Reviewed Patient Risk: Low Procedure Risk: Intermediate Anesthetic Plan Anesthetic Plan: MAC: Disposition: Standard PACU
[2025-03-25 11:33] VITALS: BMI 24.8
[2025-03-27 06:33] VITALS: BP 123/66; PULSE 73; RESP 16; TEMP 36.3; O2SAT 97; BMI 24.4
[2025-03-27] MEDS: Lactated Ringers 1,000 ML 100 ML IVCONT (07:02)
--- NOTE | 2025-03-27 07:44 | MHC.SHP ---
Pre-Procedural Eval Section A - 24 Hr Update-Section A only Date of Service: 03/27/25 Section B - Complete if H&P > 30 days Chief Complaint: Hx of gastric ulcer, abd pain Details of Present Illness: History of gastric ulcer Prolapsed external hemorrhoids Surgical History (Updated 02/05/25 @ 17:11 by Larisa Tony MD) Hx of section History of partial gastrectomy Present Medications: see Short Stay Collaborative assessment Allergies: Allergies Allergy/AdvReac Type Severity Reaction Status Date / Time clarithromycin Allergy Intermediate INSOMNIA Verified 02/05/25 15:06 (CLARITHROMYCIN) Review of Systems Review of Systems Comment: 10 point ROS negative Exam Exam Comment: Gen appear: No acute distress HEENT: no icterus Chest: No overt resp distress Abd: soft, nontender, nondistended Psych: Stable affect, answering questions appropriately Neuro: A/Ox3 noted to move all extremities spontaneously Ext: no peripheral edema Plan Diagnosis/Plan: Unchanged I have reviewed the history and physical and performed a pertinent physical examination on my patient. No changes have occurred unless specified. Time Spent With Patient Time: Total time managing care of this patient today ____ minutes.
--- NOTE | 2025-03-27 08:03 | P.OP_ITS ---
Operative Note Operative Note Date of Service: 03/27/25 Narrative: Procedure: Esophagogastroduodenoscopy Endoscopist: Larisa Tony MD Indication: Abd pain, GERD, hx of gastric ulcer Anesthesia Provider: Idalia Ellsworth CRNA Anesthesia Type: MAC ?? EGD Procedure:?? The procedure, indications, preparation and potential complications were reviewed with the patient, who indicated understanding and gave written informed consent to proceed. A physical exam was performed. The endoscope was introduced through the mouth, and advanced to the second part of duodenum. The mucosa was carefully examined on slow withdrawal of the endoscope. The patient tolerated the procedure well. There were no immediate complications.? ? EGD Findings:? * Esophagus:? Normal mucosa noted in the entire esophagus. The Z line was at 35 cm and irregular up to 34 cm. Middle esophagus and GE junction forceps biopsies were obtained. * Stomach:? Normal mucosa was noted in the stomach. Retroflexion was vomiting the cardia. Cold forceps gastric body and antrum biopsies were obtained. * Duodenum:? Normal mucosa was noted in the whole of the examined duodenum. Cold forceps biopsies were taken from duodenal bulb and second portion of the duodenum. ? EGD Impressions:? * Irregular Z line (biopsy) * Normal stomach (biopsy) * Normal duodenum (biopsy) ?? Recommendations:?? * Follow biopsy results. Our office will call or send a letter with results within 7-10 days. * No obvious esophagitis noted today. Can consider Jaffe testing OFF ppi based on results of bx and UGIS. * Cont PPI for now * If H pylori +, patient will be prescribed eradication therapy followed by test of cure. * Avoid NSAIDs. Above has been reviewed with the patient.
[2025-03-27 08:05] VITALS: BP 110/65; PULSE 79; RESP 16; TEMP 37; O2SAT 97
[2025-03-27 08:20] VITALS: BP 124/73; PULSE 69; RESP 18; TEMP 36.3; O2SAT 98
== END 2025-03-27 08:34 | disposition home or self-care (01) ==
PROVIDERS: PCP Internal Medicine; Visit Provider Internal Medicine
PROC: 0DJ08ZZ Inspection of Upper Intestinal Tract, Via Natural or Artificial Opening Endoscopic (ICD-10-PCS; CPT 43235; principal; 2025-03-27 07:30)
DX: R10.13 Epigastric pain (principal); K21.9 Gastro-esophageal reflux disease without esophagitis; R14.0 Abdominal distension (gaseous); K31.A11 Gastric intestinal metaplasia without dysplasia, involving the antrum; K22.89 Other specified disease of esophagus; Z87.11 Personal history of peptic ulcer disease; K64.4 Residual hemorrhoidal skin tags; Z90.3 Acquired absence of stomach [part of]; J45.909 Unspecified asthma, uncomplicated; Z79.899 Other long term (current) drug therapy; Z88.1 Allergy status to other antibiotic agents
CPT/HCPCS: 43239; 88305; 88313; 88342; J2003; J2405; J2704

== ENCOUNTER → 2025-03-27 06:17 | Outpatient (BNV) | payer OTHER, SELFPAY | PROVIDERS: PCP Internal Medicine; Visit Provider Internal Medicine | DX: R10.9 Unspecified abdominal pain (principal); K21.9 Gastro-esophageal reflux disease without esophagitis; K22.89 Other specified disease of esophagus | CPT/HCPCS: 43239 ==

== ENCOUNTER 2025-03-31 08:22 | Outpatient (REF) | payer OTHER, SELFPAY ==
--- NOTE | ~2025-03-31 | US_ITS ---
CLINICAL HISTORY: R10.13 - Epigastric pain US abdomen complete with color Doppler Comparison: None Findings: The visualized pancreas, aorta, and inferior vena cava are unremarkable. Liver normal size and mildly echogenic throughout. Right lobe 11.9 cm length. No focal hepatic masses. Common duct 5.0 mm diameter. Physiologic distention of the gallbladder. No gallstones or sludge. No gallbladder wall thickening. No pericholecystic fluid. No sonographic Cardenas sign. Main portal vein antegrade. Right kidney normal size, 8.5 cm in length. Normal cortical width and echotexture. No solid or cystic renal masses. No nephrolithiasis. No hydronephrosis. Left kidney normal, 9.7 cm in length. Normal cortical width and echotexture. No solid or cystic renal masses. No nephrolithiasis. No hydronephrosis. Spleen measures 9.1 cm. No splenic masses. No ascites. No lymphadenopathy. Impression: 1. Hepatic steatosis 2. Normal gallbladder. 3. Normal sonographic appearance of the pancreas This document has been electronically signed by: Terry Keita MD on 04/01/2025 12:12:51
--- OUTSIDE RECORDS SUMMARY | 2025-03-31 08:44 | XMS_ITS | Encounter Summary ---
Author Organization [employer] Address [address] [facility] 7 [place] [address] Care Team Providers Care Dba Manager Name Role Phone Amara Lou MD Primary Care Provider + Reason for Visit * Reason Comments Med Refill Encounter Details Date Type Department Care Team ([facility] st Contact Info) Description 12/23/2022 Refill [facility] MEDICINE 230 [place], [place] [phone] Amara Lou MD 230 [place] [address] Vertigo Social History Tobacco Use Types Packs/Day [...] giddiness documented in this encounter Care Teams Dba Manager Relationship Specialty Start Date End Date Amara Lou MD [address] [place] [address] PCP - General Family Medicine 03/14/16 documented as of this encounter
--- OUTSIDE RECORDS SUMMARY | 2025-03-31 08:44 | XMS_ITS | Encounter Summary ---
Author Organization [employer] Address [address] [facility] [address] 7[address] [place] [address] Care Team Providers Care Bank Teller Machine Mechanic Name Role Phone Amara Lou MD Primary Care Provider + Encounter Details Date Type Department Care Team ([facility] st Contact Info) Description 11/08/2023 Orders Only [facility] MEDICINE 230 [place] [address] ProviderAnastasiya MD Social History Tobacco Use Types [...] on filedocumented in this encounter Care Teams Bank Teller Machine Mechanic Relationship Specialty Start Date End Date Amara Lou MD [address] [place] [phone] PCP - General Family Medicine 03/14/16 documented as of this encounter
--- OUTSIDE RECORDS SUMMARY | 2025-03-31 08:44 | XMS_ITS | Encounter Summary ---
Author Organization [employer] Address [address] [facility] 7 [place] [address] Care Team Providers Care On Site Soil Evaluator Name Role Phone Amara Lou MD Primary [...] on filedocumented in this encounter Care Teams On Site Soil Evaluator Relationship Specialty Start Date End Date Amara Lou MD [address] [place] [phone] PCP - General Family Medicine 03/14/16 documented as of this encounter
--- OUTSIDE RECORDS SUMMARY | 2025-03-31 08:44 | XMS_ITS | Encounter Summary ---
Author Organization [employer] Address [address] [facility] [address] 7[address] [place] [address] Care Team Providers Care Insurance Sales Agent Name Role Phone Amara Lou MD Primary Care Provider + Reason for Visit * Reason Comments Med Refill Encounter Details Date Type Department Care Team ([facility] st Contact Info) Description 09/06/2023 Refill [facility] OPTOMETRY [address] [place], [place] [phone] Garrett, Jaqueline, OD [address] [place] [address] Social History Tobacco Use Types Packs/Day Years [...] on filedocumented in this encounter Care Teams Insurance Sales Agent Relationship Specialty Start Date End Date Amara Lou MD [address] [place] [phone] PCP - General Family Medicine 03/14/16 documented as of this encounter
--- OUTSIDE RECORDS SUMMARY | 2025-03-31 08:44 | XMS_ITS | Encounter Summary ---
Author Organization [employer] Address [address] [facility] 7 [place] [address] Care Team Providers Care Forest Fire Lookout Name Role Phone Amara Lou MD Primary [...] on filedocumented in this encounter Care Teams Forest Fire Lookout Relationship Specialty Start Date End Date Amara Lou MD [address] [place] [phone] PCP - General Family Medicine 03/14/16 documented as of this encounter
--- OUTSIDE RECORDS SUMMARY | 2025-03-31 08:44 | XMS_ITS | Encounter Summary ---
Author Organization [employer] Address [address] [facility] 7 [place] [address] Care Team Providers Care Electrical Equipment Assembler Name Role Phone Amara Lou MD Primary Care Provider + Reason for Visit * Reason Comments Med Refill Encounter Details Date Type Department Care Team ([facility] st Contact Info) Description 11/04/2022 Refill [facility] MEDICINE 230 [place] [address] Amara Lou MD [address] [place] [address] Vertigo Social History Tobacco Use Types Packs/Day [...] giddiness documented in this encounter Care Teams Electrical Equipment Assembler Relationship Specialty Start Date End Date Amara Lou MD [address] [place] [address] PCP - General Family Medicine 03/14/16 documented as of this encounter
--- OUTSIDE RECORDS SUMMARY | 2025-03-31 08:45 | XMS_ITS | Encounter Summary ---
Author Organization [employer] Address [address] [facility] [address] [place] [address] Care Team Providers Care Laundry Washer Name Role Phone Amara Lou MD Primary Care Provider + Encounter Details Date Type Department Care Team ([facility] st Contact Info) Description 05/04/2022 Abstract [facility] ADULT DENTAL [address] [place] [address] Dental, Provider, DDS Social History Tobacco Use [...] on filedocumented in this encounter Care Teams Laundry Washer Relationship Specialty Start Date End Date Amara Lou MD [address] [place] [phone] PCP - General Family Medicine 03/14/16 documented as of this encounter
--- OUTSIDE RECORDS SUMMARY | 2025-03-31 08:45 | XMS_ITS | Encounter Summary ---
Author Organization [employer] Address [address] [facility] 7 [place] [address] Care Team Providers Care Air Bag Builder Name Role Phone Amara Lou MD [...] on filedocumented in this encounter Care Teams Air Bag Builder Relationship Specialty Start Date End Date Amara Lou MD [address] [place] [phone] PCP - General Family Medicine 03/14/16 documented as of this encounter
--- OUTSIDE RECORDS SUMMARY | 2025-03-31 08:45 | XMS_ITS | Encounter Summary ---
Author Organization [employer] Address [address] [facility] 7t [place] [address] Care Team Providers Care Buffing Line Set Up Worker Name Role Phone Amara Lou MD Primary Care Provider + Reason for Visit * Reason Comments Med Refill Encounter Details Date Type Department Care Team ([facility] st Contact Info) Description 06/03/2024 Refill [facility] MEDICINE 230 [place], [place] [phone] Teri Kat CN [address] [place] [address] Social History Tobacco Use Types Packs/Day Years [...] on filedocumented in this encounter Care Teams Buffing Line Set Up Worker Relationship Specialty Start Date End Date Amara Lou MD [address] [place] [phone] PCP - General Family Medicine 03/14/16 documented as of this encounter
--- OUTSIDE RECORDS SUMMARY | 2025-03-31 08:45 | XMS_ITS | Clinical Summary ---
Author Organization [employer] Address [address] [facility] 7t [place] [address] Care Team Providers Care Knife Finisher Name Role Phone Amara Lou MD Primary Care Provider + Allergies Active Allergy Reactions Criticality Noted Date Comments Clarithromycin High 08/28/2014 Monosodium Glutamate 07/21/2017 [place] Oil 08/13/2020 Tilactase 08/13/2020 Medications zoster vaccine, live, (Zostavax) 85226 UNT/0.65ML injection inject 0.65 milliliter by subcutaneous [...] FOR DIZZINESS 90 tablet 1 5 Active betamethasone valerate (Valisone) 0.1 % cream Apply topically if needed in the morning and at bedtime (dryness). 45 g 2 5 Active escitalopram (Lexapro) 5 MG tablet Take 1 tablet (5 mg) by mouth Once per day. 90 tablet 1 5 025 Active albuterol (ProAir HFA) 108 (90 Base) MCG/ACT inhaler Inhale 2 puffs every 4 (four) hours if needed for wheezing or shortness of breath. 18 g 5 Active meloxicam (Mobic) 15 MG tablet Take 1 tablet (15 mg) by mouth Once per day. 30 tablet 5 026 Active Active Problems Problem Noted Date Diagnosed [...] She tells me she has appointment with INTERIOR PAINTER (core drilling supervisor Flakita Yu) in few weeks. Increase [...] have breast cancer) and also verified with INTERIOR PAINTER if her breast lesions are not a contraindication for HRT (I believe they are not, but according to patient they told her there are premalignant lesions?). She will continue on vaginal estrogen cream for dyspareunia I will refer her to pelvic floor physical therapy at the [address] [place] [phone] in [place] I will treat anxiety and follow-up with her in 6 weeks Assessment & Plan (01/08/2024 10:23 AM EDT): On estrogen cream by INTERIOR PAINTER Advised to discuss systemic HRT instead due [...] exacerbation of arthralgias. Advised to discuss with INTERIOR PAINTER re oral HRT, has ? Hx breast [...] improve with HRT she will fu with INTERIOR PAINTER Assessment & Plan (11/24/2022 2:53 PM EDT): [...] up to date, obtain last report from [facility] INTERIOR PAINTER Mammogram: Reportedly up to date, obtain last report from [facility] Bone density test: N/A, due at age 67 Eye exam: Up to date, next one due on 11/2024 CRC screen: Obtain report form [facility] and fu at next appt Lipids/FBS: [...] menopausal treatment, (she wants to follow-up with core drilling supervisor for this, see above) Will add [...] of? Breast cancer, she should follow-up with INTERIOR PAINTER Primary osteoarthritis of both knees 05/04/2022 Assessment [...] for menopausal symptoms, she will follow-up with core drilling supervisor and with me in 3 months. [...] make sure that there is no other INTERIOR PAINTER pathology before I start HRT. She agreed with the POC. We will try to obtain 2021 pap smear and mammorgam from [facility], pt has appointment with INTERIOR PAINTER in February. FU in 2mo Assessment & Plan (11/24/2022 3:04 PM EDT): May be a candidate for HRT, I told her to fu with her INTERIOR PAINTER. Order labs to evaluate CV RF, dayami [...] Data 02/18/2025 9:00 AM EDT Office Visit [facility] [address] [place] [phone] Amara Lou MD Anxiety (Primary Dx); Arthralgia of both hands; Dumping syndrome; Menopause syndrome; Mass of breast, unspecified laterality; Allergic contact dermatitis, unspecified trigger; Postprandial bloating; Mild intermittent asthma without complication 02/18/2025 Travel 02/17/2025 Telephone [facility] [address] [place] [phone] Amara Lou MD chart prep 02/17/2025 Travel 02/12/2025 Orders Only GENERIC EXTERNAL DATA DEPARTMENT Provider, Generic External Data 02/07/2025 Patient Outreach [facility] [address] [place] [phone] Amara Lou MD Pre-visit Planning ([facility] screening completed on 12/05/2024) from Last 3 Months Immunizations Immunization Administration [...] housing situation today? I have sharlajane cole 12/05/[address] you [...] FT4 Routine 02/12/2025 2 :06 PM EDT HEPATITIS PANEL, GENERAL Routine 12/04/2024 9:28 AM [...] EDT) H. pylori Breath Test Negative Negative [facility] Comment:Antimicrobials, prot on pump inhibitors and bismuthpreparations are known to suppress H. pylori. Ingestingthese medications within two weeks prior to performing thebreath test may produce negative test results. A positiveresult is still clinically valid. 02/26/2025 10:4 5 AM EDT 02/26/2025 6:42 PM EDT Generic External Data Provider LAB BODY FLUIDS A ND STOOLS ORDERABLES Final Result Performing Organization Address [facility] Co de Phone Number [facility] [address] [place] [phone] * TSH with Reflex to Free T4 (02/12/2025 2:06 PM EDT) TSH reflex Free T4 1.50 0.32 - 4.0 uIU/mL [facility] 02/12/2025 2:06 PM EDT 02/12/2025 4:17 PM EDT Generic External Data Provider LAB BLOOD ORDERAB LES Final Result Performing Organization Address [facility] Co de Phone Number [facility] [address] [place] [phone] * Tissue Transglutaminase Antibody, IgA (02/12/2025 2:06 PM EDT) Transglutaminase IgA <1.0 U/mL [facility] Comment:Value Interpretation ----- <15.0 Antibody not detected> or = 15.0 Antibody detectedTHIS TEST WAS PERFORMED AT:[facility] [place] [id number] VIGIL MD 02/12/2025 2:06 PM EDT 02/12/2025 4:17 PM EDT Generic External Data Provider LAB BLOOD ORDERAB LES Final Result Performing Organization Address [facility]/ZIP Co de Phone Number [facility] [address] [place] [phone] * Immunoglobulin A (02/12/2025 2:06 PM EDT) Pathologist [facility] Immunoglobulin A, Qn, Serum 143 47 - 310 mg/dL [facility] Comment:THIS TEST WAS PERFOR MED AT:[facility] [place] [id number] VIGIL MD 02/12/2025 2:06 PM EDT 02/12/2025 4:17 PM EDT [employer] External Data Provider LAB BLOOD ORDERAB LES Final Result Performing Organization Address [facility] Co de Phone Number [facility] [address] [place] [address] [phone] * Hepatitis Panel, General (12/04/2024 9:28 AM EDT) [facility] Hepatitis A IgM Nonreactive Nonreactive [facility] Comment:IgM antibodies to MCDUFFIE V not detected; does not exclude earlyacute or recovered HAV infection. ~Hepatitis B Surface Antibody REACTIVE Nonreactive [facility] Comment:REACTIVE: > 11.99 mI U/mL Hepatitis B Core Antibody Nonreactive Nonreactive [facility] Hepatitis C Antibody Nonreactive Nonreactive [facility] Comment:Antibodies to HCV no t detected; does not exclude early acuteHCV infection. Hepatitis B Surface Ag Negative Negative [facility] Blood 12/04/2024 9:28 AM EDT 12/04/2024 9:28 AM EDT Amara Lou MD LAB BLOOD ORDERABLES Fin al Result [facility] [address] [place] [phone] [phone] * Pap Smear (02/15/2023) Pap Negative for intraephithelial lesion or malignancy Negative for intraephithelial lesion or malignancy, Other HPV Not Detected Undetected, Indeterminate, Quantitative, Not Detected Historical Provider HEALTH MAINTENANCE Final Result * Colonoscopy (03/19/2021 7:46 AM EDT) Historical Provider HEALTH MAINTENANCE Final Result from Last 3 Months or Most Recently Relevant to Health Maintenance Insurance [facility] , [address] [place] [address] Care Teams Knife Finisher Relationship Specialty Start Date End Date Amara Lou MD [address] [place] [phone] PCP - General Family Medicine 03/14/16
== END 2025-03-31 08:23 | disposition home or self-care (01) ==
LOC: HO.HMGCX 08:22
PROVIDERS: PCP Internal Medicine; Visit Provider Internal Medicine
DX: R10.13 Epigastric pain (principal)
CPT/HCPCS: 76700

== ENCOUNTER → 2025-03-31 08:30 | Outpatient (BNV) | payer OTHER, SELFPAY | PROVIDERS: PCP Internal Medicine; Visit Provider Radiology Diagnostic Radiology | DX: K76.0 Fatty (change of) liver, not elsewhere classified (principal) | CPT/HCPCS: 76700 ==

== ENCOUNTER 2025-05-05 13:37 | Outpatient (AMB) | payer OTHER, SELFPAY ==
--- NOTE | 2025-05-05 13:41 | A.OFFVIS_ITS ---
Vital Signs 05/05/25 13:42 Height 5 ft Weight 121 lb 4.068 oz BMI 23.7 BP 120/80 Blood Pressure Location Lt brachial Position Sitting Pulse 69 Intake Visit Reasons: s/p EGD Intake Note: Follow-up after EGD still having GERD General Utility Maintenance Repairer Required: No Allergies clarithromycin (CLARITHROMYCIN) Allergy (Intermediate, Verified 02/05/25 15:06) INSOMNIA HPI Comments Details: 60 y.o F with PMH of PUD s/p partial gastrectomy, POTS, asthma who is here for GI issues as below. Pt reports longstanding issues with gastritis and gastric ulcers - had to have a surgery back in [facility] for duodenal ulcer when she was in her teens. Is very sensitive to certain foods in terms of pain and bloating. More recently since 2-3 months ago, has been noticing increased bloating and discomfort juan c on empty stomach. Has increased belching. Unable to tolerate her morning coffee. Sometimes takes crackers to help. Bowels are normal colored and normal consistency. Has been taking pantoprazole which hasnt been helping. Prev prescribed famotidine by [facility] which was helpful. Also notices some correlation with stress levels at home - was sick recently. Last colo around 2019 per pt report with 10 year recall. 03/27/25: * Irregular Z line (biopsy) * Normal stomach (biopsy) * Normal duodenum (biopsy)?? Path: A. Duodenum, biopsy: Duodenal mucosa within normal limits. B. Stomach, body, biopsy: Oxyntic mucosa with mild chronic inactive inflammation; no Helicobacter organisms seen. C. Stomach, antrum, biopsy: Antral-type mucosa with mild chronic inactive inflammation and intestinal metaplasia (incomplete-type); no Helicobacter organisms seen. D. EG junction, biopsy: - Cardiofundic-type mucosa with moderate chronic active inflammation; no intestinal metaplasia seen. - Squamous epithelium within normal limits. E. Esophagus, middle, biopsy: Squamous epithelium within normal limits; no inflammation seen. 05/05/25: Here for follow up. Reports was doing very well until she started topical estrogen and progesterone pills for menopause 2 weeks. Now has intermittnet crampign and bloating. Also reports that before this was in [place] so wonders if something in the food here in [place] is triggering her sx. Otherwise off pepcid as was relatively asymptomatic from heartburn standpoint. [facility] Medical History (Updated 03/27/25 @ 06:52 by Margaret Elam, RN) Anxiety Depression History of gastric ulcer Prolapsed external hemorrhoids Surgical History (Updated 03/27/25 @ 06:43 by Margaret Elam, RN) Hx of esophagogastroduodenoscopy Hx of colonoscopy (~2019) Hx of section History of partial gastrectomy Social History (Updated 02/05/25 @ 15:10 by April Wyatt) Household Members: Family Alcohol intake: never Patient Tobacco Use Status: Never used Tobacco Review of Systems Const All systems reviewed & are unremarkable except as noted in HPI and below Physical Exam Exam Exam: No apparent distress Nonicteric Abdomen soft, nondistended Alert and oriented x3, normal gait Vital Signs: Last Vital Signs Pulse 69 05/05/25 13:42 BP 120/80 05/05/25 13:42 BMI result Body Mass Index 23.7 Assessment & Plan Assessment & Plan (1) Postprandial epigastric pain: Code(s): R10.13 - Epigastric pain Category: Medical (2) Abdominal bloating: Code(s): R14.0 - Abdominal distension (gaseous) Category: Medical (3) History of partial gastrectomy: Code(s): Z90.3 - Acquired absence of stomach [part of] Category: Surgical Plan Reassured re normal EGD and path findings. Pt also without heartburn. Occ gets crampign and bloating and wonders if its from HRT. Advised to discuss further with OB-MANAGER AREA. She also plans to make a food diary to help identify any dietary triggers. UGIS pending, advised that if sx persist to keep the appt otherwise can cancel. Follow up 4 months after UGIS Coding Level of Care Code Est Pt Level 4 (26459) Diagnoses Postprandial epigastric pain R10.13 Abdominal bloating R14.0 History of partial gastrectomy Z90.3
[2025-05-05 13:42] VITALS: BP 120/80; PULSE 69; BMI 23.7
--- OUTSIDE RECORDS SUMMARY | 2025-05-05 18:26 | XMS_ITS | Encounter Summary ---
Author Organization [employer] Address [address] [facility] [address] [place] [address] Care Team Providers Care Loan Approver Name Role Phone Amara Lou MD Primary [...] on filedocumented in this encounter Care Teams Loan Approver Relationship Specialty Start Date End Date Amara Lou MD [address] [place] [phone] PCP - General Family Medicine 03/14/16 documented as of this encounter
--- OUTSIDE RECORDS SUMMARY | 2025-05-05 18:26 | XMS_ITS | Encounter Summary ---
Author Organization [employer] Address [address] [facility] 7 [place] [address] Care Team Providers Care Grease Press Helper Name Role Phone Amara Lou MD [...] on filedocumented in this encounter Care Teams Grease Press Helper Relationship Specialty Start Date End Date Amara Lou MD [address] [place] [phone] PCP - General Family Medicine 03/14/16 documented as of this encounter
--- OUTSIDE RECORDS SUMMARY | 2025-05-05 18:26 | XMS_ITS | Encounter Summary ---
Author Organization [employer] Address [address] [facility] [address] [place] [address] Care Team Providers Care Fraud Examiner Name Role Phone Amara Lou MD Primary Care Provider + Encounter Details Date Type Department Care Team ([facility] st Contact Info) Description 11/08/2023 Orders Only [facility]INE [address] [place] [address] ProviderAnastasiya MD Social History Tobacco Use Types [...] on filedocumented in this encounter Care Teams Fraud Examiner Relationship Specialty Start Date End Date Amara Lou MD [address] [place] [phone] PCP - General Family Medicine 03/14/16 documented as of this encounter
--- OUTSIDE RECORDS SUMMARY | 2025-05-05 18:26 | XMS_ITS | Encounter Summary ---
Author Organization [employer] Address [address] [facility] [address] [place] [address] Care Team Providers Care Automotive Fleet Supervisor Name Role Phone Amara Lou MD Primary Care Provider + Reason for Visit * Reason Comments Med Refill Encounter Details Date Type Department Care Team ([facility] st Contact Info) Description 09/06/2023 Refill [facility] OPTOMETRY [address] [place], [place] [phone] Garrett, Jaqueline, OD [address] [place] [address] Social History Tobacco Use Types Packs/Day Years [...] on filedocumented in this encounter Care Teams Automotive Fleet Supervisor Relationship Specialty Start Date End Date Amara Lou MD [address] [place] [phone] PCP - General Family Medicine 03/14/16 documented as of this encounter
--- OUTSIDE RECORDS SUMMARY | 2025-05-05 18:26 | XMS_ITS | Encounter Summary ---
Author Organization [employer] Address [address] [facility] 7 [place] [address] Care Team Providers Care Plate Corrector Name Role Phone Amara Lou MD Primary Care Provider + Reason for Visit * Reason Comments Med Refill Encounter Details Date Type Department Care Team ([facility] st Contact Info) Description 11/04/2022 Refill [facility] MEDICINE [address] [place] [address] Amara Lou MD [address] [place] [address] Vertigo Social History Tobacco Use Types Packs/Day [...] giddiness documented in this encounter Care Teams Plate Corrector Relationship Specialty Start Date End Date Amara Lou MD [address] [place] [address] PCP - General Family Medicine 03/14/16 documented as of this encounter
--- OUTSIDE RECORDS SUMMARY | 2025-05-05 18:26 | XMS_ITS | Encounter Summary ---
Author Organization [employer] Address [address] [facility] [address] [place] [address] Care Team Providers Care Utility Bag Assembler Name Role Phone Amara Lou MD Primary Care Provider + Reason for Visit * Reason Comments Med Refill Encounter Details Date Type Department Care Team ([facility] st Contact Info) Description 12/23/2022 Refill [facility] MEDICINE [address] [place], [place] [phone] Amara Lou MD [address] [place] [address] Vertigo Social History Tobacco Use Types Packs/Day [...] giddiness documented in this encounter Care Teams Utility Bag Assembler Relationship Specialty Start Date End Date Amara Lou MD [address] [place] [address] PCP - General Family Medicine 03/14/16 documented as of this encounter
--- OUTSIDE RECORDS SUMMARY | 2025-05-05 18:26 | XMS_ITS | Encounter Summary ---
Author Organization [employer] Address [address] [facility] [address] [place] [address] Care Team Providers Care Dental Service Technician Name Role Phone Amara Lou MD Primary Care Provider + Encounter Details Date Type Department Care Team ([facility] st Contact Info) Description 05/04/2022 Abstract [facility] ADULT DENTAL [address] [place] [address] Dental, Provider, DDS Social History Tobacco Use [...] filedocumented in this encounter Care Teams Dental Service Technician Relationship Specialty Start Date End Date Amara Lou MD [address] [place] [phone] PCP - General Family Medicine 03/14/16 documented as of this encounter
--- OUTSIDE RECORDS SUMMARY | 2025-05-05 18:26 | XMS_ITS | Clinical Summary ---
Author Organization [employer] Address [address] [facility] [address] [place] [address] Care Team Providers Care Steam Turbine Operator Name Role Phone Amara Lou MD Primary Care Provider + Allergies Active Allergy Reactions Criticality Noted Date Comments Clarithromycin High 08/28/2014 Monosodium Glutamate 07/21/2017 [place] [employer] 08/13/2020 Tilactase 08/13/2020 Medications zoster vaccine, live, (Zostavax) 60951 UNT/0.65ML injection inject 0.65 milliliter by subcutaneous [...] mouth Once per day. 90 tablet 1 04/23/2025 3:43 PM EST 5 026 Active albuterol (ProAir HFA) 108 (90 Base) [...] She tells me she has appointment with RAIL BENDER (registered nursing professor Flakita Yu) in few weeks. Increase Lexapro [...] have breast cancer) and also verified with RAIL BENDER if her breast lesions are not a contraindication for HRT (I believe they are not, but according to patient they told her there are premalignant lesions?). She will continue on vaginal estrogen cream for dyspareunia I will refer her to pelvic floor physical therapy at the [address] [place] [address] in [place] I will treat anxiety and follow-up with her in 6 weeks Assessment & Plan (01/08/2024 10:23 AM EDT): On estrogen cream by RAIL BENDER Advised to discuss systemic HRT instead due [...] exacerbation of arthralgias. Advised to discuss with RAIL BENDER re oral HRT, has ? Hx breast [...] improve with HRT she will fu with RAIL BENDER Assessment & Plan (11/24/2022 2:53 PM EDT): [...] date, obtain last report from [facility] RAIL BENDER Mammogram: Reportedly up to date, [facility] Bone density test: N/A, due at age 67 Eye exam: Up to date, next one due on 11/2024 CRC screen: Obtain report form [facility] and fu at next appt Lipids/FBS: [...] menopausal treatment, (she wants to follow-up with registered nursing professor for this, see above) Will add hydroxyzine [...] of? Breast cancer, she should follow-up with RAIL BENDER Primary osteoarthritis of both knees 05/04/2022 Assessment [...] for menopausal symptoms, she will follow-up with registered nursing professor and with me in 3 months. Contact [...] make sure that there is no other RAIL BENDER pathology before I start HRT. She agreed with the POC. We will try to obtain 2021 pap smear and mammorgam from [facility], pt has appointment with RAIL BENDER in February. FU in 2mo Assessment & Plan (11/24/2022 3:04 PM EDT): May be a candidate for HRT, I told her to fu with her RAIL BENDER. Order labs to evaluate CV RF, dayami [...] Encounters Date Type Department Care Team Description 03/27/2025 Orders Only GENERIC EXTERNAL DATA DEPARTMENT Provider, Generic External Data 02/26/2025 Orders Only GENERIC EXTERNAL DATA DEPARTMENT Provider, Generic External Data 02/18/2025 9:00 AM EDT Office Visit [facility] [address] [place] [phone] Amara Lou MD Anxiety (Primary Dx); Arthralgia of both hands; Dumping syndrome; Menopause syndrome; Mass of breast, unspecified laterality; Allergic contact dermatitis, unspecified trigger; Postprandial bloating; Mild intermittent asthma without complication 02/18/2025 Travel 02/17/[address] [address] Amara Lou MD chart prep 02/17/2025 Travel 02/12/2025 Orders Only GENERIC EXTERNAL DATA DEPARTMENT Provider, Generic External Data 02/07/2025 Patient Outreach [address] [address] Amara Lou MD Pre-visit Planning ([facility] screening completed on 12/05/2024) from Last 3 [...] Years (1 of 2 - PCV) 1986 RSV Patients and Patients Aged 60 years or older (1 - Risk 50-74 years 1-dose series) 2017 Zoster Vaccines (2 of 3) 03/05/2019 01/08/2019 [...] 12/05/2025 12/05/2024 Depression Screening 12/05/2025 12/05/2024, 12/06/19 Disability Screening 12/05/2025 12/05/2024 SDOH Screening 12/05/2025 12/05/2024 Tobacco Screening 12/05/2025 12/05/2024 Pap Smear 02/15/2026 02/15/2023 Cervical Cancer Screening 02/16/2028 HPV/Cotest 02/16/2028 02/15/2023 Colonoscopy 03/19/2031 03/19/2021, 03/19/2021 Colorectal Cancer Screening 03/19/2031 DTaP/Tdap/Td Vaccines (3 - Td or Tdap) 06/15/2032 06/15/2022, 04/20/2012, 07/27/2001 Hepatitis B Vaccines Discontinued 06/12/2001 Hepatitis C [...] Procedure Name Priority Date/Time Associated Diagnosis Comments US ABDOMEN COMPLETE Routine 04/01/2025 1 2:12 PM EDT HEMATOXYLIN AND EOSIN STAIN Routine 03/27/2025 7:53 AM EDT HELICOBACTER PYLORI, UREA BREATH TEST Routine 02/26/2025 [...] Recently Relevant to Health Maintenance Results * US Abdomen Complete (04/01/2025 12:12 PM EDT) Anatomical Region Laterality Modality Abdomen Ultrasound 04/01/2025 12:1 2 PM EDT Narrative 04/01/2025 12:13 PM EDT [facility] [address] [place] [address] [place] [address] Ultrasound Report Signed Patient: Amara Kennedy MR#: [id number] : 1965 Acct:[id number] Age/Sex: 60 / F ADM Date: 03/31/25 Loc: HO.HMGCX Attending Dr: Larisa Tony MD Ordering Physician: Larisa Tony MD Date of Service: 03/31/25 Procedure(s): US abdomen complete Accession Number(s): [id number] cc: Amara Lou MD; Larisa Tony MD Reason for Exam: R10.13 - Epigastric pain CLINICAL HISTORY: R10.13 - Epigastric pain US abdomen complete with color Doppler Comparison: None Findings: The visualized pancreas, aorta, and inferior vena cava are unremarkable. Liver normal size and mildly echogenic throughout. Right lobe 11.9 cm length. No focal hepatic masses. Common duct 5.0 mm diameter. Physiologic distention of the gallbladder. No gallstones or sludge. No gallbladder wall thickening. No pericholecystic fluid. No sonographic Cardenas sign. Main portal vein antegrade. Right kidney normal size, 8.5 cm in length. Normal cortical width and echotexture. No solid or cystic renal masses. No nephrolithiasis. No hydronephrosis. Left kidney normal, 9.7 cm in length. Normal cortical width and echotexture. No solid or cystic renal masses. No nephrolithiasis. No hydronephrosis. Spleen measures 9.1 cm. No splenic masses. No ascites. No lymphadenopathy. Impression: 1. Hepatic steatosis 2. Normal gallbladder. 3. Normal sonographic appearance of the pancreas This document has been electronically signed by: Terry Keita MD on 04/01/2025 12:12:51 Dictated By: Terry Keita MD Signed By: <Electronically signed by Terry Keita MD in OV> 04/01/25 1213 DD/ 121 TD/TT: 04/01/25 1212 Receptionist Doctor'S Office: Procedure Note Donotuseinterpreter, Image - 04/01/2025 [facility] [address] [place] [address] [place] [address] Ultrasound Report Signed Patient: Amara Kennedy LMR#: [id number] : 1965Acct:[id number] Age/Sex: 60 / FADM Date: 03/31/25 Loc: HO.HMGCX Attending Dr: Larisa Tony MD Ordering Physician: Larisa Tony MD Date of Service: 03/31/25 Procedure(s): US abdomen complete Accession Number(s): [id number] cc: Amara Lou MD; Larisa Tony MD Reason for Exam: R10.13 - Epigastric pain CLINICAL HISTORY: R10.13 - Epigastric pain US abdomen complete with color Doppler Comparison: None Findings: The visualized pancreas, aorta, and inferior vena cava are unremarkable. Liver normal size and mildly echogenic throughout. Right lobe 11.9 cm length. No focal hepatic masses. Common duct 5.0 mm diameter. Physiologic distention of the gallbladder. No gallstones or sludge. No gallbladder wall thickening. No pericholecystic fluid. No sonographic Cardenas sign. Main portal vein antegrade. Right kidney normal size, 8.5 cm in length. Normal cortical width and echotexture. No solid or cystic renal masses. No nephrolithiasis. No hydronephrosis. Left kidney normal, 9.7 cm in length. Normal cortical width and echotexture. No solid or cystic renal masses. No nephrolithiasis. No hydronephrosis. Spleen measures 9.1 cm. No splenic masses. No ascites. No lymphadenopathy. Impression: 1. Hepatic steatosis 2. Normal gallbladder. 3. Normal sonographic appearance of the pancreas This document has been electronically signed by: Terry Keita MD on 04/01/2025 12:12:51 Dictated By: Terry Keita MD Signed By: <Electronically signed by Terry Keita MD in OV> 04/01/251212 DD/ 121 TD/TT: 04/01/251211 Receptionist Doctor'S Office: us [facility] External Provider IMG US PROCEDURES Edited Result - Final * Hematoxylin and Eosin Stain (03/27/2025 7:53 AM EDT) 03/27/2025 7:53 AM EDT 03/27/2025 10:37 AM EDT [facility] LABS - 03/31/2025 2:30 PM EDT ----- ------- Name: Amara Kennedy Age/Sex: 60/F : 1965 Unit#: [id number] Attend Dr: Larisa Toyn MD Re03/27/25 Status: [facility] Location: [facility] Disch: ----- ------- SPEC : [id number] RECD: 03/27/25 STATUS: ALLEN CARTER NUM: [id number] HARSH: 03/27/25 [facility] DR: Larisa Tony MD ENTERED: 03/27/25 SP TYPE: Surgical OTHR DR: Amara Lou MD ORDERED: HE Stain/12, Gross Micro L4/5, IHC/2, Special st. 2/, H. pylori/2, AB/PAS/ Diagnosis A. Duodenum, biopsy: Duodenal mucosa within normal limits. B. Stomach, body, biopsy: Oxyntic mucosa with mild chronic inactive inflammation; no Helicobacter organisms seen. C. Stomach, antrum, biopsy: Antral-type mucosa with mild chronic inactive inflammation and intestinal metaplasia (incomplete-type); no Helicobacter organisms seen. D. EG junction, biopsy: - Cardiofundic-type mucosa with moderate chronic active inflammation; no intestinal metaplasia seen. - Squamous epithelium within normal limits. E. Esophagus, middle, biopsy: Squamous epithelium within normal limits; no inflammation seen. Clinical History Pre-Op Dx: Ulcer, epigastric pain Post-Op Dx: Normal Microscopic Description A-E. Microscopic sections examined. Intestinal metaplasia is seen in C and no metaplastic changes are seen in A, B and D, supported by AB/PAS stains; no Helicobacter organisms are seen, supported by H. pylori immunostain (B and C). Material Received A. Duodenum B. Gastric body C. Gastric antrum D. EG junction E. Middle esophagus Gross Description Received in 5 parts. A. Received in formalin labeled duodenum are 3 fragments of mackay-white soft tissue measuring 0.2-0.3 cm in greatest dimension which are wrapped in lens paper and entirely submitted for microscopic examination, 3 pieces in cassette A. CONTINUED ON NEXT PAGE ----- ------- Name: Amara Kennedy Age/Sex: 60/F : 1965 [id number] Unit#: [id number] Attend Dr: Larisa Tony MD Re03/27/25 Status: [facility] Location: [facility] Disch: ----- ------- SPEC : [id number] RECD: 03/27/25-1037 STATUS: ALLEN CARTER NUM: [id number] HARSH: 03/27/250753 [facility] DR: Larisa Tony MD ENTERED: 03/27/25-7 SP TYPE: Surgical OTHR DR: Amara Lou MD ORDERED: HE Stain/12, Gross Micro L4/5, IHC/2, Special st. 2/4, H. pylori/2, AB/PAS/4 Gross Description (Continued) B. Received in formalin labeled gastric body are 2 fragments of mackay-white soft tissue measuring 0.3 and 0.4 cm in greatest dimension which are wrapped in lens paper and entirely submitted for microscopic examination, 2 pieces in cassette B. C. Received in formalin labeled gastric antrum are 4 fragments of mackay-white soft tissue measuring 0.2-0.4 cm in greatest dimension which are wrapped in lens paper and entirely submitted for microscopic examination, 4 pieces in cassette C. D. Received in formalin labeled EG junction are 3 fragments of mackay-white soft tissue measuring 0.4-0.5 cm in greatest dimension which are wrapped in lens paper and entirely submitted for microscopic examination, 3 pieces in cassette D. E. Received in formalin labeled middle esophagus are 4 fragments of translucent, white soft tissue measuring 0.2-0.4 cm in greatest dimension which are wrapped in lens paper and entirely submitted for microscopic examination, 4 pieces in cassette E. ([facility]) Special studies ordered and performed: Immunostain for H. pylori on B and C; AB/PAS stains on A, B, C and D IHC S/NG Disclaimer NOTE: Unless otherwise stated, all tissue is formalin-fixed and paraffin-embedded. Some or all of the immunohistochemical tests reported herein may have been developed and their performance characteristics determined by [facility]. They have not been cleared or approved by the U.S. Food and Drug Administration (FDA). However, the FDA has determined that such clearance or approval is not necessary. This laboratory is certified under the Clinical Laboratory Improvement Amendments of 1988 (CLIA) as qualified to perform high complexity clinical laboratory testing. Copies To: Amara Lou MD [address] [address] Larisa Tony MD [facility] [address] [place] [id number] [email or web address] CONTINUED ON NEXT PAGE ----- ------- Name: Amara Kennedy Age/Sex: 60/F : 1965 Unit#: [id number] Attend Dr: Larisa Tony MD Re03/27/25 Status: [facility] Location: [facility] Disch: ----- ------- SPEC : [id number] RECD: 03/27/25 STATUS: ALLEN CARTER NUM: [id number] HARSH: 03/27/25 [facility] DR: Larisa Tony MD ENTERED: 03/27/25 SP TYPE: Surgical OTHR DR: Amara Lou MD ORDERED: HE Stain/12, Gross Micro L4/5, IHC/2, Special st. 2/4, H. pylori/2, AB/PAS/4 ----- ------- Signed (signature on file) Randall Angulo MD 03/31/25 1023 ----- ------- END OF REPORT us Generic External Data Provider LAB BLOOD ORDERAB LES Final Result [facility] [address] [place] [address] [phone] * Helicobacter pylori, Urea Breath Test (02/26/2025 10:45 AM EDT) H. pylori Breath Test Negative Negative [facility] Comment:Antimicrobials, prot on pump inhibitors and bismuthpreparations are known to suppress H. pylori. Ingestingthese medications within two weeks prior to performing thebreath test may produce negative test results. A positiveresult is still clinically valid. 02/26/2025 10:4 5 AM EDT 02/26/2025 6:42 PM EDT Generic External Data Provider LAB BODY FLUIDS A ND STOOLS ORDERABLES Final Result Performing Organization Address [facility] de Phone Number [facility] [address] [place] [phone] * TSH with Reflex to Free T4 (02/12/2025 2:06 PM EDT) Pathologist [facility] TSH reflex Free T4 1.50 0.32 - 4.0 uIU/mL [facility] 02/12/2025 2:06 PM EDT 02/12/2025 4:17 PM EDT Generic External Data Provider LAB BLOOD ORDERAB LES Final Result Performing Organization Address [facility] Phone Number [facility] [address] [place] [phone] * Tissue Transglutaminase Antibody, IgA (02/12/2025 2:06 PM EDT) [facility] Transglutaminase IgA <1.0 U/mL [facility] Comment:Value Interpretation ----- <15.0 Antibody not detected> or = 15.0 Antibody detectedTHIS TEST WAS PERFORMED AT:[employer] [address] [id number] VIGIL MD 02/12/2025 2:06 PM EDT 02/12/2025 4:17 PM EDT Generic External Data Provider LAB BLOOD ORDERAB LES Final Result Performing Organization Address [facility] Co de Phone Number [facility] [address] [place] [phone] * Immunoglobulin A (02/12/2025 2:06 PM EDT) Pathologist [facility] Immunoglobulin A, Qn, Serum 143 47 - 310 mg/dL [facility] Comment:THIS TEST WAS PERFOR MED AT:[employer] [place] [phone] VIGIL MD 02/12/2025 2:06 PM EDT 02/12/2025 4:17 PM EDT Generic External Data Provider LAB BLOOD ORDERAB LES Final Result Performing Organization Address [facility] Co de Phone Number [facility] [address] [place] [address] [phone] * Hepatitis Panel, General (12/04/2024 9:28 AM EDT) [facility] Hepatitis A IgM Nonreactive Nonreactive [facility] Comment:IgM antibodies to MCDUFFIE V not detected; does not exclude earlyacute or recovered HAV infection. ~Hepatitis B Surface Antibody REACTIVE Nonreactive [facility] Comment:REACTIVE: > 11.99 mI U/mL Hepatitis B Core Antibody Nonreactive Nonreactive [facility] Hepatitis C Antibody Nonreactive Nonreactive [facility] Comment:Antibodies to HCV no t detected; does not exclude early acuteHCV infection. Hepatitis B Surface Ag Negative Negative [facility] Blood 12/04/2024 9:28 AM EDT 12/04/2024 9:28 AM EDT Amara Lou MD LAB BLOOD ORDERABLES Fin al Result Performing Organization Address [facility] Co de Phone Number [facility] [address] [place] [phone] * Pap Smear (02/15/2023) Pathologist [facility] Pap Negative for intraephithelial lesion or malignancy Negative for intraephithelial lesion or malignancy, Other HPV Not Detected Undetected, Indeterminate, Quantitative, Not Detected Historical Provider HEALTH MAINTENANCE Final Result * Colonoscopy (03/19/2021 7:46 AM EDT) us Historical Provider HEALTH MAINTENANCE Final Result from Last 3 Months or Most Recently Relevant to Health Maintenance Insurance [facility] [address] [place] [address] Care Teams Steam Turbine Operator Relationship Specialty Start Date End Date Amara Lou MD [address] [place] [phone] PCP - General Family Medicine 03/14/16
--- OUTSIDE RECORDS SUMMARY | 2025-05-05 18:26 | XMS_ITS | Encounter Summary ---
Author Organization [employer] Address [address] [facility] [address] [place] [address] Care Team Providers Care Crossband Layer Name Role Phone Amara Lou MD Primary Care Provider + Encounter Details Date Type Department Care Team (Latest Contact Info) Description 06/19/2018 Abstract C CONVERSIONS Dental, Provider, DDS Social [...] on filedocumented in this encounter Care Teams Crossband Layer Relationship Specialty Start Date End Date Amara Lou MD [address] [place] [phone] PCP - General Family Medicine 03/14/16 documented as of this encounter
--- OUTSIDE RECORDS SUMMARY | 2025-05-05 18:26 | XMS_ITS | Encounter Summary ---
Author Organization [employer] Address [address] [facility] [address] [place] [address] Care Team Providers Care Skeet Operator Name Role Phone Amara Lou MD Primary Care Provider + Reason for Visit * Reason Comments Med Refill Encounter Details Date Type Department Care Team ([facility] st Contact Info) Description 06/03/2024 Refill [facility] [address] [place], [place] [phone] Teri Kat CN [address] [place] [address] Social History Tobacco Use Types Packs/Day Years [...] on filedocumented in this encounter Care Teams Skeet Operator Relationship Specialty Start Date End Date Amara Lou MD [address] [place] [phone] PCP - General Family Medicine 03/14/16 documented as of this encounter
== END 2025-05-05 14:33 | disposition home or self-care (01) ==
LOC: HO.HGI 13:38
PROVIDERS: PCP Internal Medicine; Visit Provider Internal Medicine
DX: R10.13 Epigastric pain (principal); R14.0 Abdominal distension (gaseous); Z90.3 Acquired absence of stomach [part of]
CPT/HCPCS: 99214